=== PATIENT | female | born 1945 | race Caucasian/White ===

== ENCOUNTER 2016-08-26 11:43 | Inpatient (IN) | payer MEDICARE, MEDICAID ==
[~2016-08-26] VITALS: Ht 152.4 cm; Wt 61.5 kg
[~2016-08-26 11:43] MED LIST: *WHEELCHAI; /ADVA50050; /ALEN70TA; /ALEN70TA OR; /ALEN7SOL OR; /AUGM875TA; /AUGM875TA PO; /ESOM40CA; /ESOM40CA OR; /MOXI40TA; /PANT40TA; /TIOT18INH; /TIOT18INH INH; /WARF2TA OR; /WARF5TA OR; ACET500C; ADVAIR250 INHALATION; ADVAIR500 INHALATION; ALBOTERNEB INHALATION; ALBU17IN2 INH; ALPR0.25; ALPR0.25 OR; ALPR0.25 PO; ALTA1CAP2 PO; AMOXIL875 PO; ASPEC325 PO; ASPI325T; ASPI81TA83 OR; ATROV NEBS; AVALOX; AVELOX PO; BABY81CH; BACT2CRE TOP; CAHNTIXC PO; CAL/VITD PO; CALC12502 OR; CARAFATE1 PO; CARD60TA OR; CEFTIN500 PO; CELEBRE200 PO; CHAN0.5P PO; CIPR500T19; CIPR500T4; CIPRO PO; CLARINEX PO; COMBAER6 INH; COMBIVENT; COMBIVENT PO; COMBVENT; COMBVENT INH; DARVOCET-N PO; DECADRON PO; DETR1TAB4 PO; DETR2CAP; DILT120C79 PO; DOCQ100C PO; DOXY100T; DUONSOL; DUONSOL IN; DUONSOL INHALATION; ECOT325T5; ECOT81TA5 PO; ESTRACE PO; FAMO20TA PO; FAMO20TA2 PO; FLAG500T; FLEXERIL PO; FLEXERIL10 PO; FLEXERIL5 PO; FLOVENT110 PO; FLUC10TA; FURO40TA2 PO; GLUC500T; GUAI1TAB PO; HABITROL14 TOPICAL; IBUP-1114 PO; IMOD2TAB16 PO; KLOR1TAB77 PO; KLORCON20 PO; LACTOBACILLUS; LASI20TA; LASI20TA OR; LASI40TA; LASIX40 PO; LEVA500T; LEVA500T OR; LEVA500T PO; LEVA750T7 PO; LORTAB5 PO; MAGN400T5 PO; METF500T4; METO5TAB2 PO; MUCI600T37 PO; MUCINEX; MUCINEX OR; MUCINEX PO; NEXI40CA PO; NICO21DI4; NYSTAT100 PO; NYSTATIN ORAL; NYSTATINCR TOPICAL; ORASONE; OSCAL PO; OYST500T58; PLAV75TA2; PLAV75TA2 OR; POTA10CA2 PO; POTA20TA; POTA20TA OR; POTA20TA2; PRED10TA PO; PRED10TA2; PRED10TA2 PO; PRED20TA; PRED20TA OR; PRED5TAB; PREDNISO10 PO; PREDNISO20 PO; PREDNISON5 PO; PREVACID15 PO; PRILOSEC20 PO; PROAAER10 INH; PROTONIX40 PO; QUININE325 PO; RAMI25CA; RAMI25CA OR; RAMI25CA PO; ROBAXIN500 PO; SALINE; SHOWERCH; SOMA250T PO; SPIR1CAP INH; SYMB16INH INH; SYMB80AE; SYMB80AE IN; SYMBI INHALATION; TETR500C OR; TOLT2TA OR; TORADOL PO; TRAM50TA2 OR; TUMS500C; TYLE325T5 PO; TYLE500T53; TYLE500T53 OR; TYLENOL500 PO; TYLENOLCOD PO; ULTRAM50 PO; VARE1TA; VENTAER; VENTAER INH; VENTOLIN NEBULIZER INH; VICODIN PO; VIOXX25 PO; WELLBSR150 PO; XANA0.25; XANAX0.25 PO; [UNRECOGNIZED DRUG - CODE]; [UNRECOGNIZED DRUG - CODE] PO; [UNRECOGNIZED DRUG - OTHER]; [UNRECOGNIZED DRUG - OTHER]; [UNRECOGNIZED DRUG - OTHER]; [UNRECOGNIZED DRUG - OTHER] PO; [UNRECOGNIZED DRUG - OTHER] PO; mucinex
[2016-08-26] MEDS ORDERED: TRAM50TA2 PO ×2 (12:08→16:26)
[2016-08-26] MEDS ORDERED: PRED5TA PO ×2 (12:08→16:26)
[2016-08-26] MEDS ORDERED: TYLE500T78 PO ×2 (12:08→16:26)
[2016-08-26] MEDS ORDERED: BLIN0.25 OP (12:08)
[2016-08-26] MEDS ORDERED: SPIR25TA2 PO ×2 (12:08→16:26)
[2016-08-26] MEDS ORDERED: ALPR0.25 PO ×2 (12:08→16:26)
[2016-08-26] MEDS ORDERED: COLA100C5 PO ×2 (12:08→16:26)
[2016-08-26] MEDS ORDERED: INCR1INH IN (12:08)
[2016-08-26] MEDS ORDERED: IBUP-1114 PO ×2 (12:08→16:26)
[2016-08-26] MEDS ORDERED: LORA10CA PO (12:08)
[2016-08-26 12:42] LABS: ABG BASE EXCESS 12.2 (-2.0-2.0); ABG PARTIAL PRESSURE O2 96.3 mmHg (75.0-100.0); ABG pH (ARTERIAL) 7.395 UNITS (7.350-7.450)
[2016-08-26] MEDS ORDERED: methylPREDNISolone INJ 125 MG/2 ML VIAL (J2930) IV ONE (12:45)
[2016-08-26 12:46] LABS: ABG PARTIAL PRESSURE CO2 66.8 mmHg (35.0-45.0)
[2016-08-26 12:54] LABS: BASO % 0.2 % (0.0-1.0); EOS # 0.1 K/mm3 (0.0-0.50); EOS % 0.8 % (0.0-3.0); LARGE UNSTAINED CELL # 0.1 K/mm3 (0.0-0.4); LYMPH # 1.5 K/mm3 (1.5-4.5); LYMPH % 11.7 % (24.0-44.0); MEAN CORPUSCULAR HEMOGLOBIN 29.8 pg (27.0-33.0); MEAN CORPUSCULAR HGB CONC 33.2 g/dl (32.0-36.5); MEAN CORPUSCULAR VOLUME 89.8 fl (80.0-96.0); MONO # 0.6 K/mm3 (0.0-0.8); NEUTROPHILS # 9.6 K/mm3 (1.8-7.7); NEUTROPHILS % 81.3 % (36.0-66.0); PLATELET COUNT, AUTOMATED 343 k/mm3 (150-450); RED CELL DISTRIBUTION WIDTH 13.4 % (11.5-14.5); WHITE BLOOD COUNT 11.8 K/mm3 (4.0-10.0)
[2016-08-26] MEDS: IPRATROPIUM 0.5MG/ALBUTEROL 2.5MG INH SOL UD 3ML (DUONEB)(J7620) NEB SCH ×4 (12:55→20:24)
[2016-08-26 12:56] LABS: INR 0.98
[2016-08-26 12:58] LABS: ALKALINE PHOSPHATASE 105 U/L (45-117); ALT/SGPT 22 U/L (12-78); AMYLASE 26 U/L (25-115); ANION GAP 6 MEQ/L (8-16); AST/SGOT 14 U/L (15-37); BILIRUBIN,DIRECT < 0.1 MG/DL (0.0-0.2); BILIRUBIN,TOTAL 0.5 MG/DL (0.2-1.0); BLOOD UREA NITROGEN 9 MG/DL (7-18); CARBON DIOXIDE LEVEL 42 MEQ/L (21-32); CHLORIDE LEVEL 90 MEQ/L (98-107); CREATININE FOR GFR 0.63 MG/DL (0.55-1.02); GLOMERULAR FILTRATION RATE > 60.0 (>39); GLUCOSE, FASTING 126 MG/DL (83-110); POTASSIUM SERUM 3.8 MEQ/L (3.5-5.1); SODIUM LEVEL 138 MEQ/L (136-145)
[2016-08-26 12:59] LABS: ALBUMIN 3.2 GM/DL (3.2-5.2); TOTAL PROTEIN 7.8 GM/DL (6.4-8.2)
[2016-08-26] MEDS ORDERED: CEFEPIME HCL 1 GM in D5W MINI-BAG PLUS 50 ML IV ONE (13:00)
[2016-08-26] MEDS ORDERED: NS IV ONE (13:00)
[2016-08-26] MEDS ORDERED: DILUENT IV ONE (13:00)
[2016-08-26] MEDS ORDERED: NS 500 ML IV ONE (13:00)
[2016-08-26] MEDS ORDERED: ISOVUE-370 76% 100ML VIAL (Q9967) As Ordered ONE (13:22)
--- NOTE | 2016-08-26 13:22 | REP ---
Clinical: Sepsis . Comparison: 07/14/2014 . Findings: The mediastinum and cardiac silhouette are stable and within normal limits for portable technique. The lung enriquez demonstrate chronic changes including bibasilar scarring and trace superimposed basilar atelectasis cannot be excluded. No effusion. No pneumothorax Skeletal structures are intact. Impression: Cannot exclude trace superimposed basilar atelectasis. Signed by Bernardo Cohn MD 08/26/2016 01:15 P
--- NOTE | 2016-08-26 15:02 | REP ---
HISTORY: Pain and swelling with dyspnea. TECHNIQUE: Multiple ultrasonographic images of the deep venous structures of the bilateral thighs were obtained from the common femoral vein to the popliteal vein along with Doppler interrogation and color flow Doppler images. FINDINGS: There is no abnormal echogenic material seen within any of the visualized deep venous structures that would suggest acute thrombosis. Coaptation is unremarkable throughout. Doppler interrogation shows an expected response to respiratory variability and augmentation. The color flow images show what appears to be a normal vascular pattern throughout. IMPRESSION: There is no ultrasonographic evidence of deep venous thrombosis involving any of the visualized deep venous structures of the bilateral thighs, as described above. Signed by Venkata Candelaria DO 08/26/2016 03:43 P
[2016-08-26] MEDS ORDERED: DEXTROSE 50% 50 ML SYRINGE IV PRN (15:15)
[2016-08-26] MEDS ORDERED: ALBUTEROL 90 MCG/ACT 8GM HFA INHALER INH PRN (15:15)
[2016-08-26] MEDS ORDERED: FURO40TA2 PO (16:26)
[2016-08-26] MEDS ORDERED: ASPI1TAB PO (16:26)
[2016-08-26] MEDS ORDERED: MAGN400T5 PO (16:26)
[2016-08-26] MEDS ORDERED: FAMO20TA PO (16:26)
[2016-08-26] MEDS ORDERED: IPRASOL4 INH (16:26)
[2016-08-26] MEDS ORDERED: COMBAER6 INH (16:26)
[2016-08-26] MEDS ORDERED: CLAR10CA3 PO (16:26)
[2016-08-26] MEDS ORDERED: SYMB16INH INH (16:26)
[2016-08-26] MEDS ORDERED: TOLT1CAP4 PO (16:26)
[2016-08-26] MEDS ORDERED: MUCI600T37 PO (16:26)
[2016-08-26] MEDS ORDERED: ALBU17IN INH (16:26)
[2016-08-26] MEDS ORDERED: INCR1INH INH (16:26)
[2016-08-26] MEDS ORDERED: GUAI1TAB PO (16:53)
[2016-08-26 17:30] VITALS: BP 119/56
[2016-08-26] MEDS: HumaLOG INSULIN (NovoLOG) PER UNIT SC SCH ×2 (17:47→21:00)
[2016-08-26] MEDS: LevoFLOXacin IV 500 MG in APPROPRIATE DILUENT 1 EA IV SCH (19:32)
[2016-08-26 22:00] VITALS: BP 118/56
[2016-08-26] MEDS: methylPREDNISolone INJ 125 MG/2 ML VIAL (J2930) IV SCH (22:39)
[2016-08-27] MEDS: IPRATROPIUM 0.5MG/ALBUTEROL 2.5MG INH SOL UD 3ML (DUONEB)(J7620) NEB SCH ×5 (02:00→21:35)
--- NOTE | 2016-08-27 03:04 | HPE ---
DATE OF ADMISSION: 08/26/2016 PRIMARY CARE PROVIDER: Herbert Felton MD. CHIEF COMPLAINT: Shortness of breath. HISTORY OF PRESENT ILLNESS: The patient is a 71-year-old female with a history of advanced chronic obstructive pulmonary disease (COPD) dependent on oxygen 2 liters, and also chronic steroid with prednisone 5 mg daily. She was brought to the emergency department (ED) due to a few days' history of progressive shortness of breath and she had dropped her saturations significantly at home. Upon arrival to the ED, her saturation was 74% on oxygen. Blood pressure was also low, 95 over 40 something. She was in respiratory distress. Right away she was treated with cefepime antibiotic, Solu-Medrol, nebulizer treatment and oxygen. Patient's condition did improve dramatically after the treatment; however, she was not able to give any history as to why she was in the hospital and what prompted her visit. She, however, denies any fever, chills, cough, and chest pain. REVIEW OF SYSTEMS: 10-point systems assessed are negative except listed above in history of present illness (HPI). PAST MEDICAL HISTORY: Also includes: 1. Paroxysmal atrial fibrillation. 2. Benign hypertension. 3. Urinary incontinence. 4. Coronary artery disease. 5. Chronic diarrhea with intermittent constipation. 6. Anxiety. 7. Diastolic congestive heart failure (CHF). 8. Osteoporosis. PAST SURGICAL HISTORY: Includes: 1. Hysterectomy. 2. Appendectomy. 3. Tubal ligation. 4. Removal of a cyst, benign, from the right breast. FAMILY HISTORY: Patient reports father at age of 64 from coronary artery disease (CAD). Mother in her 70s from a cancer. She currently has a sister who is healthy. SOCIAL HISTORY: She is an ex-smoker, quit 10 years ago, prior to that smoked two packs a day for over 30 years. Rarely drinks alcohol. Denies recreational drug use. for 10 years, had four children who are healthy. She gets around with wheelchair and walker and lives with her sister and children. ALLERGIES TO MEDICATIONS: Z-BARNEY, AZITHROMYCIN, reaction is hives. LIST OF HOME MEDICATIONS: Includes: - albuterol two puffs every four as needed - acetaminophen extra strength 500 mg tablets take two tablets every 4 hours as needed for pain - Combivent Respimat 20/100 mcg one puff inhaled four times a day - alprazolam 0.25 mg every 6 hours as needed for anxiety - baby aspirin 81 mg once daily - Symbicort 160/4.5 mcg a puff twice a day - docusate sodium 100 mg once a day - famotidine 20 mg once daily - Lasix 40 mg twice a day - guaifenesin 60 mg by mouth every 12 hours - ibuprofen 400 mg three times a day as needed - loratadine 10 mg once a day - magnesium oxide 400 mg once daily - prednisone 5 mg once a day - spironolactone 25 mg daily - tramadol 50 mg every 6 hours as needed for pain PHYSICAL EXAMINATION: VITAL SIGNS: Blood pressure 132/60, pulse 92, respiratory rate 20, oxygen saturation 97% on 2 liters of oxygen, temperature 98.4 degrees Fahrenheit. GENERAL: She is alert, oriented to person and place. She appears comfortable now without significant distress. HEENT: Pupils are equal, round and reactive to light. Extraocular muscles are intact. Anicteric sclerae. Mucous membranes are moist. Neck is supple, nontender. No palpable adenopathy. CARDIOVASCULAR SYSTEM: S1, S2 present with regular rate. No audible murmur. RESPIRATORY SYSTEM: Lungs with decreased breath sounds at the bases. No audible wheezes. No rales present. GASTROINTESTINAL: Abdomen is soft, nontender, nondistended. Bowel sounds are normal. No guarding or rebound. RECTAL: Exam deferred. MUSCULOSKELETAL SYSTEM: There is no edema, cyanosis or calf tenderness. Pulses are palpable in all extremities. SKIN: Warm, dry, acyanotic without rash, petechiae. LABORATORIES: Hematology: White blood cell count is 12, hemoglobin 14, hematocrit 41, platelets 343. Coagulopathy: INR is 0.98, PT 13.1, PTT 31.5. Chemistry: Sodium 138, potassium 3.8, chloride 90, bicarbonate 42, BUN 9, creatinine 0.63, GFR greater than 60, fasting glucose 126, lactic acid 2.5, repeat 2.6. Liver function tests within normal limits. Calcium 9.0. Cardiac enzymes: Troponin I less than 0.02. CK 91, CK-MB 2.9. C-reactive protein 2.25. Total protein 7.8, albumin 3.2, amylase 26. ABG pH 7.39, pCO2 67, pO2 96.3, bicarbonate 40, oxygen saturation 97, base excess 12.2. IMAGING STUDIES: Chest x-ray cannot exclude trace superimposed basilar atelectasis. Vascular ultrasound no evidence of deep venous thrombosis (DVT). IMPRESSION: 1. Acute hypoxic hypercapnia respiratory failure due to chronic obstructive pulmonary disease (COPD) exacerbation. 2. Possible sepsis, source unknown. 3. History of hypertension. Blood pressure stable. 4. History of coronary artery disease (CAD) and diastolic congestive heart failure (CHF), also stable. 5. History of gastroesophageal reflux disease (GERD). PLAN: Patient was admitted to the progressive care unit (PCU). Continued on antibiotic Levaquin which will cover both lungs and urine. Solu-Medrol, nebulizer treatment, oxygen. Resume her needed home medications. Deep venous thrombosis (DVT) prophylaxis will be with subcutaneous Lovenox. Physical therapy ordered as well.
[2016-08-27] MEDS: methylPREDNISolone INJ 125 MG/2 ML VIAL (J2930) IV SCH (05:15)
[2016-08-27 06:00] VITALS: BP 131/62
[2016-08-27 06:59] LABS: ALBUMIN 2.7 GM/DL (3.2-5.2); ALBUMIN/GLOBULIN RATIO 0.69 (1.00-1.93); ALKALINE PHOSPHATASE 97 U/L (45-117); ALT/SGPT 39 U/L (12-78); ANION GAP 3 MEQ/L (8-16); AST/SGOT 27 U/L (15-37); BILIRUBIN,TOTAL 0.3 MG/DL (0.2-1.0); BLOOD UREA NITROGEN 10 MG/DL (7-18); CALCIUM LEVEL 9.1 MG/DL (8.8-10.2); CARBON DIOXIDE LEVEL 36 MEQ/L (21-32); CHLORIDE LEVEL 98 MEQ/L (98-107); CREATININE FOR GFR 0.53 MG/DL (0.55-1.02); GLOMERULAR FILTRATION RATE > 60.0 (>39); GLUCOSE, FASTING 159 MG/DL (83-110); POTASSIUM SERUM 3.8 MEQ/L (3.5-5.1); SODIUM LEVEL 137 MEQ/L (136-145); TOTAL PROTEIN 6.6 GM/DL (6.4-8.2)
[2016-08-27] MEDS ORDERED: ALPRAZolam 0.25 MG TAB PO PRN (07:00)
[2016-08-27] MEDS ORDERED: traMADol 50 MG TAB PO PRN (07:00)
[2016-08-27 07:18] LABS: BASO % 0.2 % (0.0-1.0); EOS % 0.3 % (0.0-3.0); LARGE UNSTAINED CELL % 0.3 % (0.0-4.0); LYMPH # 1.2 K/mm3 (1.5-4.5); LYMPH % 8.3 % (24.0-44.0); MEAN CORPUSCULAR HEMOGLOBIN 30.2 pg (27.0-33.0); MEAN CORPUSCULAR HGB CONC 33.6 g/dl (32.0-36.5); MEAN CORPUSCULAR VOLUME 89.9 fl (80.0-96.0); MONO % 7.4 % (0.0-5.0); NEUTROPHILS # 11.3 K/mm3 (1.8-7.7); NEUTROPHILS % 83.4 % (36.0-66.0); RED CELL DISTRIBUTION WIDTH 13.3 % (11.5-14.5); WHITE BLOOD COUNT 13.5 K/mm3 (4.0-10.0)
[2016-08-27 07:19] LABS: PLATELET COUNT, AUTOMATED 348 k/mm3 (150-450)
--- NOTE | 2016-08-27 07:21 | ECGEPIP ---
Stationary ECG Study [facility] - ED Test Date: 2016-08-26 Pat Name: JOEL DRAKE Department: Room: - Gender: F End Trimmer: rn : 1945 Requested By: Maribel Givens Order Number: [id number] Reading MD: Maribel Givens Measurements Intervals [place] Rate: 91 P: 61 [place]: 133 QRS: 212 QRSD: 126 T: 52 QT: 381 QTc: 469 Interpretive Statements SINUS RHYTHM INDETERMINATE AXIS RIGHT BUNDLE BRANCH BLOCK BASELINE ARTIFACT LIMITS INTERPRETATION Electronically Signed On 08-27-2016 7:20:53 EDT by Maribel Givens
[2016-08-27] MEDS: HumaLOG INSULIN (NovoLOG) PER UNIT SC SCH ×4 (07:49→21:00)
[2016-08-27] MEDS: ENOXAPARIN 40 MG/0.4 ML SYRINGE (J1650) SC SCH (07:49)
[2016-08-27] MEDS: LORATADINE 10 MG TAB PO SCH (07:50)
[2016-08-27] MEDS: MAGNESIUM OXIDE 400 MG TAB (MAG-OX) PO SCH (07:50)
[2016-08-27] MEDS: FAMOTIDINE 20 MG TAB PO SCH (07:50)
[2016-08-27] MEDS: SPIRONOLACTONE 25 MG TAB PO SCH (07:50)
[2016-08-27] MEDS: guaiFENesin ER 600 MG TAB PO SCH ×2 (07:50→21:21)
[2016-08-27] MEDS: DOCUSATE SODIUM 100 MG CAP PO SCH (07:50)
[2016-08-27] MEDS: ASPIRIN 81 MG ENTERIC TAB PO SCH (07:50)
[2016-08-27] MEDS: FUROSEMIDE 40 MG TAB PO SCH ×2 (07:50→21:21)
[2016-08-27 09:00] VITALS: BP 113/50
[2016-08-27] MEDS: TOLTERODINE TARTRATE 2 MG LA CAP (DETROL LA) PO SCH (09:25)
[2016-08-27] MEDS: SYMBICORT 160/4.5MCG INHALER 6GM INH SCH ×2 (11:01→20:30)
[2016-08-27] MEDS: predniSONE 20 MG TAB PO SCH (11:35)
[2016-08-27] MEDS: SENOKOT S TAB PO SCH ×2 (11:35→21:21)
--- NOTE | 2016-08-27 11:42 | IPNPDOC ---
Date Seen The patient was seen on 08/27/16. Progress Note Subjective: Mrs. Chanel was seen and evaluated at bedside today. She states that her breathing is significantly improved, she is back on her baseline home oxygen of 2 L. She states that the main reason why she presented to the ED was 4 nausea and vomiting for the past few days, and then she was only incidentally discovered to be hypoxic when she was en route to the hospital. She states that she is feeling much better since she has arrived to the hospital, she was able to eat breakfast this morning with no incident. She does report that she has had multiple episodes of diarrhea over the past few weeks as well, but this is interspersed by episodes of constipation as well. This morning she did have a solid formed bowel movement, and did have to strain to pass it. Otherwise, she is feeling much better at this time, and the remainder of her review of systems is negative. Objective: General: Awake, alert, oriented 3. She is in no apparent distress at this time. HEENT: Head normocephalic, atraumatic, sclera are nonicteric. Hearing is grossly intact to conversation. Respiratory: Diminished lung sounds throughout. Cardiovascular: Distant heart sounds, rate appears to be normal. I cannot appreciate any murmurs. Abdomen: Abdomen does appear slightly distended, and she is diffusely tender to palpation. Extremities: 2+ pulses in the radial and dorsalis pedis bilaterally. No evidence of clubbing or cyanosis. Assessment: 1. Acute hypoxic respiratory failure with hypercapnia due to COPD exacerbation 2. Possible sepsis of an unknown etiology, she has had nausea and vomiting for the past few days however 3. Hypertension 4. Coronary artery disease 5. Diastolic congestive heart failure, stable 6. GERD 7. History of Paroxysmal atrial fibrillation 8. Leukocytosis 9. Lactic acidosis 10. DVT prophylaxis with Lovenox Plan: Her respiratory symptoms appear to have been improved, we will switch her over to 40 mg and his own by mouth daily. Respiratory panel is negative. Blood cultures are still pending. She does complain of abdominal distention and pain, we will order a KUB. For her constipation she has been started on Senokot-S. Otherwise, for the remainder of her chronic medical problems, we'll continue with her usual home regimen. My preceptor for this patient encounter was physically present in the building during the encounter and was fully available. As needed, all aspects of the patient interview, examination, medical decision making process, and medical care plan development were reviewed and approved by the preceptor. Preceptor is aware and concurs with the plan as stated in the body of this note and will attest to such by his/her cosignature. VS, I&O, 24H, Fishbone Vital Signs/I&O Vital Signs Date Time Temp Pulse Resp B/P (MAP) Pulse Ox O2 Delivery O2 Flow Rate FiO2 08/27/16 06:00 97.2 86 18 131/62 (85) 96 Nasal Cannula 2.0 08/26/16 12:18 97 I&O- Last 24 Hours up to 6 AM 08/27/16 06:00 Intake Total 940 ml Output Total 0 ml Balance 940 ml Laboratory Data 24H LABS Laboratory Tests 2 08/26/16 12:12: White Blood Count 11.8H, Red Blood Count 4.52, Hemoglobin 13.5, Hematocrit 40.6 , Mean Corpuscular Volume 89.8, Mean Corpuscular Hemoglobin 29.8, Mean Corpuscular Hemoglobin Concent 33.2, Red Cell Distribution Width 13.4, Platelet Count 343, Neutrophils (%) (Auto) 81.3H, Lymphocytes (%) (Auto) 11.7L, Monocytes (%) (Auto) 5.0, Eosinophils (%) (Auto) 0.8, Basophils (%) (Auto) 0.2, Neutrophils # (Auto) 9.6H, Lymphocytes # (Auto) 1.5, Monocytes # (Auto) 0.6, Eosinophils # (Auto) 0.1, Basophils # (Auto) 0.0, Large Unclassified Cells % 1.0 , Large Unclassified Cells # 0.1, Prothrombin Time 13.1, Prothromb Time International Ratio 0.98, Activated Partial Thromboplast Time 31.5, Anion Gap 6L , Glomerular Filtration Rate > 60.0, Lactic Acid Level 2.5*H, Calcium Level 9.0 , Aspartate Amino Transf (AST/SGOT) 14L, Alanine Aminotransferase (ALT/SGPT) 22 , Alkaline Phosphatase 105, Total Bilirubin 0.5, Direct Bilirubin < 0.1, Total Creatine Kinase 91, Creatine Kinase MB 2.9, Creatine Kinase MB Relative Index 3.18, Troponin I < 0.02, C-Reactive Protein, Quantitative 2.28H, Total Protein 7.8, Albumin 3.2, Albumin/Globulin Ratio 0.70L, Amylase Level 26 08/26/16 12:25: Blood Gas Bicarbonate Standard 36.0H, Arterial Blood pH 7.395, Arterial Blood Partial Pressure CO2 66.8*H, Arterial Blood Partial Pressure O2 96.3, Arterial Blood Total CO2 42.0H, Arterial Blood HCO3 40.0H, Arterial Blood Base Excess 12.2H, Arterial Blood Oxygen Saturation 97.2 08/26/16 16:35: Lactic Acid Followup at 4 Hours 2.6*H 08/26/16 17:35: Bedside Glucose (Misc Panel) 191H 08/26/16 21:15: Bedside Glucose (Misc Panel) 174H 08/27/16 05:53: White Blood Count 13.5H, Red Blood Count 4.11, Hemoglobin 12.4, Hematocrit 36.9 , Mean Corpuscular Volume 89.9, Mean Corpuscular Hemoglobin 30.2, Mean Corpuscular Hemoglobin Concent 33.6, Red Cell Distribution Width 13.3, Platelet Count 348, Neutrophils (%) (Auto) 83.4H, Lymphocytes (%) (Auto) 8.3L, Monocytes (%) (Auto) 7.4H, Eosinophils (%) (Auto) 0.3, Basophils (%) (Auto) 0.2, Neutrophils # (Auto) 11.3H, Lymphocytes # (Auto) 1.2L, Monocytes # (Auto) 1.0H, Eosinophils # (Auto) 0.0, Basophils # (Auto) 0.0, Large Unclassified Cells % 0.3 , Large Unclassified Cells # 0.0, Anion Gap 3L, Glomerular Filtration Rate > 60.0, Blood Urea Nitrogen 10, Creatinine 0.53L, Sodium Level 137, Potassium Level 3.8, Chloride Level 98, Carbon Dioxide Level 36H, Calcium Level 9.1, Aspartate Amino Transf (AST/SGOT) 27, Alanine Aminotransferase (ALT/SGPT) 39, Alkaline Phosphatase 97, Total Bilirubin 0.3, Total Protein 6.6, Albumin 2.7L, Albumin/Globulin Ratio 0.69L 08/27/16 09:28: Urine Appearance HAZY, Urine Color YELLOW, Urine pH 5.0, Urine Specific [place] 1.018, Urine Protein NEGATIVE, Urine Glucose (UA) NEGATIVE, Urine Ketones NEGATIVE, Urine Urobilinogen 0.2, Urine Bilirubin NEGATIVE, Urine Leukocyte Esterase TRACEH, Urine Blood NEGATIVE, Urine Nitrite NEGATIVE, Urine WBC (Auto) 6H, Urine RBC (Auto) 2, Urine Hyaline Casts (Auto) 0, Urine Bacteria (Auto) NEGATIVE, Urine Squamous Epithelial Cells 3, Urine Sperm (Auto) CBC/BMP Laboratory Tests 08/26/16 12:12 Red Blood Count 4.52, Mean Corpuscular Volume 89.8, Mean Corpuscular Hemoglobin 29.8, Mean Corpuscular Hemoglobin Concent 33.2, Red Cell Distribution Width 13.4 , Neutrophils (%) (Auto) 81.3 H, Lymphocytes (%) (Auto) 11.7 L, Monocytes (%) ( Auto) 5.0, Eosinophils (%) (Auto) 0.8, Basophils (%) (Auto) 0.2, Neutrophils # ( Auto) 9.6 H, Lymphocytes # (Auto) 1.5, Monocytes # (Auto) 0.6, Eosinophils # ( Auto) 0.1, Basophils # (Auto) 0.0 08/27/16 05:53 Red Blood Count 4.11, Mean Corpuscular Volume 89.9, Mean Corpuscular Hemoglobin 30.2, Mean Corpuscular Hemoglobin Concent 33.6, Red Cell Distribution Width 13.3 , Neutrophils (%) (Auto) 83.4 H, Lymphocytes (%) (Auto) 8.3 L, Monocytes (%) ( Auto) 7.4 H, Eosinophils (%) (Auto) 0.3, Basophils (%) (Auto) 0.2, Neutrophils # (Auto) 11.3 H, Lymphocytes # (Auto) 1.2 L, Monocytes # (Auto) 1.0 H, Eosinophils # (Auto) 0.0, Basophils # (Auto) 0.0, Calcium Level 9.1, Aspartate Amino Transf (AST/SGOT) 27, Alanine Aminotransferase (ALT/SGPT) 39, Alkaline Phosphatase 97, Total Bilirubin 0.3, Total Protein 6.6, Albumin 2.7 L Microbiology Microbiology 08/26/16 Blood Culture, Received Pending 08/26/16 Blood Culture, Received Pending 08/27/16 Respiratory Virus Panel (PCR) (CHRISTOPHE) - Final, Complete GME ATTESTATION GME ATTESTATION My preceptor for this patient encounter was physically present in the building during the encounter and was fully available. As needed, all aspects of the patient interview, examination, medical decision making process, and medical care plan development were reviewed and approved by the preceptor. Preceptor is aware and concurs with the plan as stated in the body of this note and will attest to such by his/her cosignature. ATTENDING NOTE I saw and evaluated the patient. I agree with the findings and the plan of care as documented in the residents note. BROCK Cannon MD, DO Aug 27, 2016 11:42 JASON VERA MD Aug 28, 2016 06:36
--- NOTE | 2016-08-27 12:09 | REP ---
Clinical: Abdominal pain. Technique: Single supine view of the abdomen and pelvis. Comparison: 10/19/2009. Findings: Bowel gas pattern is nonspecific. No organomegaly. Skeletal structures demonstrate osteopenia and degenerative changes. Impression: Nonspecific bowel gas pattern. Signed by Bernardo Cohn MD 08/27/2016 12:00 P
[2016-08-27] MEDS ORDERED: methylPREDNISolone INJ 40 MG/1 ML VIAL (J2920) IV SCH (13:00)
[2016-08-27] MEDS ORDERED: methylPREDNISolone INJ 125 MG/2 ML VIAL (J2930) IV SCH (13:00)
[2016-08-27 14:00] VITALS: BP 126/58
[2016-08-27] MEDS: LevoFLOXacin IV 500 MG in APPROPRIATE DILUENT 1 EA IV SCH (18:05)
[2016-08-27 22:00] VITALS: BP 126/57
[2016-08-28] MEDS: IPRATROPIUM 0.5MG/ALBUTEROL 2.5MG INH SOL UD 3ML (DUONEB)(J7620) NEB SCH ×4 (01:21→20:00)
[2016-08-28 06:00] VITALS: BP 104/51
[2016-08-28 06:49] LABS: BASO % 0.2 % (0.0-1.0); EOS % 0.2 % (0.0-3.0); LARGE UNSTAINED CELL # 0.2 K/mm3 (0.0-0.4); LARGE UNSTAINED CELL % 0.9 % (0.0-4.0); LYMPH # 1.6 K/mm3 (1.5-4.5); LYMPH % 9.1 % (24.0-44.0); MEAN CORPUSCULAR HEMOGLOBIN 29.3 pg (27.0-33.0); MEAN CORPUSCULAR HGB CONC 32.6 g/dl (32.0-36.5); MEAN CORPUSCULAR VOLUME 89.7 fl (80.0-96.0); MONO # 1.2 K/mm3 (0.0-0.8); MONO % 7.4 % (0.0-5.0); NEUTROPHILS # 13.2 K/mm3 (1.8-7.7); NEUTROPHILS % 82.2 % (36.0-66.0); PLATELET COUNT, AUTOMATED 323 k/mm3 (150-450); RED CELL DISTRIBUTION WIDTH 13.4 % (11.5-14.5)
[2016-08-28 07:02] LABS: ALBUMIN 2.7 GM/DL (3.2-5.2); ALBUMIN/GLOBULIN RATIO 0.87 (1.00-1.93); ALKALINE PHOSPHATASE 88 U/L (45-117); ALT/SGPT 28 U/L (12-78); ANION GAP 5 MEQ/L (8-16); AST/SGOT 14 U/L (15-37); BILIRUBIN,TOTAL 0.2 MG/DL (0.2-1.0); BLOOD UREA NITROGEN 15 MG/DL (7-18); CALCIUM LEVEL 8.7 MG/DL (8.8-10.2); CARBON DIOXIDE LEVEL 42 MEQ/L (21-32); CHLORIDE LEVEL 98 MEQ/L (98-107); CREATININE FOR GFR 0.58 MG/DL (0.55-1.02); GLOMERULAR FILTRATION RATE > 60.0 (>39); GLUCOSE, FASTING 94 MG/DL (83-110); SODIUM LEVEL 145 MEQ/L (136-145); TOTAL PROTEIN 5.8 GM/DL (6.4-8.2)
[2016-08-28] MEDS: SYMBICORT 160/4.5MCG INHALER 6GM INH SCH ×2 (07:16→20:10)
[2016-08-28 07:23] LABS: POTASSIUM SERUM 2.9 MEQ/L (3.5-5.1)
[2016-08-28] MEDS: HumaLOG INSULIN (NovoLOG) PER UNIT SC SCH ×4 (07:30→20:57)
[2016-08-28] MEDS: FAMOTIDINE 20 MG TAB PO SCH (08:07)
[2016-08-28] MEDS: DOCUSATE SODIUM 100 MG CAP PO SCH (08:07)
[2016-08-28] MEDS: guaiFENesin ER 600 MG TAB PO SCH ×2 (08:07→20:57)
[2016-08-28] MEDS: SENOKOT S TAB PO SCH ×2 (08:07→20:57)
[2016-08-28] MEDS: FUROSEMIDE 40 MG TAB PO SCH ×2 (08:07→20:57)
[2016-08-28] MEDS: ENOXAPARIN 40 MG/0.4 ML SYRINGE (J1650) SC SCH (08:08)
[2016-08-28] MEDS: MAGNESIUM OXIDE 400 MG TAB (MAG-OX) PO SCH (08:15)
[2016-08-28] MEDS: LORATADINE 10 MG TAB PO SCH (08:15)
[2016-08-28] MEDS: predniSONE 20 MG TAB PO SCH (08:15)
[2016-08-28] MEDS: SPIRONOLACTONE 25 MG TAB PO SCH (08:15)
[2016-08-28] MEDS: TOLTERODINE TARTRATE 2 MG LA CAP (DETROL LA) PO SCH (08:16)
[2016-08-28] MEDS: ASPIRIN 81 MG ENTERIC TAB PO SCH (08:16)
[2016-08-28] MEDS: POTASSIUM CHLORIDE 10 MEQ SR TABLET PO SCH ×2 (08:16→20:56)
[2016-08-28] MEDS: KCL 20MEQ IN 0.45NS 1000ML 1,000 ML IV SCH ×2 (09:23→21:20)
[2016-08-28 10:00] VITALS: BP 120/62
[2016-08-28 12:46] LABS: ANION GAP 3 MEQ/L (8-16); BLOOD UREA NITROGEN 16 MG/DL (7-18); CALCIUM LEVEL 8.7 MG/DL (8.8-10.2); CARBON DIOXIDE LEVEL 42 MEQ/L (21-32); CHLORIDE LEVEL 94 MEQ/L (98-107); CREATININE FOR GFR 0.62 MG/DL (0.55-1.02); GLOMERULAR FILTRATION RATE > 60.0 (>39); GLUCOSE, FASTING 160 MG/DL (83-110); POTASSIUM SERUM 3.4 MEQ/L (3.5-5.1); SODIUM LEVEL 139 MEQ/L (136-145)
[2016-08-28 14:00] VITALS: BP 131/60
--- NOTE | 2016-08-28 15:14 | IPN ---
DATE: 08/28/2016 The patient is seen and examined. Reported three episodes of diarrhea overnight. GI panel has been negative. Denies any chest pain, pressure, discomfort, fevers or chills. Respirations much improved. Tolerating oral diet. Denies any nausea, vomiting. Was found to be hypokalemia. VITAL SIGNS: Temperature 98.5, pulse 94, respirations 20, blood pressure 104/51, pulse oximetry 96% on 2 liters nasal cannula. LABORATORY DATA: WBC 16, hemoglobin and hematocrit 12.4/38.1, platelets 323. Chemistry: Sodium 139, potassium 3.4, chloride 94, bicarbonate 42, BUN 16, creatinine 0.6, magnesium 2.0. GI panel negative. Respiratory panel negative. Blood cultures negative to date. PHYSICAL EXAMINATION: GENERAL: The patient is alert and oriented times three. No acute distress. HEENT: Normocephalic, atraumatic. PULMONARY: Diminished breath sounds in bilateral bases. No significant wheeze, rales or rhonchi. CARDIAC: Distant heart sounds. Regular S1, S2. ABDOMEN: Soft, nontender. Slightly distended. Soft. No rebound. No guarding. EXTREMITIES: No clubbing, cyanosis or edema. NEUROLOGIC: No focal deficits. ASSESSMENT AND PLAN: This is a 71-year-old female patient with underlying medical history of paroxysmal atrial fibrillation, hypertension, urinary incontinence, coronary arterial disease, diarrhea with intermittent constipation, anxiety, diastolic congestive heart failure (CHF), osteoporosis. The patient was admitted with possible sepsis with gastroenteritis. GI panel negative. IV fluids. Followup electrolytes. 2. Acute hypoxic respiratory failure with hypercapnia, possibly due to chronic obstructive pulmonary disease (COPD) exacerbation. Steroid initially increased. Currently taper steroids. No significant wheeze. Antibiotics, the patient is on Levaquin. Continue nebulizer treatments, Symbicort. 3. History of diastolic congestive heart failure (CHF). Continue Lasix. Continue spironolactone. Strict input and output. Potassium supplementation. 4. Hypokalemia. Supplement electrolytes. Continue to follow. 5. Lactic acidosis, resolved. Likely secondary to respiratory distress. 6. Leukocytosis secondary to steroids. Taper steroids. Followup cultures. 7. Gastroesophageal reflux disease (GERD). Continue Pepcid. 8. Deep vein thrombosis (DVT) prophylaxis. Lovenox subcutaneously. DISPOSITION PLANNING: Pending clinical improvement, physical therapy.
[2016-08-28] MEDS ORDERED: LevoFLOXacin 500 MG TABLET PO SCH (18:00)
[2016-08-28 22:00] VITALS: BP 127/58
[2016-08-29] MEDS: IPRATROPIUM 0.5MG/ALBUTEROL 2.5MG INH SOL UD 3ML (DUONEB)(J7620) NEB SCH ×2 (01:09→08:00)
[2016-08-29 06:00] VITALS: BP 110/53
[2016-08-29 06:58] LABS: BASO % 0.4 % (0.0-1.0); EOS # 0.1 K/mm3 (0.0-0.50); LARGE UNSTAINED CELL # 0.2 K/mm3 (0.0-0.4); LARGE UNSTAINED CELL % 1.7 % (0.0-4.0); LYMPH # 1.9 K/mm3 (1.5-4.5); LYMPH % 16.7 % (24.0-44.0); MEAN CORPUSCULAR HEMOGLOBIN 29.2 pg (27.0-33.0); MEAN CORPUSCULAR HGB CONC 32.2 g/dl (32.0-36.5); MEAN CORPUSCULAR VOLUME 90.7 fl (80.0-96.0); MONO % 8.7 % (0.0-5.0); NEUTROPHILS % 71.4 % (36.0-66.0); PLATELET COUNT, AUTOMATED 321 k/mm3 (150-450); RED CELL DISTRIBUTION WIDTH 13.2 % (11.5-14.5); WHITE BLOOD COUNT 11.2 K/mm3 (4.0-10.0)
[2016-08-29 07:21] LABS: ALBUMIN 2.6 GM/DL (3.2-5.2); ALBUMIN/GLOBULIN RATIO 0.76 (1.00-1.93); ALKALINE PHOSPHATASE 80 U/L (45-117); ALT/SGPT 21 U/L (12-78); ANION GAP 3 MEQ/L (8-16); AST/SGOT 10 U/L (15-37); BILIRUBIN,TOTAL 0.2 MG/DL (0.2-1.0); BLOOD UREA NITROGEN 10 MG/DL (7-18); CARBON DIOXIDE LEVEL 40 MEQ/L (21-32); CHLORIDE LEVEL 99 MEQ/L (98-107); GLOMERULAR FILTRATION RATE > 60.0 (>39); GLUCOSE, FASTING 87 MG/DL (83-110); MAGNESIUM LEVEL 2.1 MG/DL (1.8-2.4); POTASSIUM SERUM 3.5 MEQ/L (3.5-5.1); SODIUM LEVEL 142 MEQ/L (136-145)
[2016-08-29] MEDS: HumaLOG INSULIN (NovoLOG) PER UNIT SC SCH (07:30)
--- NOTE | 2016-08-29 07:50 | DS.PDOC ---
Discharge Summary General Date of Admission Aug 26, 2016 at 15:15 Date of Discharge 08/29/2016 Discharge Summary PRIMARY CARE PHYSICIAN: Dr. Felton ATTENDING AT TIME OF DISCHARGE: Dr. Laureano He DISCHARGE DIAGNOS(E)S: 1. Acute hypoxic respiratory failure with hypercapnia in the setting of COPD 2. Gastroenteritis with history of chronic intermittent constipation and diarrhea 3. History of diastolic congestive heart failure 4. Hypokalemia 5. Lactic acidosis 6. Leukocytosis 7. GERD HPI & HOSPITAL COURSE: Patient presented to the hospital with a history of 3 days of nausea and vomiting, and upon arrival she was also found to have acute hypoxic respiratory failure with hypercapnia. She was administered Levaquin empirically, and she was also started on steroids. A respiratory panel and GI panel were both ordered , and both of them were negative for any infectious etiology, therefore the antibiotics were discontinued. She was tapered down on her steroids to 20 mg by mouth daily, and it is probably appropriate that she can return back to her usual home dose as her respiratory symptoms have significantly improved, and she is back on her usual home dose of oxygen (2 L nasal cannula). Originally when she came in the hospital she was constipated, therefore she was treated with Colace and, and now in the past day or so she has converted over to more loose stools. Her nausea and vomiting has completely resolved however. She was found to be hypokalemic during her hospitalization, repletion has been ordered, and this is now resolved as well. She also had a leukocytosis and elevated CRP upon admission, both of which have been steadily improving. Upon speaking with the patient today, she is feeling significantly better, she just finished eating breakfast. She does not have any shortness of breath, wheezing, chest discomfort, nausea, vomiting, or abdominal pain or distention at this time. She appears to be stable for discharge at this time. PHYSICAL EXAMINATION ON DISCHARGE: GENERAL: Awake, alert, oriented 3. She is in no acute distress. CARDIOVASCULAR EXAMINATION: Heart sounds are distant, but appear to be regular rate and rhythm, with no rubs, gallops, or murmur. RESPIRATORY EXAMINATION: Somewhat diminished, no wheezes, rales, or rhonchi. ABDOMINAL EXAMINATION: Soft, nontender, nondistended. Bowel sounds present. EXTREMITIES: No clubbing or edema noted. 2+ pulses in the radial bilaterally. DISPOSITION: Home DISCHARGE INSTRUCTIONS: With follow-up with primary care provider Dr. Felton within 7-10 days. Diet is consistent carbohydrates. Activity as tolerated. If symptoms return, or if you experience worsening of your symptoms, please call your doctor or return to the emergency department. ITEMS THAT NEED OUTPATIENT FOLLOWUP: The patient was found to be hypokalemic during her hospitalization, this may be due to diarrhea, but recommend close follow-up with Dr. Felton to recheck a BMP. My preceptor for this patient encounter was physically present in the building during the encounter and was fully available. As needed, all aspects of the patient interview, examination, medical decision making process, and medical care plan development were reviewed and approved by the preceptor. Preceptor is aware and concurs with the plan as stated in the body of this note and will attest to such by his/her cosignature. Vital Signs/I&Os Vital Signs Date Time Temp Pulse Resp B/P (MAP) Pulse Ox O2 Delivery O2 Flow Rate FiO2 08/29/16 06:15 16 08/29/16 06:00 96.9 67 110/53 (72) 99 Nasal Cannula 2.0 08/27/16 09:00 33 I&O- Last 24 Hours up to 6 AM 08/29/16 06:00 Intake Total 2190 ml Output Total 2000 ml Balance 190 ml Laboratory Data Labs 24H Laboratory Tests 2 08/28/16 12:11: Bedside Glucose (Misc Panel) 152H 08/28/16 12:19: Anion Gap 3L, Glomerular Filtration Rate > 60.0, Blood Urea Nitrogen 16, Creatinine 0.62, Sodium Level 139, Potassium Level 3.4L, Chloride Level 94L, Carbon Dioxide Level 42H, Calcium Level 8.7L 08/28/16 16:51: Bedside Glucose (Misc Panel) 216H 08/29/16 06:42: Anion Gap 3L, Glomerular Filtration Rate > 60.0, Blood Urea Nitrogen 10, Creatinine 0.50L, Sodium Level 142, Potassium Level 3.5, Chloride Level 99, Carbon Dioxide Level 40H, Calcium Level 8.0L, White Blood Count 11.2H, Red Blood Count 4.31, Hemoglobin 12.6, Hematocrit 39.1, Mean Corpuscular Volume 90.7 , Mean Corpuscular Hemoglobin 29.2, Mean Corpuscular Hemoglobin Concent 32.2, Red Cell Distribution Width 13.2, Platelet Count 321, Neutrophils (%) (Auto) 71.4H, Lymphocytes (%) (Auto) 16.7L, Monocytes (%) (Auto) 8.7H, Eosinophils (%) (Auto) 1.0, Basophils (%) (Auto) 0.4, Neutrophils # (Auto) 8.0H, Lymphocytes # ( Auto) 1.9, Monocytes # (Auto) 1.0H, Eosinophils # (Auto) 0.1, Basophils # (Auto ) 0.0, Large Unclassified Cells % 1.7, Large Unclassified Cells # 0.2, Aspartate Amino Transf (AST/SGOT) 10L, Alanine Aminotransferase (ALT/SGPT) 21, Alkaline Phosphatase 80, Total Bilirubin 0.2, Total Protein 6.0L, Albumin 2.6L, Magnesium Level 2.1, Albumin/Globulin Ratio 0.76L CBC/BMP Laboratory Tests 08/28/16 12:19 Calcium Level 8.7 L 08/29/16 06:42 Calcium Level 8.0 L, Red Blood Count 4.31, Mean Corpuscular Volume 90.7, Mean Corpuscular Hemoglobin 29.2, Mean Corpuscular Hemoglobin Concent 32.2, Red Cell Distribution Width 13.2, Neutrophils (%) (Auto) 71.4 H, Lymphocytes (%) (Auto) 16.7 L, Monocytes (%) (Auto) 8.7 H, Eosinophils (%) (Auto) 1.0, Basophils (%) ( Auto) 0.4, Neutrophils # (Auto) 8.0 H, Lymphocytes # (Auto) 1.9, Monocytes # ( Auto) 1.0 H, Eosinophils # (Auto) 0.1, Basophils # (Auto) 0.0, Aspartate Amino Transf (AST/SGOT) 10 L, Alanine Aminotransferase (ALT/SGPT) 21, Alkaline Phosphatase 80, Total Bilirubin 0.2, Total Protein 6.0 L, Albumin 2.6 L FSBS Laboratory Tests Test 08/28/16 12:11 08/28/16 16:51 Range/Units Bedside Glucose (Misc Panel) 152 216 83-110 MG/DL Microbiology Microbiology 08/26/16 Blood Culture - Preliminary, Resulted No Growth after 48 hours. All Specime... 08/26/16 Blood Culture - Preliminary, Resulted No Growth after 48 hours. All Specime... 08/28/16 Gastrointestinal Tract Panel (PCR) - Final, Complete 08/27/16 Respiratory Virus Panel (PCR) (CHRISTOPHE) - Final, Complete Discharge Medications Scheduled (Incruse Ellipta) 62.5 Mcg/Inh Inh, 62.5 MCG INH DAILY, (Reported) Albuterol/Ipratropium (Combivent Respimat 20-100 Mcg/Act) 1 Aer Aer, 1 PUFF INH QID, (Reported) Albuterol/Ipratropium (Ipratropium [place]/Albut 0.5-2.5 (3) mg/3Ml) 1 Con Con, 1 CON INH Q4H, (Reported) Aspirin (Aspirin 81) 81 Mg Tab, 81 MG PO DAILY, (Reported) Budesonide/Formoterol (Symbicort 160-4.5 Mcg/Act) 60 Puff/Inhaler Aers, 1 PUFF INH DAILY, (Reported) Docusate Sodium (Colace) 100 Mg Cap, 100 MG PO DAILY, (Reported) Famotidine (Pepcid) 20 Mg Tab, 20 MG PO DAILY, (Reported) Furosemide (Furosemide) 40 Mg Tab, 40 MG PO BID, (Reported) Guaifenesin (Guaifenesin ER) 600 Mg Tab, 600 MG PO Q12H, (Reported) Loratadine (Claritin) 10 Mg Cap, 10 MG PO DAILY, (Reported) Magnesium Oxide (Magnesium Oxide 400) 400 Mg Tab, 400 MG PO DAILY, (Reported) Prednisone (Prednisone) 5 Mg Tab, 5 MG PO DAILY, (Reported) Spironolactone (Spironolactone) 25 Mg Tab, 25 MG PO DAILY, (Reported) TAKE WHEN WEIGHT IS OVER 137 LBS Tolterodine Tartrate (Tolterodine Tartrate ER) 2 Mg Cap, 2 MG PO DAILY, ( Reported) Scheduled PRN Acetaminophen (Tylenol Extra Strength) 500 Mg Tab, 1,000 MG PO Q4H PRN for PAIN, (Reported) Albuterol Sulfate (Ventolin Hfa) 200 Puff/8 Gm Aers, 2 PUFF INH Q4H PRN for SHORTNESS OF BREATH, (Reported) Alprazolam (Alprazolam) 0.25 Mg Tab, 0.25 MG PO Q6H PRN for ANXIETY, (Reported) Ibuprofen (Ibuprofen) 400 Mg Tab, 400 MG PO TID PRN for PAIN, (Reported) Tramadol HCl (Tramadol HCl) 50 Mg Tab, 50 MG PO Q6H PRN for PAIN, (Reported) Allergies Coded Allergies: Azithromycin (Verified Allergy, Severe, TONGUE SWELL,DIFF BREATHING, HIVES , 06/04/12) GME ATTESTATION GME ATTESTATION My preceptor for this patient encounter was physically present in the building during the encounter and was fully available. As needed, all aspects of the patient interview, examination, medical decision making process, and medical care plan development were reviewed and approved by the preceptor. Preceptor is aware and concurs with the plan as stated in the body of this note and will attest to such by his/her cosignature. ATTENDING NOTE I have both independently examined this patient as well as reviewed the note. I have discussed in detail with the resident the findings and plan of treatment as documented in the residents note. I will continue to follow the patient and offer further guidance to the patients care as necessary during this hospital stay. BROCK Cannon MD, DO Aug 29, 2016 07:50 JASON VERA MD Aug 30, 2016 10:37
[2016-08-29] MEDS: DOCUSATE SODIUM 100 MG CAP PO SCH (09:00)
[2016-08-29] MEDS ORDERED: FUROSEMIDE 40 MG TAB PO SCH (09:00)
[2016-08-29] MEDS: SENOKOT S TAB PO SCH (09:00)
[2016-08-29] MEDS ORDERED: predniSONE 20 MG TAB PO SCH (09:00)
[2016-08-29] MEDS: FAMOTIDINE 20 MG TAB PO SCH (09:24)
[2016-08-29] MEDS: guaiFENesin ER 600 MG TAB PO SCH (09:24)
[2016-08-29] MEDS: ENOXAPARIN 40 MG/0.4 ML SYRINGE (J1650) SC SCH (09:24)
[2016-08-29] MEDS: TOLTERODINE TARTRATE 2 MG LA CAP (DETROL LA) PO SCH (09:24)
[2016-08-29] MEDS: SPIRONOLACTONE 25 MG TAB PO SCH (09:25)
[2016-08-29] MEDS: LORATADINE 10 MG TAB PO SCH (09:25)
[2016-08-29] MEDS: ASPIRIN 81 MG ENTERIC TAB PO SCH (09:25)
[2016-08-29] MEDS: POTASSIUM CHLORIDE 10 MEQ SR TABLET PO SCH (09:25)
[2016-08-29] MEDS: MAGNESIUM OXIDE 400 MG TAB (MAG-OX) PO SCH (09:25)
== END 2016-08-29 10:35 | disposition home or self-care (01) | DRG 189 ==
LOC: M ED 11:43 → M ED INP 15:15 → M MS5PR 17:21
PROVIDERS: ADMIT Hospitalist; ATTEND Hospitalist
DX: J96.01 Acute respiratory failure with hypoxia (principal); I50.32 Chronic diastolic (congestive) heart failure; J44.1 Chronic obstructive pulmonary disease with (acute) exacerbation; E87.2 Acidosis; J96.02 Acute respiratory failure with hypercapnia; E87.6 Hypokalemia; K21.9 Gastro-esophageal reflux disease without esophagitis; K52.9 Noninfective gastroenteritis and colitis, unspecified; Z99.81 Dependence on supplemental oxygen; Z79.82 Long term (current) use of aspirin; Z79.52 Long term (current) use of systemic steroids; Z79.899 Other long term (current) drug therapy; Z88.1 Allergy status to other antibiotic agents; Z90.710 Acquired absence of both cervix and uterus; Z98.51 Tubal ligation status; Z82.49 Family history of ischemic heart disease and other diseases of the circulatory system; Z80.9 Family history of malignant neoplasm, unspecified; Z87.891 Personal history of nicotine dependence; M81.0 Age-related osteoporosis without current pathological fracture; I25.10 Atherosclerotic heart disease of native coronary artery without angina pectoris; I11.0 Hypertensive heart disease with heart failure; I48.0 Paroxysmal atrial fibrillation

== ENCOUNTER → 2017-01-26 | Outpatient (CLI) | payer MEDICARE, MEDICAID ==
[~2017-01-26] MED LIST changes: +ALBU17IN INH; +ASPI1TAB PO; +BLIN0.25 OP; +CLAR10CA3 PO; +COLA100C5 PO; +INCR1INH IN; +INCR1INH INH; +IPRASOL4 INH; +LORA10CA PO; +PRED5TA PO; +SPIR25TA2 PO; +TOLT1CAP4 PO; +TRAM50TA2 PO; +TYLE500T78 PO
--- NOTE | 2017-01-26 12:15 | REPMRS ---
Patient History The patient states she has not had a clinical breast exam in over a year. Patient is postmenopausal. Family history of breast cancer in mother at age 50 or over. Digital Woman Screen Mammo: January 26, 2017 - Exam #: [id number] Bilateral CC and MLO view(s) were taken. Technologist: Aniya Paniagua, Technologist Prior study comparison: November 23, 2015, digital woman screen mammo performed at [facility]. November 24, 2014, digital woman screen mammo performed at [facility]. October 18, 2013, digital woman screen mammo performed at [facility]. FINDINGS: The breast tissue is almost entirely fat. There has been no change in the appearance of the mammogram from the prior studies. There is no interval development of dominant mass, architectural distortion, or clustered microcalcification typical of malignancy. ASSESSMENT: BI-RADS/ACR category 1 mammogram. Negative. Recommendation Routine screening mammogram of both breasts in 1 year (for women over age 40). This mammogram was interpreted with the aid of an FDA-approved computer-aided dectection system. Electronically Signed By: Vincent Bradford MD 01/26/17 [id number]
== END ==
LOC: M WHC 11:37
PROVIDERS: ATTEND Family Medicine
DX: Z12.31 Encounter for screening mammogram for malignant neoplasm of breast (principal)

== ENCOUNTER 2017-08-17 19:22 | Inpatient (IN) | payer MEDICARE, MEDICAID ==
[2017-08-17] MEDS: SYMBICORT 160/4.5MCG INHALER 6GM INH (02:44)
[2017-08-17] MEDS: ACETAMINOPHEN 325 MG TAB PO (19:45)
[2017-08-17] MEDS: ASPIRIN 81 MG CHEW TABLET PO (19:45)
[2017-08-17] MEDS: PIPERACILLIN/TAZOBACTAM SOD 3.375 GM in D5W MINI-BAG PLUS 50 ML IV (19:45)
[2017-08-17 19:54] LABS: BASO % 0.3 % (0.0-1.0); EOS # 0.1 10^3/uL (0.0-0.50); EOS % 0.6 % (0.0-3.0); HEMATOCRIT 43.5 % (36.0-47.0); HEMOGLOBIN 13.7 g/dl (12.0-15.5); IMMATURE GRANULOCYTE % 0.3 % (0-3.0); LYMPH # 1.9 10^3/uL (1.5-4.5); LYMPH % 15.3 % (24.0-44.0); MEAN CORPUSCULAR HGB CONC 31.5 g/dl (32.0-36.5); MONO % 8.4 % (0.0-5.0); NEUTROPHILS # 9.3 10^3/uL (1.8-7.7); NEUTROPHILS % 75.1 % (36.0-66.0); PLATELET COUNT, AUTOMATED 257 10^3/uL (150-450); RED BLOOD COUNT 4.73 10^6/uL (4.00-5.40); RED CELL DISTRIBUTION WIDTH 13.2 % (11.5-14.5); WHITE BLOOD COUNT 12.4 10^3/uL (4.0-10.0)
[2017-08-17 19:55] LABS: VENOUS BASE EXCESS 12.2 (-2.0-2.0); VENOUS HCO3 41.3 MEQ/L (23.0-27.0); VENOUS O2 SATURATION 98.8 % (60.0-80.0); VENOUS PARTIAL PRESSURE O2 125.6 mmHg (30.0-50.0); VENOUS PH 7.359 UNITS (7.330-7.430); VENOUS STANDARD HCO3 36.1 MEQ/L; VENOUS TOTAL CO2 43.6 MEQ/L (24.0-28.0)
[2017-08-17 20:08] LABS: INR 0.94; PROTHROMBIN TIME 12.7 SECONDS (12.4-14.5)
[2017-08-17 20:23] LABS: ALBUMIN 3.2 GM/DL (3.2-5.2); ALBUMIN/GLOBULIN RATIO 0.82 (1.00-1.93); ALKALINE PHOSPHATASE 97 U/L (45-117); ALT/SGPT 16 U/L (12-78); ANION GAP 8 MEQ/L (8-16); AST/SGOT 16 U/L (7-37); BILIRUBIN,DIRECT < 0.1 MG/DL (0.0-0.2); BILIRUBIN,TOTAL 0.3 MG/DL (0.2-1.0); BLOOD UREA NITROGEN 14 MG/DL (7-18); CALCIUM LEVEL 8.3 MG/DL (8.8-10.2); CARBON DIOXIDE LEVEL 39 MEQ/L (21-32); CHLORIDE LEVEL 95 MEQ/L (98-107); CREATININE FOR GFR 0.75 MG/DL (0.55-1.30); GLOMERULAR FILTRATION RATE > 60.0 (>39); GLUCOSE, FASTING 128 MG/DL (70-100); NT-PRO BNP 51 PG/ML (<125); POTASSIUM SERUM 3.8 MEQ/L (3.5-5.1); SODIUM LEVEL 142 MEQ/L (136-145); TOTAL PROTEIN 7.1 GM/DL (6.4-8.2)
[2017-08-18] MEDS ORDERED: traMADol 50 MG TAB PO (01:15)
[2017-08-18] MEDS ORDERED: POLYVINYL ALCOHOL OPHTH SOLN 15 ML(LIQUITEARS) OU (01:15)
[2017-08-18] MEDS ORDERED: DEXTROSE 50% 50 ML SYRINGE IV (01:30)
[2017-08-18] MEDS ORDERED: GLUCOSE 4 GM CHEW TABLET PO (01:30)
[2017-08-18] MEDS ORDERED: GLUCAGON FOR INJ 1 MG VIAL (J1610) SC (01:30)
[2017-08-18] MEDS ORDERED: IPRATROPIUM 0.5MG/ALBUTEROL 2.5MG INH SOL UD 3ML (DUONEB)(J7620) NEB (02:00)
[2017-08-18] MEDS: methylPREDNISolone INJ 125 MG/2 ML VIAL (J2930) IV ×3 (02:24→23:40)
[2017-08-18] MEDS: guaiFENesin ER 600 MG TAB PO ×3 (02:24→20:09)
[2017-08-18] MEDS: cefTRIAXone SOD 2 GM in D5W MINI-BAG PLUS 50 ML IV (02:24)
[2017-08-18] MEDS: IPRATROPIUM 0.5MG/ALBUTEROL 2.5MG INH SOL UD 3ML (DUONEB)(J7620) NEB ×5 (02:53→20:00)
[2017-08-18] MEDS ORDERED: MORPHINE 4 MG/ML 1ML VIAL/SYRINGE (J2270) IV (03:15)
[2017-08-18] MEDS: SYMBICORT 160/4.5MCG INHALER 6GM INH ×2 (07:06→21:57)
[2017-08-18 07:27] LABS: BASO % 0.1 % (0.0-1.0); HEMATOCRIT 44.9 % (36.0-47.0); HEMOGLOBIN 14.2 g/dl (12.0-15.5); IMMATURE GRANULOCYTE % 0.5 % (0-3.0); LYMPH # 0.9 10^3/uL (1.5-4.5); LYMPH % 8.5 % (24.0-44.0); MEAN CORPUSCULAR HEMOGLOBIN 29.3 pg (27.0-33.0); MEAN CORPUSCULAR HGB CONC 31.6 g/dl (32.0-36.5); MEAN CORPUSCULAR VOLUME 92.6 fl (80.0-96.0); MONO # 0.2 10^3/uL (0.0-0.8); MONO % 1.9 % (0.0-5.0); NEUTROPHILS # 9.7 10^3/uL (1.8-7.7); PLATELET COUNT, AUTOMATED 261 10^3/uL (150-450); RED BLOOD COUNT 4.85 10^6/uL (4.00-5.40); RED CELL DISTRIBUTION WIDTH 13.2 % (11.5-14.5); WHITE BLOOD COUNT 10.9 10^3/uL (4.0-10.0)
[2017-08-18 07:29] LABS: NT-PRO BNP 73 PG/ML (<125)
[2017-08-18] MEDS: HumaLOG INSULIN (NovoLOG) PER UNIT SC ×3 (08:18→17:45)
[2017-08-18] MEDS: LORATADINE 10 MG TAB PO (08:19)
[2017-08-18] MEDS: FUROSEMIDE 40 MG TAB PO ×2 (08:19→17:45)
[2017-08-18] MEDS: SPIRONOLACTONE 25 MG TAB PO (08:19)
[2017-08-18] MEDS: FAMOTIDINE 20 MG TAB PO (08:19)
[2017-08-18] MEDS: TOLTERODINE TARTRATE 2 MG LA CAP (DETROL LA) PO (08:19)
[2017-08-18] MEDS: MAGNESIUM OXIDE 400 MG TAB (MAG-OX) PO (08:19)
[2017-08-18] MEDS: ASPIRIN 81 MG ENTERIC TAB PO (08:19)
[2017-08-18] MEDS: methylPREDNISolone INJ 40 MG/1 ML VIAL (J2920) IV (08:19)
[2017-08-18] MEDS: DOCUSATE SODIUM 100 MG CAP PO (08:20)
[2017-08-18] MEDS: ACETAMINOPHEN 500 MG TAB PO ×2 (08:20→19:03)
[2017-08-18 11:47] LABS: BEDSIDE GLUCOSE 204 MG/DL (83-110)
[2017-08-18] MEDS: DOXYCYCLINE HYCLATE 100 MG in D5W MINI-BAG PLUS 100 ML IV ×2 (12:48→23:40)
[2017-08-18 16:03] LABS: ALBUMIN 3.1 GM/DL (3.2-5.2); ALBUMIN/GLOBULIN RATIO 0.66 (1.00-1.93); ALKALINE PHOSPHATASE 97 U/L (45-117); ALT/SGPT 16 U/L (12-78); ANION GAP 12 MEQ/L (8-16); AST/SGOT 23 U/L (7-37); BILIRUBIN,TOTAL 0.1 MG/DL (0.2-1.0); BLOOD UREA NITROGEN 17 MG/DL (7-18); CALCIUM LEVEL 8.3 MG/DL (8.8-10.2); CARBON DIOXIDE LEVEL 30 MEQ/L (21-32); CHLORIDE LEVEL 99 MEQ/L (98-107); CREATININE FOR GFR 0.63 MG/DL (0.55-1.30); GLOMERULAR FILTRATION RATE > 60.0 (>39); GLUCOSE, FASTING 132 MG/DL (70-100); MAGNESIUM LEVEL 2.3 MG/DL (1.8-2.4); POTASSIUM SERUM 4.9 MEQ/L (3.5-5.1); SODIUM LEVEL 141 MEQ/L (136-145); TOTAL PROTEIN 7.8 GM/DL (6.4-8.2)
[2017-08-18 17:35] LABS: BEDSIDE GLUCOSE 110 MG/DL (83-110)
[2017-08-18] MEDS: FIORICET TAB PO (20:09)
[2017-08-18 20:41] LABS: BEDSIDE GLUCOSE 234 MG/DL (83-110)
[2017-08-18] MEDS ORDERED: RAMELTEON 8 MG TAB (ROZEREM) PO (21:00)
[2017-08-19] MEDS: IPRATROPIUM 0.5MG/ALBUTEROL 2.5MG INH SOL UD 3ML (DUONEB)(J7620) NEB ×4 (02:00→20:00)
[2017-08-19] MEDS: cefTRIAXone SOD 1 GM in D5W MINI-BAG PLUS 50 ML IV (05:23)
[2017-08-19] MEDS: methylPREDNISolone INJ 125 MG/2 ML VIAL (J2930) IV ×3 (05:23→21:23)
[2017-08-19 07:21] LABS: HEMATOCRIT 41.9 % (36.0-47.0); HEMOGLOBIN 12.9 g/dl (12.0-15.5); MEAN CORPUSCULAR HEMOGLOBIN 28.7 pg (27.0-33.0); MEAN CORPUSCULAR HGB CONC 30.8 g/dl (32.0-36.5); MEAN CORPUSCULAR VOLUME 93.3 fl (80.0-96.0); PLATELET COUNT, AUTOMATED 251 10^3/uL (150-450); RED BLOOD COUNT 4.49 10^6/uL (4.00-5.40); WHITE BLOOD COUNT 13.8 10^3/uL (4.0-10.0)
[2017-08-19 07:46] LABS: ANION GAP 2 MEQ/L (8-16); BLOOD UREA NITROGEN 22 MG/DL (7-18); CALCIUM LEVEL 8.3 MG/DL (8.8-10.2); CARBON DIOXIDE LEVEL 42 MEQ/L (21-32); CHLORIDE LEVEL 96 MEQ/L (98-107); CREATININE FOR GFR 0.56 MG/DL (0.55-1.30); GLOMERULAR FILTRATION RATE > 60.0 (>39); GLUCOSE, FASTING 185 MG/DL (70-100); POTASSIUM SERUM 4.4 MEQ/L (3.5-5.1); SODIUM LEVEL 140 MEQ/L (136-145)
[2017-08-19] MEDS: DOCUSATE SODIUM 100 MG CAP PO (08:08)
[2017-08-19] MEDS: HumaLOG INSULIN (NovoLOG) PER UNIT SC ×3 (08:08→16:35)
[2017-08-19] MEDS: FAMOTIDINE 20 MG TAB PO (08:08)
[2017-08-19] MEDS: SPIRONOLACTONE 25 MG TAB PO (08:09)
[2017-08-19] MEDS: LORATADINE 10 MG TAB PO (08:09)
[2017-08-19] MEDS: TOLTERODINE TARTRATE 2 MG LA CAP (DETROL LA) PO (08:09)
[2017-08-19] MEDS: FUROSEMIDE 40 MG TAB PO ×2 (08:09→16:46)
[2017-08-19] MEDS: ASPIRIN 81 MG ENTERIC TAB PO (08:09)
[2017-08-19] MEDS: MAGNESIUM OXIDE 400 MG TAB (MAG-OX) PO (08:09)
[2017-08-19] MEDS: guaiFENesin ER 600 MG TAB PO ×2 (08:09→21:23)
[2017-08-19] MEDS: SYMBICORT 160/4.5MCG INHALER 6GM INH ×2 (08:42→21:00)
[2017-08-19 11:28] LABS: BEDSIDE GLUCOSE 238 MG/DL (83-110)
[2017-08-19] MEDS: DOXYCYCLINE HYCLATE 100 MG in D5W MINI-BAG PLUS 100 ML IV (11:37)
[2017-08-19] MEDS ORDERED: ISOVUE-370 76% 100ML VIAL (Q9967) As Ordered (12:47)
[2017-08-19 13:53] LABS: ABG BASE EXCESS 14.3 (-2.0-2.0); ABG HCO3 44.2 MEQ/L (22.0-26.0); ABG O2 SATURATION 95.9 % (95.0-99.0); ABG PARTIAL PRESSURE O2 84.3 mmHg (75.0-100.0); ABG STANDARD HCO3 38.1 MEQ/L (22.0-26.0); ABG TOTAL CO2 46.8 MEQ/L (23.0-31.0); ABG pH (ARTERIAL) 7.334 UNITS (7.350-7.450)
[2017-08-19 16:35] LABS: BEDSIDE GLUCOSE 127 MG/DL (83-110)
[2017-08-19] MEDS ORDERED: LevoFLOXacin 500 MG TABLET PO (18:00)
[2017-08-19 20:18] LABS: BEDSIDE GLUCOSE 260 MG/DL (83-110)
[2017-08-19] MEDS: ALPRAZolam 0.25 MG TAB PO (21:50)
[2017-08-20] MEDS: DOXYCYCLINE HYCLATE 100 MG in D5W MINI-BAG PLUS 100 ML IV ×2 (00:57→12:33)
[2017-08-20] MEDS: IPRATROPIUM 0.5MG/ALBUTEROL 2.5MG INH SOL UD 3ML (DUONEB)(J7620) NEB ×4 (02:00→21:34)
[2017-08-20] MEDS: methylPREDNISolone INJ 125 MG/2 ML VIAL (J2930) IV (05:23)
[2017-08-20] MEDS: cefTRIAXone SOD 1 GM in D5W MINI-BAG PLUS 50 ML IV (05:23)
[2017-08-20 07:13] LABS: BASO % 0.2 % (0.0-1.0); HEMATOCRIT 39.9 % (36.0-47.0); HEMOGLOBIN 12.5 g/dl (12.0-15.5); IMMATURE GRANULOCYTE % 0.4 % (0-3.0); LYMPH # 1.3 10^3/uL (1.5-4.5); LYMPH % 10.3 % (24.0-44.0); MEAN CORPUSCULAR HEMOGLOBIN 28.8 pg (27.0-33.0); MEAN CORPUSCULAR HGB CONC 31.3 g/dl (32.0-36.5); MEAN CORPUSCULAR VOLUME 91.9 fl (80.0-96.0); MONO # 0.7 10^3/uL (0.0-0.8); MONO % 6.1 % (0.0-5.0); PLATELET COUNT, AUTOMATED 214 10^3/uL (150-450); RED BLOOD COUNT 4.34 10^6/uL (4.00-5.40); RED CELL DISTRIBUTION WIDTH 13.1 % (11.5-14.5); WHITE BLOOD COUNT 12.1 10^3/uL (4.0-10.0)
[2017-08-20 07:34] LABS: ALBUMIN 2.6 GM/DL (3.2-5.2); ALBUMIN/GLOBULIN RATIO 0.65 (1.00-1.93); ALKALINE PHOSPHATASE 72 U/L (45-117); ALT/SGPT 18 U/L (12-78); ANION GAP 4 MEQ/L (8-16); AST/SGOT 22 U/L (7-37); BILIRUBIN,TOTAL 0.2 MG/DL (0.2-1.0); BLOOD UREA NITROGEN 20 MG/DL (7-18); CALCIUM LEVEL 7.7 MG/DL (8.8-10.2); CARBON DIOXIDE LEVEL 43 MEQ/L (21-32); CHLORIDE LEVEL 94 MEQ/L (98-107); CREATININE FOR GFR 0.47 MG/DL (0.55-1.30); GLOMERULAR FILTRATION RATE > 60.0 (>39); GLUCOSE, FASTING 180 MG/DL (70-100); MAGNESIUM LEVEL 2.1 MG/DL (1.8-2.4); SODIUM LEVEL 141 MEQ/L (136-145); TOTAL PROTEIN 6.6 GM/DL (6.4-8.2)
[2017-08-20] MEDS: SPIRONOLACTONE 25 MG TAB PO (08:16)
[2017-08-20] MEDS: LORATADINE 10 MG TAB PO (08:16)
[2017-08-20] MEDS: FUROSEMIDE 40 MG TAB PO ×2 (08:16→16:59)
[2017-08-20] MEDS: FAMOTIDINE 20 MG TAB PO (08:16)
[2017-08-20] MEDS: MAGNESIUM OXIDE 400 MG TAB (MAG-OX) PO (08:17)
[2017-08-20] MEDS: ASPIRIN 81 MG ENTERIC TAB PO (08:17)
[2017-08-20] MEDS: TOLTERODINE TARTRATE 2 MG LA CAP (DETROL LA) PO (08:17)
[2017-08-20] MEDS: HumaLOG INSULIN (NovoLOG) PER UNIT SC ×3 (08:17→16:43)
[2017-08-20] MEDS: guaiFENesin ER 600 MG TAB PO ×2 (08:17→21:07)
[2017-08-20] MEDS: DOCUSATE SODIUM 100 MG CAP PO (08:18)
[2017-08-20] MEDS: SYMBICORT 160/4.5MCG INHALER 6GM INH ×2 (09:04→21:34)
[2017-08-20 11:18] LABS: BEDSIDE GLUCOSE 216 MG/DL (83-110)
[2017-08-20] MEDS: ACETYLCYSTEINE 20% 4 ML VIAL (200MG/ML) INH ×2 (13:36→21:34)
[2017-08-20] MEDS: CEFDINIR 300 MG CAP (OMNICEF) PO ×2 (14:49→21:06)
[2017-08-20] MEDS: DOXYCYCLINE HYCLATE 100 MG TAB PO ×2 (14:49→21:06)
[2017-08-20] MEDS: methylPREDNISolone INJ 125 MG/2 ML VIAL (J2930) IM ×2 (14:50→21:06)
[2017-08-20 16:38] LABS: BEDSIDE GLUCOSE 104 MG/DL (83-110)
[2017-08-20 20:16] LABS: BEDSIDE GLUCOSE 244 MG/DL (83-110)
[2017-08-20] MEDS: ALPRAZolam 0.25 MG TAB PO (21:06)
[2017-08-21] MEDS: IPRATROPIUM 0.5MG/ALBUTEROL 2.5MG INH SOL UD 3ML (DUONEB)(J7620) NEB ×4 (02:00→22:51)
[2017-08-21] MEDS: methylPREDNISolone INJ 125 MG/2 ML VIAL (J2930) IM ×3 (05:36→22:05)
[2017-08-21 07:01] LABS: BASO % 0.1 % (0.0-1.0); HEMOGLOBIN 12.4 g/dl (12.0-15.5); IMMATURE GRANULOCYTE % 0.7 % (0-3.0); LYMPH # 1.1 10^3/uL (1.5-4.5); LYMPH % 10.5 % (24.0-44.0); MEAN CORPUSCULAR HEMOGLOBIN 28.6 pg (27.0-33.0); MEAN CORPUSCULAR VOLUME 92.2 fl (80.0-96.0); MONO # 0.5 10^3/uL (0.0-0.8); MONO % 5.2 % (0.0-5.0); NEUTROPHILS # 8.3 10^3/uL (1.8-7.7); NEUTROPHILS % 83.5 % (36.0-66.0); PLATELET COUNT, AUTOMATED 235 10^3/uL (150-450); RED BLOOD COUNT 4.34 10^6/uL (4.00-5.40)
[2017-08-21 07:33] LABS: ALBUMIN 2.9 GM/DL (3.2-5.2); ALBUMIN/GLOBULIN RATIO 0.78 (1.00-1.93); ALKALINE PHOSPHATASE 70 U/L (45-117); ALT/SGPT 28 U/L (12-78); AST/SGOT 21 U/L (7-37); BILIRUBIN,TOTAL 0.3 MG/DL (0.2-1.0); BLOOD UREA NITROGEN 20 MG/DL (7-18); CALCIUM LEVEL 8.2 MG/DL (8.8-10.2); CHLORIDE LEVEL 94 MEQ/L (98-107); CREATININE FOR GFR 0.52 MG/DL (0.55-1.30); GLOMERULAR FILTRATION RATE > 60.0 (>39); GLUCOSE, FASTING 163 MG/DL (70-100); MAGNESIUM LEVEL 2.2 MG/DL (1.8-2.4); POTASSIUM SERUM 3.7 MEQ/L (3.5-5.1); SODIUM LEVEL 141 MEQ/L (136-145); TOTAL PROTEIN 6.6 GM/DL (6.4-8.2)
[2017-08-21 07:36] LABS: ANION GAP 4 MEQ/L (8-16); CARBON DIOXIDE LEVEL 43 MEQ/L (21-32)
[2017-08-21] MEDS: ACETYLCYSTEINE 20% 4 ML VIAL (200MG/ML) INH ×2 (08:00→21:35)
[2017-08-21] MEDS: FUROSEMIDE 40 MG TAB PO ×2 (08:43→17:21)
[2017-08-21] MEDS: MAGNESIUM OXIDE 400 MG TAB (MAG-OX) PO (08:43)
[2017-08-21] MEDS: DOCUSATE SODIUM 100 MG CAP PO (08:43)
[2017-08-21] MEDS: SPIRONOLACTONE 25 MG TAB PO (08:43)
[2017-08-21] MEDS: guaiFENesin ER 600 MG TAB PO ×2 (08:44→22:04)
[2017-08-21] MEDS: ASPIRIN 81 MG ENTERIC TAB PO (08:44)
[2017-08-21] MEDS: FAMOTIDINE 20 MG TAB PO (08:44)
[2017-08-21] MEDS: LORATADINE 10 MG TAB PO (08:44)
[2017-08-21] MEDS: CEFDINIR 300 MG CAP (OMNICEF) PO ×2 (08:44→22:03)
[2017-08-21] MEDS: TOLTERODINE TARTRATE 2 MG LA CAP (DETROL LA) PO (08:44)
[2017-08-21] MEDS: DOXYCYCLINE HYCLATE 100 MG TAB PO ×2 (08:44→22:04)
[2017-08-21] MEDS: HumaLOG INSULIN (NovoLOG) PER UNIT SC ×3 (08:45→17:22)
[2017-08-21] MEDS: SYMBICORT 160/4.5MCG INHALER 6GM INH ×2 (09:00→21:00)
[2017-08-21 11:33] LABS: BEDSIDE GLUCOSE 257 MG/DL (83-110)
[2017-08-21] MEDS: ACETAMINOPHEN 500 MG TAB PO ×2 (14:35→22:04)
[2017-08-21 17:16] LABS: BEDSIDE GLUCOSE 117 MG/DL (83-110)
[2017-08-21 20:39] LABS: BEDSIDE GLUCOSE 144 MG/DL (83-110)
[2017-08-22] MEDS: IPRATROPIUM 0.5MG/ALBUTEROL 2.5MG INH SOL UD 3ML (DUONEB)(J7620) NEB ×4 (01:50→20:56)
[2017-08-22] MEDS: methylPREDNISolone INJ 125 MG/2 ML VIAL (J2930) IM ×3 (05:34→21:58)
[2017-08-22 07:03] LABS: BASO % 0.2 % (0.0-1.0); HEMATOCRIT 44.1 % (36.0-47.0); IMMATURE GRANULOCYTE % 0.7 % (0-3.0); LYMPH # 0.9 10^3/uL (1.5-4.5); LYMPH % 8.1 % (24.0-44.0); MEAN CORPUSCULAR HEMOGLOBIN 28.9 pg (27.0-33.0); MEAN CORPUSCULAR HGB CONC 31.7 g/dl (32.0-36.5); MEAN CORPUSCULAR VOLUME 91.1 fl (80.0-96.0); MONO # 0.6 10^3/uL (0.0-0.8); MONO % 5.6 % (0.0-5.0); NEUTROPHILS # 9.8 10^3/uL (1.8-7.7); NEUTROPHILS % 85.4 % (36.0-66.0); PLATELET COUNT, AUTOMATED 248 10^3/uL (150-450); RED BLOOD COUNT 4.84 10^6/uL (4.00-5.40); RED CELL DISTRIBUTION WIDTH 12.9 % (11.5-14.5); WHITE BLOOD COUNT 11.4 10^3/uL (4.0-10.0)
[2017-08-22] MEDS: SYMBICORT 160/4.5MCG INHALER 6GM INH ×2 (07:12→20:56)
[2017-08-22] MEDS: ACETYLCYSTEINE 20% 4 ML VIAL (200MG/ML) INH ×2 (07:12→20:56)
[2017-08-22 07:40] LABS: ALKALINE PHOSPHATASE 77 U/L (45-117); ALT/SGPT 27 U/L (12-78); AST/SGOT 14 U/L (7-37); BILIRUBIN,TOTAL 0.4 MG/DL (0.2-1.0); BLOOD UREA NITROGEN 25 MG/DL (7-18); CALCIUM LEVEL 8.6 MG/DL (8.8-10.2); CHLORIDE LEVEL 91 MEQ/L (98-107); CREATININE FOR GFR 0.53 MG/DL (0.55-1.30); GLUCOSE, FASTING 161 MG/DL (70-100); MAGNESIUM LEVEL 2.4 MG/DL (1.8-2.4); POTASSIUM SERUM 3.5 MEQ/L (3.5-5.1); SODIUM LEVEL 141 MEQ/L (136-145); TOTAL PROTEIN 7.4 GM/DL (6.4-8.2)
[2017-08-22 07:55] LABS: ANION GAP 6 MEQ/L (8-16); CARBON DIOXIDE LEVEL 44 MEQ/L (21-32)
[2017-08-22 08:09] LABS: ALBUMIN 3.2 GM/DL (3.2-5.2); ALBUMIN/GLOBULIN RATIO 0.76 (1.00-1.93)
[2017-08-22] MEDS: LORATADINE 10 MG TAB PO (08:28)
[2017-08-22] MEDS: FAMOTIDINE 20 MG TAB PO (08:28)
[2017-08-22] MEDS: FUROSEMIDE 40 MG TAB PO ×2 (08:28→17:13)
[2017-08-22] MEDS: ASPIRIN 81 MG ENTERIC TAB PO (08:28)
[2017-08-22] MEDS: TOLTERODINE TARTRATE 2 MG LA CAP (DETROL LA) PO (08:29)
[2017-08-22] MEDS: MAGNESIUM OXIDE 400 MG TAB (MAG-OX) PO (08:29)
[2017-08-22] MEDS: guaiFENesin ER 600 MG TAB PO ×2 (08:29→21:57)
[2017-08-22] MEDS: SPIRONOLACTONE 25 MG TAB PO (08:29)
[2017-08-22] MEDS: DOCUSATE SODIUM 100 MG CAP PO (08:29)
[2017-08-22] MEDS: HumaLOG INSULIN (NovoLOG) PER UNIT SC ×3 (08:30→17:14)
[2017-08-22] MEDS: DOXYCYCLINE HYCLATE 100 MG TAB PO ×2 (08:32→21:57)
[2017-08-22] MEDS: CEFDINIR 300 MG CAP (OMNICEF) PO ×2 (08:32→21:57)
[2017-08-22 12:21] LABS: BEDSIDE GLUCOSE 132 MG/DL (83-110)
[2017-08-22 17:05] LABS: BEDSIDE GLUCOSE 145 MG/DL (83-110)
[2017-08-22] MEDS: ACETAMINOPHEN 500 MG TAB PO (17:30)
[2017-08-22 20:28] LABS: BEDSIDE GLUCOSE 219 MG/DL (83-110)
[2017-08-23] MEDS: IPRATROPIUM 0.5MG/ALBUTEROL 2.5MG INH SOL UD 3ML (DUONEB)(J7620) NEB ×2 (00:30→09:28)
[2017-08-23] MEDS: methylPREDNISolone INJ 125 MG/2 ML VIAL (J2930) IM (05:45)
[2017-08-23 06:48] LABS: BASO % 0.1 % (0.0-1.0); HEMATOCRIT 43.5 % (36.0-47.0); HEMOGLOBIN 13.9 g/dl (12.0-15.5); IMMATURE GRANULOCYTE % 0.6 % (0-3.0); LYMPH # 0.8 10^3/uL (1.5-4.5); LYMPH % 7.1 % (24.0-44.0); MEAN CORPUSCULAR HEMOGLOBIN 28.8 pg (27.0-33.0); MEAN CORPUSCULAR VOLUME 90.2 fl (80.0-96.0); MONO # 0.6 10^3/uL (0.0-0.8); MONO % 5.7 % (0.0-5.0); NEUTROPHILS # 9.3 10^3/uL (1.8-7.7); NEUTROPHILS % 86.5 % (36.0-66.0); PLATELET COUNT, AUTOMATED 267 10^3/uL (150-450); RED BLOOD COUNT 4.82 10^6/uL (4.00-5.40); RED CELL DISTRIBUTION WIDTH 12.9 % (11.5-14.5); WHITE BLOOD COUNT 10.8 10^3/uL (4.0-10.0)
[2017-08-23 07:06] LABS: ALBUMIN/GLOBULIN RATIO 0.75 (1.00-1.93); ALKALINE PHOSPHATASE 79 U/L (45-117); ALT/SGPT 27 U/L (12-78); AST/SGOT 15 U/L (7-37); BILIRUBIN,TOTAL 0.4 MG/DL (0.2-1.0); BLOOD UREA NITROGEN 23 MG/DL (7-18); CALCIUM LEVEL 8.4 MG/DL (8.8-10.2); CHLORIDE LEVEL 90 MEQ/L (98-107); CREATININE FOR GFR 0.58 MG/DL (0.55-1.30); GLOMERULAR FILTRATION RATE > 60.0 (>39); GLUCOSE, FASTING 171 MG/DL (70-100); MAGNESIUM LEVEL 2.4 MG/DL (1.8-2.4); POTASSIUM SERUM 3.6 MEQ/L (3.5-5.1); SODIUM LEVEL 143 MEQ/L (136-145)
[2017-08-23 07:19] LABS: ANION GAP 1 MEQ/L (8-16)
[2017-08-23 07:23] LABS: CARBON DIOXIDE LEVEL 52 MEQ/L (21-32)
[2017-08-23] MEDS: SPIRONOLACTONE 25 MG TAB PO (07:53)
[2017-08-23] MEDS: CEFDINIR 300 MG CAP (OMNICEF) PO (07:53)
[2017-08-23] MEDS: FAMOTIDINE 20 MG TAB PO (07:53)
[2017-08-23] MEDS: DOXYCYCLINE HYCLATE 100 MG TAB PO (07:53)
[2017-08-23] MEDS: TOLTERODINE TARTRATE 2 MG LA CAP (DETROL LA) PO (07:54)
[2017-08-23] MEDS: MAGNESIUM OXIDE 400 MG TAB (MAG-OX) PO (07:54)
[2017-08-23] MEDS: guaiFENesin ER 600 MG TAB PO (07:54)
[2017-08-23] MEDS: ASPIRIN 81 MG ENTERIC TAB PO (07:54)
[2017-08-23] MEDS: FUROSEMIDE 40 MG TAB PO (07:54)
[2017-08-23] MEDS: DOCUSATE SODIUM 100 MG CAP PO (07:55)
[2017-08-23] MEDS: LORATADINE 10 MG TAB PO (07:55)
[2017-08-23] MEDS: HumaLOG INSULIN (NovoLOG) PER UNIT SC ×2 (07:56→12:42)
[2017-08-23] MEDS: ENOXAPARIN 40 MG/0.4 ML SYRINGE (J1650) SC (07:56)
[2017-08-23] MEDS: ACETYLCYSTEINE 20% 4 ML VIAL (200MG/ML) INH (08:00)
[2017-08-23] MEDS: SYMBICORT 160/4.5MCG INHALER 6GM INH (09:28)
[2017-08-23 11:33] LABS: BEDSIDE GLUCOSE 212 MG/DL (83-110)
== END 2017-08-23 15:05 | disposition home or self-care (01) | DRG 190 ==
LOC: M ED INP 08-18 00:58 → M MS5PR 08-18 01:59 → M ED 19:22
PROVIDERS: Hospitalist
DX: J44.0 Chronic obstructive pulmonary disease with (acute) lower respiratory infection (principal); J18.9 Pneumonia, unspecified organism; J96.11 Chronic respiratory failure with hypoxia; I50.32 Chronic diastolic (congestive) heart failure; J44.1 Chronic obstructive pulmonary disease with (acute) exacerbation; E11.9 Type 2 diabetes mellitus without complications; J30.2 Other seasonal allergic rhinitis; N32.81 Overactive bladder; K21.9 Gastro-esophageal reflux disease without esophagitis; G43.909 Migraine, unspecified, not intractable, without status migrainosus; Z99.81 Dependence on supplemental oxygen; Z79.82 Long term (current) use of aspirin; Z79.52 Long term (current) use of systemic steroids; Z88.1 Allergy status to other antibiotic agents

== ENCOUNTER 2017-09-01 09:39 | Inpatient (IN) | payer MEDICARE, MEDICAID ==
[2017-09-01] MEDS: methylPREDNISolone INJ 125 MG/2 ML VIAL (J2930) IV (10:15)
[2017-09-01] MEDS: IPRATROPIUM 0.5MG/ALBUTEROL 2.5MG INH SOL UD 3ML (DUONEB)(J7620) NEB ×3 (10:35→20:00)
[2017-09-01] MEDS: ALBUTEROL SULFATE 2.5 MG/0.5 ML INH NEB SOLN INH (10:35)
[2017-09-01 10:41] LABS: ABG BASE EXCESS 18.4 (-2.0-2.0); ABG HCO3 48.6 MEQ/L (22.0-26.0); ABG O2 SATURATION 94.4 % (95.0-99.0); ABG STANDARD HCO3 42.6 MEQ/L (22.0-26.0); ABG TOTAL CO2 51.1 MEQ/L (23.0-31.0); ABG pH (ARTERIAL) 7.388 UNITS (7.350-7.450)
[2017-09-01 10:47] LABS: ABG PARTIAL PRESSURE CO2 82.5 mmHg (35.0-45.0)
[2017-09-01 11:40] LABS: BASO % 0.2 % (0.0-1.0); HEMATOCRIT 47.9 % (36.0-47.0); HEMOGLOBIN 15.1 g/dl (12.0-15.5); LYMPH # 1.3 10^3/uL (1.5-4.5); LYMPH % 5.2 % (24.0-44.0); MEAN CORPUSCULAR HGB CONC 31.5 g/dl (32.0-36.5); MEAN CORPUSCULAR VOLUME 91.9 fl (80.0-96.0); MONO # 1.1 10^3/uL (0.0-0.8); MONO % 4.6 % (0.0-5.0); NEUTROPHILS # 21.7 10^3/uL (1.8-7.7); PLATELET COUNT, AUTOMATED 363 10^3/uL (150-450); RED BLOOD COUNT 5.21 10^6/uL (4.00-5.40); RED CELL DISTRIBUTION WIDTH 13.2 % (11.5-14.5); WHITE BLOOD COUNT 24.3 10^3/uL (4.0-10.0)
[2017-09-01 12:18] LABS: INFLUENZA A AMPLIFICATION NEGATIVE (NEGATIVE); INFLUENZA B AMPLIFICATION NEGATIVE (NEGATIVE)
[2017-09-01 12:49] LABS: ALBUMIN 3.3 GM/DL (3.2-5.2); ALBUMIN/GLOBULIN RATIO 0.92 (1.00-1.93); ALKALINE PHOSPHATASE 95 U/L (45-117); ALT/SGPT 23 U/L (12-78); AST/SGOT 17 U/L (7-37); BILIRUBIN,DIRECT 0.2 MG/DL (0.0-0.2); BILIRUBIN,TOTAL 0.6 MG/DL (0.2-1.0); BLOOD UREA NITROGEN 19 MG/DL (7-18); CALCIUM LEVEL 8.7 MG/DL (8.8-10.2); CHLORIDE LEVEL 84 MEQ/L (98-107); CPK CREATINE PHOSPHOKINASE 48 U/L (26-192); CREATININE FOR GFR 0.58 MG/DL (0.55-1.30); GLOMERULAR FILTRATION RATE > 60.0 (>39); GLUCOSE, FASTING 199 MG/DL (70-100); POTASSIUM SERUM 4.1 MEQ/L (3.5-5.1); SODIUM LEVEL 137 MEQ/L (136-145); THYROXINE (T4) 9.4 UG/DL (4.5-12.0); TOTAL PROTEIN 6.9 GM/DL (6.4-8.2); TROPONIN I < 0.02 NG/ML (< 0.10)
[2017-09-01 12:50] LABS: LACTIC ACID SEPSIS PROTOCOL 1.9 MMOL/L (0.4-2.0)
[2017-09-01 12:54] LABS: CK-MB VALUE MASS 3.9 NG/ML (<3.6); MB/CK RELATIVE INDEX 8.12 (< OR =4); NT-PRO BNP 182 PG/ML (<125); THYROID STIMULATING HORMONE 0.344 uIU/ML (0.358-3.740)
[2017-09-01 12:59] LABS: ANION GAP 3 MEQ/L (8-16)
[2017-09-01 13:00] LABS: CARBON DIOXIDE LEVEL 50 MEQ/L (21-32)
[2017-09-01] MEDS ORDERED: traMADol 50 MG TAB PO (15:00)
[2017-09-01] MEDS ORDERED: POLYVINYL ALCOHOL OPHTH SOLN 15 ML(LIQUITEARS) OU (15:00)
[2017-09-01] MEDS ORDERED: SPIRONOLACTONE 25 MG TAB PO (15:00)
[2017-09-01] MEDS ORDERED: GLUCOSE 4 GM CHEW TABLET PO (15:15)
[2017-09-01] MEDS ORDERED: GLUCAGON FOR INJ 1 MG VIAL (J1610) SC (15:15)
[2017-09-01] MEDS ORDERED: DEXTROSE 50% 50 ML SYRINGE IV (15:15)
[2017-09-01 15:41] LABS: ESTIMATED AVERAGE GLUCOSE 160 MG/DL (60-110); HEMOGLOBIN A1c 7.2 %
[2017-09-01] MEDS: FUROSEMIDE 40 MG TAB PO (16:51)
[2017-09-01 18:22] LABS: BEDSIDE GLUCOSE 228 MG/DL (83-110)
[2017-09-01] MEDS: HumaLOG INSULIN (NovoLOG) PER UNIT SC ×2 (18:24→21:27)
[2017-09-01 21:12] LABS: BEDSIDE GLUCOSE 362 MG/DL (83-110)
[2017-09-01] MEDS: LORATADINE 10 MG TAB PO (21:26)
[2017-09-01] MEDS: guaiFENesin ER 600 MG TAB PO (21:26)
[2017-09-01] MEDS: methylPREDNISolone INJ 40 MG/1 ML VIAL (J2920) IV (21:27)
[2017-09-01] MEDS: SYMBICORT 160/4.5MCG INHALER 6GM INH (21:44)
[2017-09-02] MEDS: methylPREDNISolone INJ 40 MG/1 ML VIAL (J2920) IV ×3 (04:33→20:10)
[2017-09-02] MEDS: LEVALBUTEROL 1.25 MG/0.5 ML CONCENTRATE NEB INH (04:37)
[2017-09-02 06:38] LABS: HEMATOCRIT 43.7 % (36.0-47.0); HEMOGLOBIN 13.9 g/dl (12.0-15.5); MEAN CORPUSCULAR HEMOGLOBIN 28.8 pg (27.0-33.0); MEAN CORPUSCULAR HGB CONC 31.8 g/dl (32.0-36.5); MEAN CORPUSCULAR VOLUME 90.7 fl (80.0-96.0); PLATELET COUNT, AUTOMATED 331 10^3/uL (150-450); RED BLOOD COUNT 4.82 10^6/uL (4.00-5.40); WHITE BLOOD COUNT 17.6 10^3/uL (4.0-10.0)
[2017-09-02] MEDS: DOCUSATE SODIUM 100 MG CAP PO ×2 (09:00→09:17)
[2017-09-02] MEDS: TOLTERODINE TARTRATE 2 MG LA CAP (DETROL LA) PO (09:16)
[2017-09-02] MEDS: ENOXAPARIN 30 MG/0.3 ML SYR (J1650) SC (09:16)
[2017-09-02] MEDS: guaiFENesin ER 600 MG TAB PO ×2 (09:16→20:10)
[2017-09-02] MEDS: ASPIRIN 81 MG ENTERIC TAB PO (09:17)
[2017-09-02] MEDS: MAGNESIUM OXIDE 400 MG TAB (MAG-OX) PO (09:17)
[2017-09-02] MEDS: FAMOTIDINE 20 MG TAB PO (09:17)
[2017-09-02] MEDS: HumaLOG INSULIN (NovoLOG) PER UNIT SC ×4 (09:18→20:11)
[2017-09-02 09:21] LABS: BEDSIDE GLUCOSE 200 MG/DL (83-110)
[2017-09-02 11:47] LABS: ABG BASE EXCESS 15.8 (-2.0-2.0); ABG HCO3 42.3 MEQ/L (22.0-26.0); ABG O2 SATURATION 96.1 % (95.0-99.0); ABG PARTIAL PRESSURE CO2 57.8 mmHg (35.0-45.0); ABG PARTIAL PRESSURE O2 76.7 mmHg (75.0-100.0); ABG STANDARD HCO3 39.8 MEQ/L (22.0-26.0); ABG pH (ARTERIAL) 7.482 UNITS (7.350-7.450)
[2017-09-02] MEDS: SYMBICORT 160/4.5MCG INHALER 6GM INH ×2 (11:47→22:08)
[2017-09-02] MEDS: IPRATROPIUM 0.5MG/ALBUTEROL 2.5MG INH SOL UD 3ML (DUONEB)(J7620) NEB ×3 (11:47→20:00)
[2017-09-02 11:54] LABS: BEDSIDE GLUCOSE 239 MG/DL (83-110)
[2017-09-02 17:00] LABS: BEDSIDE GLUCOSE 261 MG/DL (83-110)
[2017-09-02 19:58] LABS: BEDSIDE GLUCOSE 352 MG/DL (83-110)
[2017-09-02] MEDS: LORATADINE 10 MG TAB PO (20:10)
[2017-09-03] MEDS: methylPREDNISolone INJ 40 MG/1 ML VIAL (J2920) IV ×2 (03:36→20:01)
[2017-09-03 07:42] LABS: BEDSIDE GLUCOSE 210 MG/DL (83-110)
[2017-09-03] MEDS: IPRATROPIUM 0.5MG/ALBUTEROL 2.5MG INH SOL UD 3ML (DUONEB)(J7620) NEB ×4 (08:03→19:29)
[2017-09-03] MEDS: SYMBICORT 160/4.5MCG INHALER 6GM INH ×2 (08:04→20:03)
[2017-09-03] MEDS: DOCUSATE SODIUM 100 MG CAP PO (09:00)
[2017-09-03] MEDS: guaiFENesin ER 600 MG TAB PO ×2 (09:20→20:01)
[2017-09-03] MEDS: ASPIRIN 81 MG ENTERIC TAB PO (09:20)
[2017-09-03] MEDS: MAGNESIUM OXIDE 400 MG TAB (MAG-OX) PO (09:21)
[2017-09-03] MEDS: FAMOTIDINE 20 MG TAB PO (09:21)
[2017-09-03] MEDS: HumaLOG INSULIN (NovoLOG) PER UNIT SC ×4 (09:21→21:00)
[2017-09-03] MEDS: ENOXAPARIN 30 MG/0.3 ML SYR (J1650) SC (09:24)
[2017-09-03] MEDS: TOLTERODINE TARTRATE 2 MG LA CAP (DETROL LA) PO (09:24)
[2017-09-03] MEDS: ACETAMINOPHEN TAB 650MG DOSE (2X325MG) PO (13:57)
[2017-09-03 16:34] LABS: BEDSIDE GLUCOSE 187 MG/DL (83-110)
[2017-09-03] MEDS: LORATADINE 10 MG TAB PO (20:01)
[2017-09-03 20:11] LABS: BEDSIDE GLUCOSE 258 MG/DL (83-110)
[2017-09-03 20:39] LABS: BEDSIDE GLUCOSE 243 MG/DL (83-110)
[2017-09-04 06:59] LABS: BASO % 0.1 % (0.0-1.0); HEMATOCRIT 40.5 % (36.0-47.0); HEMOGLOBIN 12.5 g/dl (12.0-15.5); IMMATURE GRANULOCYTE % 0.7 % (0-3.0); LYMPH # 0.8 10^3/uL (1.5-4.5); LYMPH % 5.8 % (24.0-44.0); MEAN CORPUSCULAR HEMOGLOBIN 28.7 pg (27.0-33.0); MEAN CORPUSCULAR HGB CONC 30.9 g/dl (32.0-36.5); MEAN CORPUSCULAR VOLUME 93.1 fl (80.0-96.0); MONO % 7.3 % (0.0-5.0); NEUTROPHILS # 11.5 10^3/uL (1.8-7.7); NEUTROPHILS % 86.1 % (36.0-66.0); PLATELET COUNT, AUTOMATED 232 10^3/uL (150-450); RED BLOOD COUNT 4.35 10^6/uL (4.00-5.40); RED CELL DISTRIBUTION WIDTH 13.1 % (11.5-14.5); WHITE BLOOD COUNT 13.4 10^3/uL (4.0-10.0)
[2017-09-04 07:19] LABS: BLOOD UREA NITROGEN 16 MG/DL (7-18); CALCIUM LEVEL 8.8 MG/DL (8.8-10.2); CHLORIDE LEVEL 94 MEQ/L (98-107); CREATININE FOR GFR 0.46 MG/DL (0.55-1.30); GLOMERULAR FILTRATION RATE > 60.0 (>39); GLUCOSE, FASTING 140 MG/DL (70-100); SODIUM LEVEL 143 MEQ/L (136-145)
[2017-09-04 07:30] LABS: THYROID STIMULATING HORMONE 0.373 uIU/ML (0.358-3.740)
[2017-09-04 07:39] LABS: CARBON DIOXIDE LEVEL 50 MEQ/L (21-32)
[2017-09-04] MEDS: IPRATROPIUM 0.5MG/ALBUTEROL 2.5MG INH SOL UD 3ML (DUONEB)(J7620) NEB ×4 (08:00→23:45)
[2017-09-04] MEDS: DOCUSATE SODIUM 100 MG CAP PO (09:00)
[2017-09-04] MEDS: SYMBICORT 160/4.5MCG INHALER 6GM INH ×2 (09:08→23:45)
[2017-09-04] MEDS: methylPREDNISolone INJ 40 MG/1 ML VIAL (J2920) IV ×2 (09:52→21:11)
[2017-09-04] MEDS: HumaLOG INSULIN (NovoLOG) PER UNIT SC ×4 (09:52→21:12)
[2017-09-04] MEDS: MAGNESIUM OXIDE 400 MG TAB (MAG-OX) PO (09:53)
[2017-09-04] MEDS: guaiFENesin ER 600 MG TAB PO ×2 (09:53→21:12)
[2017-09-04] MEDS: ASPIRIN 81 MG ENTERIC TAB PO (09:53)
[2017-09-04] MEDS: FAMOTIDINE 20 MG TAB PO (09:53)
[2017-09-04] MEDS: TOLTERODINE TARTRATE 2 MG LA CAP (DETROL LA) PO (09:53)
[2017-09-04] MEDS: ENOXAPARIN 30 MG/0.3 ML SYR (J1650) SC (09:53)
[2017-09-04 11:38] LABS: BEDSIDE GLUCOSE 175 MG/DL (83-110)
[2017-09-04] MEDS: SODIUM CHLORIDE 0.9% 1000 ML IV (12:34)
[2017-09-04 17:13] LABS: BEDSIDE GLUCOSE 144 MG/DL (83-110)
[2017-09-04 20:59] LABS: BEDSIDE GLUCOSE 241 MG/DL (83-110)
[2017-09-04] MEDS: LORATADINE 10 MG TAB PO (21:12)
[2017-09-04] MEDS: ACETAMINOPHEN TAB 650MG DOSE (2X325MG) PO (22:41)
[2017-09-04] MEDS: ALPRAZolam 0.25 MG TAB PO (22:41)
[2017-09-05 07:05] LABS: BASO % 0.1 % (0.0-1.0); HEMOGLOBIN 12.3 g/dl (12.0-15.5); IMMATURE GRANULOCYTE % 1.2 % (0-3.0); LYMPH # 0.7 10^3/uL (1.5-4.5); LYMPH % 6.2 % (24.0-44.0); MEAN CORPUSCULAR HEMOGLOBIN 28.7 pg (27.0-33.0); MEAN CORPUSCULAR HGB CONC 30.8 g/dl (32.0-36.5); MEAN CORPUSCULAR VOLUME 93.5 fl (80.0-96.0); MONO # 0.5 10^3/uL (0.0-0.8); MONO % 4.7 % (0.0-5.0); NEUTROPHILS # 9.3 10^3/uL (1.8-7.7); NEUTROPHILS % 87.8 % (36.0-66.0); PLATELET COUNT, AUTOMATED 207 10^3/uL (150-450); RED BLOOD COUNT 4.28 10^6/uL (4.00-5.40); RED CELL DISTRIBUTION WIDTH 13.2 % (11.5-14.5); WHITE BLOOD COUNT 10.6 10^3/uL (4.0-10.0)
[2017-09-05 07:27] LABS: BLOOD UREA NITROGEN 15 MG/DL (7-18); CALCIUM LEVEL 8.7 MG/DL (8.8-10.2); CHLORIDE LEVEL 94 MEQ/L (98-107); CREATININE FOR GFR 0.45 MG/DL (0.55-1.30); GLOMERULAR FILTRATION RATE > 60.0 (>39); GLUCOSE, FASTING 167 MG/DL (70-100); POTASSIUM SERUM 4.4 MEQ/L (3.5-5.1); SODIUM LEVEL 141 MEQ/L (136-145)
[2017-09-05 07:48] LABS: CARBON DIOXIDE LEVEL 51 MEQ/L (21-32)
[2017-09-05] MEDS: methylPREDNISolone INJ 40 MG/1 ML VIAL (J2920) IV (08:33)
[2017-09-05] MEDS: HumaLOG INSULIN (NovoLOG) PER UNIT SC ×4 (08:33→20:19)
[2017-09-05] MEDS: ASPIRIN 81 MG ENTERIC TAB PO (08:34)
[2017-09-05] MEDS: TOLTERODINE TARTRATE 2 MG LA CAP (DETROL LA) PO (08:34)
[2017-09-05] MEDS: FAMOTIDINE 20 MG TAB PO (08:34)
[2017-09-05] MEDS: MAGNESIUM OXIDE 400 MG TAB (MAG-OX) PO (08:34)
[2017-09-05] MEDS: DOCUSATE SODIUM 100 MG CAP PO (08:34)
[2017-09-05] MEDS: ENOXAPARIN 30 MG/0.3 ML SYR (J1650) SC (08:34)
[2017-09-05] MEDS: guaiFENesin ER 600 MG TAB PO ×2 (08:34→20:19)
[2017-09-05] MEDS: SYMBICORT 160/4.5MCG INHALER 6GM INH ×2 (08:36→21:00)
[2017-09-05] MEDS: IPRATROPIUM 0.5MG/ALBUTEROL 2.5MG INH SOL UD 3ML (DUONEB)(J7620) NEB ×3 (08:36→20:00)
[2017-09-05] MEDS ORDERED: NITROGLYCERIN 0.4 MG SUBL TABLET SL (10:15)
[2017-09-05] MEDS ORDERED: GI COCKTAIL 50ML BTL(HYOSCYAMINE/MAALOX/LIDOCAINE VISCOUS)(1:3:1) PO (10:15)
[2017-09-05] MEDS: NITROGLYCERIN 0.4 MG SUBL TABLET SL (10:17)
[2017-09-05] MEDS: MORPHINE 4 MG/ML 1ML VIAL/SYRINGE (J2270) IV (10:24)
[2017-09-05] MEDS: GI COCKTAIL 50ML BTL(HYOSCYAMINE/MAALOX/LIDOCAINE VISCOUS)(1:3:1) PO (10:31)
[2017-09-05 11:24] LABS: BEDSIDE GLUCOSE 200 MG/DL (83-110)
[2017-09-05 11:42] LABS: CK-MB VALUE MASS 4.5 NG/ML (<3.6); CPK CREATINE PHOSPHOKINASE 40 U/L (26-192); MB/CK RELATIVE INDEX 11.25 (< OR =4); TROPONIN I 0.02 NG/ML (< 0.10)
[2017-09-05 17:02] LABS: BEDSIDE GLUCOSE 242 MG/DL (83-110)
[2017-09-05 18:35] LABS: CK-MB VALUE MASS 3.4 NG/ML (<3.6); CPK CREATINE PHOSPHOKINASE 41 U/L (26-192); MB/CK RELATIVE INDEX 8.29 (< OR =4); TROPONIN I 0.02 NG/ML (< 0.10)
[2017-09-05 20:17] LABS: BEDSIDE GLUCOSE 228 MG/DL (83-110)
[2017-09-05] MEDS: predniSONE 20 MG TAB PO (20:19)
[2017-09-05] MEDS: LORATADINE 10 MG TAB PO (20:19)
[2017-09-06] MEDS: LEVALBUTEROL 1.25 MG/0.5 ML CONCENTRATE NEB INH (00:20)
[2017-09-06 01:16] LABS: CK-MB VALUE MASS 5.1 NG/ML (<3.6); CPK CREATINE PHOSPHOKINASE 44 U/L (26-192); MB/CK RELATIVE INDEX 11.59 (< OR =4); TROPONIN I 0.03 NG/ML (< 0.10)
[2017-09-06 07:05] LABS: BASO # 0.1 10^3/uL (0.0-0.2); BASO % 0.5 % (0.0-1.0); HEMATOCRIT 39.4 % (36.0-47.0); HEMOGLOBIN 12.2 g/dl (12.0-15.5); IMMATURE GRANULOCYTE % 1.6 % (0-3.0); LYMPH # 0.6 10^3/uL (1.5-4.5); LYMPH % 6.1 % (24.0-44.0); MEAN CORPUSCULAR VOLUME 93.6 fl (80.0-96.0); MONO # 0.6 10^3/uL (0.0-0.8); MONO % 6.1 % (0.0-5.0); NEUTROPHILS # 8.8 10^3/uL (1.8-7.7); NEUTROPHILS % 85.7 % (36.0-66.0); PLATELET COUNT, AUTOMATED 186 10^3/uL (150-450); RED BLOOD COUNT 4.21 10^6/uL (4.00-5.40); RED CELL DISTRIBUTION WIDTH 13.3 % (11.5-14.5); WHITE BLOOD COUNT 10.3 10^3/uL (4.0-10.0)
[2017-09-06 07:25] LABS: ANION GAP 0 MEQ/L (8-16); BLOOD UREA NITROGEN 16 MG/DL (7-18); CALCIUM LEVEL 8.1 MG/DL (8.8-10.2); CARBON DIOXIDE LEVEL 45 MEQ/L (21-32); CHLORIDE LEVEL 96 MEQ/L (98-107); CK-MB VALUE MASS 4.4 NG/ML (<3.6); CPK CREATINE PHOSPHOKINASE 41 U/L (26-192); GLOMERULAR FILTRATION RATE > 60.0 (>39); GLUCOSE, FASTING 170 MG/DL (70-100); MB/CK RELATIVE INDEX 10.73 (< OR =4); POTASSIUM SERUM 4.5 MEQ/L (3.5-5.1); SODIUM LEVEL 141 MEQ/L (136-145); TROPONIN I 0.02 NG/ML (< 0.10)
[2017-09-06] MEDS: SYMBICORT 160/4.5MCG INHALER 6GM INH (07:39)
[2017-09-06] MEDS: IPRATROPIUM 0.5MG/ALBUTEROL 2.5MG INH SOL UD 3ML (DUONEB)(J7620) NEB ×2 (07:39→10:26)
[2017-09-06] MEDS: HumaLOG INSULIN (NovoLOG) PER UNIT SC (08:57)
[2017-09-06] MEDS: ASPIRIN 81 MG ENTERIC TAB PO (08:58)
[2017-09-06] MEDS: FAMOTIDINE 20 MG TAB PO (08:58)
[2017-09-06] MEDS: TOLTERODINE TARTRATE 2 MG LA CAP (DETROL LA) PO (08:58)
[2017-09-06] MEDS: ENOXAPARIN 30 MG/0.3 ML SYR (J1650) SC (08:58)
[2017-09-06] MEDS: predniSONE 20 MG TAB PO (08:58)
[2017-09-06] MEDS: guaiFENesin ER 600 MG TAB PO (08:58)
== END 2017-09-06 11:08 | disposition home or self-care (01) | DRG 189 ==
LOC: M MS4PR 09-05 20:44 → M ED 09:39 → M ED INP 14:51 → M MSPAV 20:55
DX: J96.22 Acute and chronic respiratory failure with hypercapnia (principal); J44.1 Chronic obstructive pulmonary disease with (acute) exacerbation; I50.32 Chronic diastolic (congestive) heart failure; J96.11 Chronic respiratory failure with hypoxia; G43.909 Migraine, unspecified, not intractable, without status migrainosus; N32.81 Overactive bladder; R91.8 Other nonspecific abnormal finding of lung field; K21.9 Gastro-esophageal reflux disease without esophagitis; R07.2 Precordial pain; E11.9 Type 2 diabetes mellitus without complications; I27.29 Other secondary pulmonary hypertension; F41.9 Anxiety disorder, unspecified; Z99.81 Dependence on supplemental oxygen; Z79.52 Long term (current) use of systemic steroids; Z79.82 Long term (current) use of aspirin; Z79.899 Other long term (current) drug therapy; Z88.1 Allergy status to other antibiotic agents

== ENCOUNTER 2017-12-03 17:58 | Inpatient (IN) | payer MEDICARE, MEDICAID ==
[2017-12-03] MEDS: methylPREDNISolone INJ 125 MG/2 ML VIAL (J2930) IV (18:32)
[2017-12-03] MEDS: IPRATROPIUM 0.5MG/ALBUTEROL 2.5MG INH SOL UD 3ML (DUONEB)(J7620) NEB (18:34)
[2017-12-03 18:51] LABS: ABG BASE EXCESS 12.8 (-2.0-2.0); ABG HCO3 47.6 MEQ/L (22.0-26.0); ABG O2 SATURATION 98.6 % (95.0-99.0); ABG PARTIAL PRESSURE O2 153.2 mmHg (75.0-100.0); ABG STANDARD HCO3 36.7 MEQ/L (22.0-26.0); ABG TOTAL CO2 51.8 MEQ/L (23.0-31.0)
[2017-12-03] MEDS: ONDANSETRON 4MG/2ML VIAL (J2405) IV (18:52)
[2017-12-03 18:54] LABS: ABG PARTIAL PRESSURE CO2 135.4 mmHg (35.0-45.0); ABG pH (ARTERIAL) 7.164 UNITS (7.350-7.450)
[2017-12-03 19:10] LABS: HEMATOCRIT 49.3 % (36.0-47.0); HEMOGLOBIN 14.9 g/dl (12.0-15.5); MEAN CORPUSCULAR HEMOGLOBIN 29.2 pg (27.0-33.0); MEAN CORPUSCULAR HGB CONC 30.2 g/dl (32.0-36.5); MEAN CORPUSCULAR VOLUME 96.5 fl (80.0-96.0); RED BLOOD COUNT 5.11 10^6/uL (4.00-5.40); WHITE BLOOD COUNT 28.3 10^3/uL (4.0-10.0)
[2017-12-03 19:28] LABS: POS COUNT POS FLAG; POSITIVE DIFF POS FLAG
[2017-12-03 19:29] LABS: ADD MANUAL DIFFER YES; DIFF SLIDE NUMBER 134
[2017-12-03 19:33] LABS: ATYPICAL LYMPH 5 % (0-5); BANDS 13 % (< 11); LYMPHOCYTES 12 % (16-52); MONOCYTES 8 % (0-8); NEUTROPHILS 62 % (35-75); PLATELET ESTIMATE INVALID (NORMAL)
[2017-12-03 19:44] LABS: LACTIC ACID SEPSIS PROTOCOL 1.3 MMOL/L (0.4-2.0)
[2017-12-03] MEDS: cefTRIAXone SOD 2 GM in D5W MINI-BAG PLUS 50 ML IV (19:45)
[2017-12-03 20:05] LABS: ALBUMIN 3.4 GM/DL (3.2-5.2); ALBUMIN/GLOBULIN RATIO 0.83 (1.00-1.93); ALKALINE PHOSPHATASE 111 U/L (45-117); ALT/SGPT 15 U/L (12-78); ANION GAP 9 MEQ/L (8-16); AST/SGOT 19 U/L (7-37); BILIRUBIN,DIRECT 0.1 MG/DL (0.0-0.2); BILIRUBIN,TOTAL 0.4 MG/DL (0.2-1.0); BLOOD UREA NITROGEN 11 MG/DL (7-18); CALCIUM LEVEL 8.1 MG/DL (8.8-10.2); CARBON DIOXIDE LEVEL 36 MEQ/L (21-32); CHLORIDE LEVEL 95 MEQ/L (98-107); CPK CREATINE PHOSPHOKINASE 112 U/L (26-192); CREATININE FOR GFR 0.66 MG/DL (0.55-1.30); GLOMERULAR FILTRATION RATE > 60.0 (>39); GLUCOSE, FASTING 165 MG/DL (70-100); MB/CK RELATIVE INDEX 2.68 (< OR =4); NT-PRO BNP 499 PG/ML (<125); POTASSIUM SERUM 4.2 MEQ/L (3.5-5.1); SODIUM LEVEL 140 MEQ/L (136-145); THYROID STIMULATING HORMONE 0.782 uIU/ML (0.358-3.740); TOTAL PROTEIN 7.5 GM/DL (6.4-8.2); TROPONIN I < 0.02 NG/ML (< 0.10)
[2017-12-03] MEDS: NS 1,000 ML IV (20:30)
[2017-12-03 20:48] LABS: HEMATOCRIT 44.9 % (36.0-47.0); HEMOGLOBIN 13.7 g/dl (12.0-15.5); MEAN CORPUSCULAR HEMOGLOBIN 29.3 pg (27.0-33.0); MEAN CORPUSCULAR HGB CONC 30.5 g/dl (32.0-36.5); MEAN CORPUSCULAR VOLUME 95.9 fl (80.0-96.0); PLATELET COUNT, AUTOMATED 315 10^3/uL (150-450); RED BLOOD COUNT 4.68 10^6/uL (4.00-5.40); RED CELL DISTRIBUTION WIDTH 14.2 % (11.5-14.5); WHITE BLOOD COUNT 28.2 10^3/uL (4.0-10.0)
[2017-12-03 21:06] LABS: ABG BASE EXCESS 9.5 (-2.0-2.0); ABG HCO3 40.9 MEQ/L (22.0-26.0); ABG O2 SATURATION 94.2 % (95.0-99.0); ABG PARTIAL PRESSURE O2 75.5 mmHg (75.0-100.0); ABG STANDARD HCO3 33.2 MEQ/L (22.0-26.0); ABG TOTAL CO2 43.9 MEQ/L (23.0-31.0)
[2017-12-03 21:08] LABS: ABG PARTIAL PRESSURE CO2 95.5 mmHg (35.0-45.0)
[2017-12-04] MEDS: ADVAIR HFA 230/21MCG INHALER INH ×3 (00:08→20:39)
[2017-12-04 02:29] LABS: HEMATOCRIT 42.4 % (36.0-47.0); HEMOGLOBIN 12.6 g/dl (12.0-15.5); MEAN CORPUSCULAR HGB CONC 29.7 g/dl (32.0-36.5); MEAN CORPUSCULAR VOLUME 97.5 fl (80.0-96.0); PLATELET COUNT, AUTOMATED 279 10^3/uL (150-450); RED BLOOD COUNT 4.35 10^6/uL (4.00-5.40); RED CELL DISTRIBUTION WIDTH 14.1 % (11.5-14.5); WHITE BLOOD COUNT 26.1 10^3/uL (4.0-10.0)
[2017-12-04] MEDS: methylPREDNISolone INJ 125 MG/2 ML VIAL (J2930) IV ×3 (02:40→18:43)
[2017-12-04 04:56] LABS: HEMOGLOBIN 12.5 g/dl (12.0-15.5); MEAN CORPUSCULAR HEMOGLOBIN 29.8 pg (27.0-33.0); MEAN CORPUSCULAR HGB CONC 30.5 g/dl (32.0-36.5); MEAN CORPUSCULAR VOLUME 97.6 fl (80.0-96.0); PLATELET COUNT, AUTOMATED 281 10^3/uL (150-450); RED CELL DISTRIBUTION WIDTH 14.1 % (11.5-14.5); WHITE BLOOD COUNT 24.7 10^3/uL (4.0-10.0)
[2017-12-04 05:27] LABS: ALBUMIN 2.7 GM/DL (3.2-5.2); ALKALINE PHOSPHATASE 91 U/L (45-117); ALT/SGPT 13 U/L (12-78); ANION GAP 4 MEQ/L (8-16); AST/SGOT 15 U/L (7-37); BILIRUBIN,TOTAL 0.2 MG/DL (0.2-1.0); BLOOD UREA NITROGEN 14 MG/DL (7-18); CALCIUM LEVEL 7.6 MG/DL (8.8-10.2); CARBON DIOXIDE LEVEL 38 MEQ/L (21-32); CHLORIDE LEVEL 98 MEQ/L (98-107); CREATININE FOR GFR 0.62 MG/DL (0.55-1.30); GLOMERULAR FILTRATION RATE > 60.0 (>39); GLUCOSE, FASTING 199 MG/DL (70-100); POTASSIUM SERUM 4.3 MEQ/L (3.5-5.1); SODIUM LEVEL 140 MEQ/L (136-145); TOTAL PROTEIN 7.2 GM/DL (6.4-8.2)
[2017-12-04 06:08] LABS: ABG BASE EXCESS 8.2 (-2.0-2.0); ABG HCO3 39.5 MEQ/L (22.0-26.0); ABG PARTIAL PRESSURE O2 81.1 mmHg (75.0-100.0); ABG TOTAL CO2 42.5 MEQ/L (23.0-31.0)
[2017-12-04 06:12] LABS: ABG PARTIAL PRESSURE CO2 97.7 mmHg (35.0-45.0); ABG pH (ARTERIAL) 7.225 UNITS (7.350-7.450)
[2017-12-04] MEDS: IPRATROPIUM 0.5MG/ALBUTEROL 2.5MG INH SOL UD 3ML (DUONEB)(J7620) NEB ×4 (07:57→20:00)
[2017-12-04] MEDS: TIOTROPIUM INHALER/CAPSULE (SPIRIVA) INH (07:58)
[2017-12-04] MEDS: ENOXAPARIN 40 MG/0.4 ML SYRINGE (J1650) SC (09:49)
[2017-12-04] MEDS: PANTOPRAZOLE 40MG INJ (PROTONIX) (C9113) IV (09:50)
[2017-12-04] MEDS ORDERED: DEXTROSE 50% 50 ML SYRINGE IV (10:30)
[2017-12-04] MEDS ORDERED: GLUCOSE 4 GM CHEW TABLET PO (10:30)
[2017-12-04] MEDS ORDERED: GLUCAGON FOR INJ 1 MG VIAL (J1610) SC (10:30)
[2017-12-04 10:41] LABS: ABG BASE EXCESS 11.7 (-2.0-2.0); ABG HCO3 42.8 MEQ/L (22.0-26.0); ABG O2 SATURATION 97.7 % (95.0-99.0); ABG PARTIAL PRESSURE O2 107.4 mmHg (75.0-100.0); ABG STANDARD HCO3 35.5 MEQ/L (22.0-26.0); ABG TOTAL CO2 45.8 MEQ/L (23.0-31.0); ABG pH (ARTERIAL) 7.257 UNITS (7.350-7.450)
[2017-12-04 10:49] LABS: ABG PARTIAL PRESSURE CO2 98.3 mmHg (35.0-45.0)
[2017-12-04 13:18] LABS: BEDSIDE GLUCOSE 180 MG/DL (83-110)
[2017-12-04] MEDS: HumaLOG INSULIN (NovoLOG) PER UNIT SC ×2 (13:20→18:43)
[2017-12-04 18:31] LABS: BEDSIDE GLUCOSE 154 MG/DL (83-110)
[2017-12-04] MEDS: cefTRIAXone SOD 2 GM in D5W MINI-BAG PLUS 50 ML IV (20:20)
[2017-12-05 00:24] LABS: BEDSIDE GLUCOSE 195 MG/DL (83-110)
[2017-12-05] MEDS: methylPREDNISolone INJ 125 MG/2 ML VIAL (J2930) IV ×4 (02:45→18:26)
[2017-12-05 05:12] LABS: HEMATOCRIT 37.2 % (36.0-47.0); HEMOGLOBIN 11.1 g/dl (12.0-15.5); MEAN CORPUSCULAR HEMOGLOBIN 28.5 pg (27.0-33.0); MEAN CORPUSCULAR HGB CONC 29.8 g/dl (32.0-36.5); MEAN CORPUSCULAR VOLUME 95.6 fl (80.0-96.0); PLATELET COUNT, AUTOMATED 238 10^3/uL (150-450); RED BLOOD COUNT 3.89 10^6/uL (4.00-5.40); RED CELL DISTRIBUTION WIDTH 13.5 % (11.5-14.5)
[2017-12-05 05:34] LABS: BEDSIDE GLUCOSE 190 MG/DL (83-110)
[2017-12-05] MEDS: HumaLOG INSULIN (NovoLOG) PER UNIT SC ×5 (05:36→20:08)
[2017-12-05 05:38] LABS: ALBUMIN 2.5 GM/DL (3.2-5.2); ALBUMIN/GLOBULIN RATIO 0.63 (1.00-1.93); ALKALINE PHOSPHATASE 75 U/L (45-117); ALT/SGPT 14 U/L (12-78); ANION GAP 4 MEQ/L (8-16); AST/SGOT 10 U/L (7-37); BILIRUBIN,TOTAL 0.2 MG/DL (0.2-1.0); BLOOD UREA NITROGEN 18 MG/DL (7-18); CALCIUM LEVEL 8.7 MG/DL (8.8-10.2); CARBON DIOXIDE LEVEL 37 MEQ/L (21-32); CHLORIDE LEVEL 98 MEQ/L (98-107); CREATININE FOR GFR 0.48 MG/DL (0.55-1.30); GLOMERULAR FILTRATION RATE > 60.0 (>39); GLUCOSE, FASTING 168 MG/DL (70-100); POTASSIUM SERUM 4.1 MEQ/L (3.5-5.1); SODIUM LEVEL 139 MEQ/L (136-145); TOTAL PROTEIN 6.5 GM/DL (6.4-8.2)
[2017-12-05 06:23] LABS: ABG BASE EXCESS 14.5 (-2.0-2.0); ABG HCO3 42.4 MEQ/L (22.0-26.0); ABG O2 SATURATION 98.3 % (95.0-99.0); ABG PARTIAL PRESSURE O2 125.9 mmHg (75.0-100.0); ABG STANDARD HCO3 38.4 MEQ/L (22.0-26.0); ABG TOTAL CO2 44.5 MEQ/L (23.0-31.0); ABG pH (ARTERIAL) 7.393 UNITS (7.350-7.450)
[2017-12-05 06:27] LABS: ABG PARTIAL PRESSURE CO2 71.1 mmHg (35.0-45.0)
[2017-12-05] MEDS: TIOTROPIUM INHALER/CAPSULE (SPIRIVA) INH (07:32)
[2017-12-05] MEDS: ADVAIR HFA 230/21MCG INHALER INH ×2 (07:32→20:32)
[2017-12-05] MEDS: IPRATROPIUM 0.5MG/ALBUTEROL 2.5MG INH SOL UD 3ML (DUONEB)(J7620) NEB ×4 (07:33→20:00)
[2017-12-05] MEDS: PANTOPRAZOLE 40MG INJ (PROTONIX) (C9113) IV (08:27)
[2017-12-05] MEDS: ENOXAPARIN 40 MG/0.4 ML SYRINGE (J1650) SC (08:27)
[2017-12-05] MEDS ORDERED: GLUCAGON FOR INJ 1 MG VIAL (J1610) SC (09:00)
[2017-12-05] MEDS ORDERED: DEXTROSE 50% 50 ML SYRINGE IV (09:00)
[2017-12-05] MEDS ORDERED: GLUCOSE 4 GM CHEW TABLET PO (09:00)
[2017-12-05 12:09] LABS: BEDSIDE GLUCOSE 283 MG/DL (83-110)
[2017-12-05] MEDS: ACETAMINOPHEN TAB 650MG DOSE (2X325MG) PO (16:45)
[2017-12-05 17:26] LABS: BEDSIDE GLUCOSE 184 MG/DL (83-110)
[2017-12-05 20:08] LABS: BEDSIDE GLUCOSE 221 MG/DL (83-110)
[2017-12-05] MEDS: PANTOPRAZOLE 40MG TAB (PROTONIX) PO (20:08)
[2017-12-05] MEDS: predniSONE 10 MG TAB PO (20:08)
[2017-12-05] MEDS: CEFDINIR 300 MG CAP (OMNICEF) PO (20:08)
[2017-12-06] MEDS: ACETAMINOPHEN TAB 650MG DOSE (2X325MG) PO ×2 (04:31→20:13)
[2017-12-06 05:36] LABS: HEMATOCRIT 37.8 % (36.0-47.0); HEMOGLOBIN 11.4 g/dl (12.0-15.5); MEAN CORPUSCULAR HEMOGLOBIN 28.9 pg (27.0-33.0); MEAN CORPUSCULAR HGB CONC 30.2 g/dl (32.0-36.5); MEAN CORPUSCULAR VOLUME 95.7 fl (80.0-96.0); PLATELET COUNT, AUTOMATED 264 10^3/uL (150-450); RED BLOOD COUNT 3.95 10^6/uL (4.00-5.40); RED CELL DISTRIBUTION WIDTH 13.3 % (11.5-14.5); WHITE BLOOD COUNT 14.1 10^3/uL (4.0-10.0)
[2017-12-06 06:09] LABS: ALBUMIN 2.6 GM/DL (3.2-5.2); ALBUMIN/GLOBULIN RATIO 0.63 (1.00-1.93); ALKALINE PHOSPHATASE 82 U/L (45-117); ALT/SGPT 14 U/L (12-78); ANION GAP 6 MEQ/L (8-16); AST/SGOT 16 U/L (7-37); BILIRUBIN,TOTAL 0.2 MG/DL (0.2-1.0); BLOOD UREA NITROGEN 20 MG/DL (7-18); CALCIUM LEVEL 8.7 MG/DL (8.8-10.2); CARBON DIOXIDE LEVEL 38 MEQ/L (21-32); CHLORIDE LEVEL 100 MEQ/L (98-107); CREATININE FOR GFR 0.61 MG/DL (0.55-1.30); GLOMERULAR FILTRATION RATE > 60.0 (>39); GLUCOSE, FASTING 164 MG/DL (70-100); POTASSIUM SERUM 4.1 MEQ/L (3.5-5.1); SODIUM LEVEL 144 MEQ/L (136-145); TOTAL PROTEIN 6.7 GM/DL (6.4-8.2)
[2017-12-06 06:32] LABS: ABG HCO3 34.3 MEQ/L (22.0-26.0); ABG PARTIAL PRESSURE CO2 56.5 mmHg (35.0-45.0); ABG PARTIAL PRESSURE O2 156.9 mmHg (75.0-100.0); ABG STANDARD HCO3 31.8 MEQ/L (22.0-26.0); ABG pH (ARTERIAL) 7.401 UNITS (7.350-7.450)
[2017-12-06] MEDS: HumaLOG INSULIN (NovoLOG) PER UNIT SC ×4 (07:34→20:57)
[2017-12-06] MEDS: ADVAIR HFA 230/21MCG INHALER INH ×2 (07:47→20:57)
[2017-12-06] MEDS: TIOTROPIUM INHALER/CAPSULE (SPIRIVA) INH (07:47)
[2017-12-06] MEDS: IPRATROPIUM 0.5MG/ALBUTEROL 2.5MG INH SOL UD 3ML (DUONEB)(J7620) NEB ×4 (08:00→20:00)
[2017-12-06] MEDS: CEFDINIR 300 MG CAP (OMNICEF) PO ×2 (08:31→20:12)
[2017-12-06] MEDS: ENOXAPARIN 40 MG/0.4 ML SYRINGE (J1650) SC (08:31)
[2017-12-06] MEDS: predniSONE 50 MG TAB PO (08:31)
[2017-12-06] MEDS: PANTOPRAZOLE 40MG TAB (PROTONIX) PO (08:31)
[2017-12-06] MEDS ORDERED: FLUBLOK(EGG FREE)(QUAD)INFLUENZA VACC 0.5ML SYRINGE (90682)18YRS&OLDER IM (09:00)
[2017-12-06 11:54] LABS: BEDSIDE GLUCOSE 147 MG/DL (83-110)
[2017-12-06 17:47] LABS: BEDSIDE GLUCOSE 233 MG/DL (83-110)
[2017-12-06 20:13] LABS: BEDSIDE GLUCOSE 243 MG/DL (83-110)
[2017-12-07 05:03] LABS: HEMATOCRIT 39.2 % (36.0-47.0); HEMOGLOBIN 11.8 g/dl (12.0-15.5); MEAN CORPUSCULAR HEMOGLOBIN 28.9 pg (27.0-33.0); MEAN CORPUSCULAR HGB CONC 30.1 g/dl (32.0-36.5); MEAN CORPUSCULAR VOLUME 95.8 fl (80.0-96.0); PLATELET COUNT, AUTOMATED 233 10^3/uL (150-450); RED BLOOD COUNT 4.09 10^6/uL (4.00-5.40); RED CELL DISTRIBUTION WIDTH 13.6 % (11.5-14.5); WHITE BLOOD COUNT 11.7 10^3/uL (4.0-10.0)
[2017-12-07 05:25] LABS: ALBUMIN 2.5 GM/DL (3.2-5.2); ALBUMIN/GLOBULIN RATIO 0.68 (1.00-1.93); ALKALINE PHOSPHATASE 68 U/L (45-117); ALT/SGPT 13 U/L (12-78); ANION GAP 4 MEQ/L (8-16); AST/SGOT 12 U/L (7-37); BILIRUBIN,TOTAL 0.2 MG/DL (0.2-1.0); BLOOD UREA NITROGEN 16 MG/DL (7-18); CALCIUM LEVEL 8.2 MG/DL (8.8-10.2); CARBON DIOXIDE LEVEL 42 MEQ/L (21-32); CHLORIDE LEVEL 103 MEQ/L (98-107); CREATININE FOR GFR 0.55 MG/DL (0.55-1.30); GLOMERULAR FILTRATION RATE > 60.0 (>39); GLUCOSE, FASTING 84 MG/DL (70-100); POTASSIUM SERUM 3.3 MEQ/L (3.5-5.1); SODIUM LEVEL 149 MEQ/L (136-145); TOTAL PROTEIN 6.2 GM/DL (6.4-8.2)
[2017-12-07 05:59] LABS: ABG BASE EXCESS 12.7 (-2.0-2.0); ABG HCO3 40.5 MEQ/L (22.0-26.0); ABG O2 SATURATION 98.3 % (95.0-99.0); ABG PARTIAL PRESSURE CO2 69.3 mmHg (35.0-45.0); ABG PARTIAL PRESSURE O2 127.7 mmHg (75.0-100.0); ABG STANDARD HCO3 36.5 MEQ/L (22.0-26.0); ABG TOTAL CO2 42.7 MEQ/L (23.0-31.0); ABG pH (ARTERIAL) 7.385 UNITS (7.350-7.450)
[2017-12-07] MEDS: HumaLOG INSULIN (NovoLOG) PER UNIT SC ×4 (07:19→21:00)
[2017-12-07] MEDS: IPRATROPIUM 0.5MG/ALBUTEROL 2.5MG INH SOL UD 3ML (DUONEB)(J7620) NEB ×4 (07:40→20:00)
[2017-12-07] MEDS: ADVAIR HFA 230/21MCG INHALER INH ×2 (07:40→20:41)
[2017-12-07] MEDS: TIOTROPIUM INHALER/CAPSULE (SPIRIVA) INH (07:56)
[2017-12-07] MEDS: ENOXAPARIN 40 MG/0.4 ML SYRINGE (J1650) SC (08:25)
[2017-12-07] MEDS: CEFDINIR 300 MG CAP (OMNICEF) PO ×2 (08:25→20:05)
[2017-12-07] MEDS: predniSONE 50 MG TAB PO (08:25)
[2017-12-07] MEDS: POTASSIUM CHLORIDE 10 MEQ SR TABLET PO (08:25)
[2017-12-07] MEDS: PANTOPRAZOLE 40MG TAB (PROTONIX) PO (08:25)
[2017-12-07 12:04] LABS: BEDSIDE GLUCOSE 140 MG/DL (83-110)
[2017-12-07] MEDS ORDERED: traMADol 50 MG TAB PO (14:00)
[2017-12-07] MEDS ORDERED: ALPRAZolam 0.25 MG TAB PO (14:00)
[2017-12-07] MEDS ORDERED: FLUTICASONE PROP 0.05% NASAL SPRAY 16 GM (FLONASE) (14:00)
[2017-12-07 16:51] LABS: BEDSIDE GLUCOSE 189 MG/DL (83-110)
[2017-12-07] MEDS: FAMOTIDINE 20 MG TAB PO (17:35)
[2017-12-07] MEDS: TOLTERODINE TARTRATE 2 MG LA CAP (DETROL LA) PO (17:35)
[2017-12-07] MEDS: FUROSEMIDE 40 MG TAB PO (20:05)
[2017-12-07] MEDS: ACETAMINOPHEN TAB 650MG DOSE (2X325MG) PO (20:05)
[2017-12-07] MEDS: LORATADINE 10 MG TAB PO (20:05)
[2017-12-07] MEDS: guaiFENesin ER 600 MG TAB PO (20:05)
[2017-12-07 20:08] LABS: BEDSIDE GLUCOSE 211 MG/DL (83-110)
[2017-12-07] MEDS ORDERED: SYMBICORT 160/4.5MCG INHALER 6GM INH (21:00)
[2017-12-08] MEDS: ACETAMINOPHEN TAB 650MG DOSE (2X325MG) PO ×2 (00:29→08:03)
[2017-12-08 04:56] LABS: HEMATOCRIT 38.6 % (36.0-47.0); HEMOGLOBIN 11.6 g/dl (12.0-15.5); MEAN CORPUSCULAR HEMOGLOBIN 29.5 pg (27.0-33.0); MEAN CORPUSCULAR HGB CONC 30.1 g/dl (32.0-36.5); MEAN CORPUSCULAR VOLUME 98.2 fl (80.0-96.0); PLATELET COUNT, AUTOMATED 220 10^3/uL (150-450); RED BLOOD COUNT 3.93 10^6/uL (4.00-5.40); RED CELL DISTRIBUTION WIDTH 13.5 % (11.5-14.5); WHITE BLOOD COUNT 11.2 10^3/uL (4.0-10.0)
[2017-12-08 05:45] LABS: ALBUMIN 2.3 GM/DL (3.2-5.2); ALBUMIN/GLOBULIN RATIO 0.64 (1.00-1.93); ALKALINE PHOSPHATASE 66 U/L (45-117); ALT/SGPT 14 U/L (12-78); ANION GAP 2 MEQ/L (8-16); AST/SGOT 17 U/L (7-37); BILIRUBIN,TOTAL 0.3 MG/DL (0.2-1.0); BLOOD UREA NITROGEN 13 MG/DL (7-18); CALCIUM LEVEL 8.2 MG/DL (8.8-10.2); CARBON DIOXIDE LEVEL 45 MEQ/L (21-32); CHLORIDE LEVEL 102 MEQ/L (98-107); CREATININE FOR GFR 0.46 MG/DL (0.55-1.30); GLOMERULAR FILTRATION RATE > 60.0 (>39); GLUCOSE, FASTING 86 MG/DL (70-100); POTASSIUM SERUM 3.9 MEQ/L (3.5-5.1); SODIUM LEVEL 149 MEQ/L (136-145); TOTAL PROTEIN 5.9 GM/DL (6.4-8.2)
[2017-12-08] MEDS: HumaLOG INSULIN (NovoLOG) PER UNIT SC (07:30)
[2017-12-08] MEDS: IPRATROPIUM 0.5MG/ALBUTEROL 2.5MG INH SOL UD 3ML (DUONEB)(J7620) NEB ×2 (08:00→11:42)
[2017-12-08] MEDS: TIOTROPIUM INHALER/CAPSULE (SPIRIVA) INH (08:10)
[2017-12-08] MEDS: ADVAIR HFA 230/21MCG INHALER INH (08:10)
[2017-12-08] MEDS: FAMOTIDINE 20 MG TAB PO (09:27)
[2017-12-08] MEDS: CEFDINIR 300 MG CAP (OMNICEF) PO (09:27)
[2017-12-08] MEDS: ENOXAPARIN 40 MG/0.4 ML SYRINGE (J1650) SC (09:27)
[2017-12-08] MEDS: TOLTERODINE TARTRATE 2 MG LA CAP (DETROL LA) PO (09:27)
[2017-12-08] MEDS: predniSONE 50 MG TAB PO (09:28)
[2017-12-08] MEDS: PANTOPRAZOLE 40MG TAB (PROTONIX) PO (09:28)
[2017-12-08] MEDS: POTASSIUM CHLORIDE 10 MEQ SR TABLET PO (09:28)
[2017-12-08] MEDS: ASPIRIN 81 MG ENTERIC TAB PO (09:28)
[2017-12-08] MEDS: MAGNESIUM OXIDE 400 MG TAB (MAG-OX) PO (09:28)
[2017-12-08] MEDS: DOCUSATE SODIUM 100 MG CAP PO (09:28)
[2017-12-08] MEDS: FUROSEMIDE 40 MG TAB PO (09:28)
[2017-12-08] MEDS: guaiFENesin ER 600 MG TAB PO (09:28)
[2017-12-08] MEDS: FLUBLOK(EGG FREE)(QUAD)INFLUENZA VACC 0.5ML SYRINGE (90682)18YRS&OLDER IM (12:32)
== END 2017-12-08 12:40 | disposition home health service (06) | DRG 193 ==
LOC: M ED 17:58 → M ED INP 20:20 → M ICU 21:31
DX: J14 Pneumonia due to Hemophilus influenzae (principal); J96.22 Acute and chronic respiratory failure with hypercapnia; I50.32 Chronic diastolic (congestive) heart failure; J96.11 Chronic respiratory failure with hypoxia; J44.9 Chronic obstructive pulmonary disease, unspecified; I27.20 Pulmonary hypertension, unspecified; I48.0 Paroxysmal atrial fibrillation; I25.10 Atherosclerotic heart disease of native coronary artery without angina pectoris; I11.0 Hypertensive heart disease with heart failure; K21.9 Gastro-esophageal reflux disease without esophagitis; R32 Unspecified urinary incontinence; M81.0 Age-related osteoporosis without current pathological fracture; N32.81 Overactive bladder; E11.65 Type 2 diabetes mellitus with hyperglycemia; F41.9 Anxiety disorder, unspecified; R91.1 Solitary pulmonary nodule; Z87.891 Personal history of nicotine dependence; Z79.52 Long term (current) use of systemic steroids; Z79.82 Long term (current) use of aspirin; Z79.899 Other long term (current) drug therapy; Z79.1 Long term (current) use of non-steroidal anti-inflammatories (NSAID); Z88.1 Allergy status to other antibiotic agents; Z66 Do not resuscitate

== ENCOUNTER 2018-03-07 10:00 | Day surgery (SDC) | payer MEDICARE, MEDICAID ==
[~2018-03-07] VITALS: Ht 152.4 cm; Wt 62.9 kg
[~2018-03-07 10:00] MED LIST changes: +ACET1TAB55 PO; +ACETAMINOPHEN 325 MG TAB PO PRN; +ARTI99.0 OU; +BSS with VANC/TOB/EPI for EYE CASES IR ONE; +CEFD300CAP PO; +CYCLOPENTOLATE 2% OPHTH SOLN 2ML BTL OS ONE; -DETR1TAB4 PO; +DETR1TAB5 PO; -DILT120C79 PO; +DILT1CAP48 PO; -DOCQ100C PO; +DOCQ100C5 PO; +DOXY100T PO; +FLON1SPR; +HEALON DUET PRO(HEALON 10MG/ML 0.55ML & HEALON ENDOCOAT 30MG/ML 0.85ML) As Ordered ONE; +IPRA0.00 INH; -IPRASOL4 INH; +LEVA1TAB2 PO; +LIDOCAINE 1% SDV 5 ML VIAL As Ordered ONE; +LIDOCAINE 3.5 % 1ML OPHTH TOPICAL GEL OU ONE; +MIDAZOLAM INJ 2 MG/2 ML VIAL (J2250) As Ordered ONE; +MOME0.1C3 EXT; +MOME0.1C3 TOP; +MOXIFLOXACIN IN BSS 0.25MG/0.25ML INTRACAMERAL INJ (OR EYE ONLY)(J2280) As Ordered ONE; +MUCI3TAB PO; +OFLOXACIN 0.3 % (OCUFLOX) OPTH SOL 5ML OS ONE; +PHENYLEPHRINE 2.5% OPHTH SOL 2ML OS ONE; +PHENYLEPHRINE HCL 10 % OPHTH. SOL 5ML OS PRN; +POVIDONE-IODINE 5% OPHTH PREP SOL 30ML As Ordered ONE; +PRED20TA PO; +SPIR-10 PO; -SPIR25TA2 PO; -TOLT1CAP4 PO; +TOLT2CAP4 PO; +TRIAMCINOLONE PRES FR 40 MG/ML 1ML(TRIESENCE)(OR EYE ONLY)(J3300 PER 1MG) As Ordered ONE; +TROPICAMIDE 1% OPHTH SOLN 2ML OS ONE; +VERA1TAB10 PO
[2018-03-07] MEDS ORDERED: SPIR-10 PO (10:48)
[2018-03-07] MEDS ORDERED: LIDOCAINE 2% W/EPIN INJ 20ML **PRES FREE XX ONE (11:35)
[2018-03-07] MEDS ORDERED: HEALON DUET PRO(HEALON 10MG/ML 0.55ML & HEALON ENDOCOAT 30MG/ML 0.85ML) As Ordered ONE (11:45)
[2018-03-07] MEDS ORDERED: TRIMETHOBENZAMIDE 300 MG CAP PO PRN (12:15)
[2018-03-07] MEDS ORDERED: ONDANSETRON 4MG/2ML VIAL (J2405) IV PRN (12:15)
[2018-03-07] MEDS ORDERED: AcetaZOLAMIDE 500 MG ER CAP PO ONE (12:15)
[2018-03-07 12:45] VITALS: BP 132/60
--- NOTE | 2018-03-07 15:16 | RO ---
DATE OF PROCEDURE: 03/07/2018 PREOPERATIVE DIAGNOSIS: Cataract left eye. Myosis left eye. POSTOPERATIVE DIAGNOSIS: Cataract left eye. Myosis left eye. PROCEDURE: PROCEDURE: Femtosecond laser and phacoemulsification of the intraocular lens implantation with the help of ORA. AU00T0 22.5 diopter lens put in along with Malyugin ring 7 mm. SURGEON: Kirby Lawton MD SQL SERVER CONSULTANT: None. ANESTHESIA: Local IV standby. FINDINGS: Cataract of left eye. COMPLICATIONS: None. DESCRIPTION OF PROCEDURE: The patient was brought to the operating room and laid in supine position. A lid speculum was placed, and patient was brought under the femtosecond laser. After the satisfactory placement of the patient interface, primary incision, secondary incision, and arcuate incisions with lens fragmentation was done without any complication per plan. The patients interface was then removed and lid speculum removed. Patient was placed under the microscope. The eye was prepped and draped in a sterile fashion for ophthalmic surgery. Lid speculum was placed. The secondary incision was opened, and EndoCoat was injected into the anterior chamber. The temporal clear corneal incision was then opened and capsulorrhexis removed, followed by hydrodissection. This was followed by phacoemulsification of the lens within the capsular bag. Cortical material was then aspirated, and Healon was injected into the capsular bag. Intraocular lens was then placed. Excess Healon was aspirated. Wound was hydrated. The lid speculum was removed, and patient was returned to the recovery room in stable condition. 1. Because of the small pupil prior to phacoemulsification Healon was placed underneath the iris to elevate the iris, following which the Malyugin ring 7 mm was placed in the anterior chamber to dilate the pupil taking care that the previously rim capsulorrhexis was not engaged. 2. This ring was removed after placement of the intraocular lens. Also prior to placement of the intraocular lens after the cortical material was aspirated Healon was placed in the capsular bag anterior chamber and intraocular pressure was checked after it was noted to be adequate, multiple ORA images and calculations were taken before choosing the intraocular lens which was AU00T0 power 22.5 diopters for the left eye.
== END 2018-03-07 13:05 | disposition home or self-care (01) ==
LOC: M SDC 10:00
PROVIDERS: ATTEND Ophthalmology
DX: H25.9 Unspecified age-related cataract (principal); H57.03 Miosis; I48.91 Unspecified atrial fibrillation; I10 Essential (primary) hypertension; I25.2 Old myocardial infarction; I25.10 Atherosclerotic heart disease of native coronary artery without angina pectoris; J44.9 Chronic obstructive pulmonary disease, unspecified; F41.9 Anxiety disorder, unspecified; K21.9 Gastro-esophageal reflux disease without esophagitis; Z88.1 Allergy status to other antibiotic agents; Z79.82 Long term (current) use of aspirin; Z79.51 Long term (current) use of inhaled steroids; Z79.52 Long term (current) use of systemic steroids; Z87.891 Personal history of nicotine dependence
CPT/HCPCS: 66982; J2250; J2280; J3300; V2632

== ENCOUNTER 2018-04-25 09:51 | Day surgery (SDC) | payer MEDICARE, MEDICAID ==
[~2018-04-25] VITALS: Ht 147.3 cm; Wt 63.5 kg
[~2018-04-25 09:51] MED LIST changes: +CYCLOPENTOLATE 2% OPHTH SOLN 2ML BTL OD ONE; -CYCLOPENTOLATE 2% OPHTH SOLN 2ML BTL OS ONE; +OFLOXACIN 0.3 % (OCUFLOX) OPTH SOL 5ML OD ONE; -OFLOXACIN 0.3 % (OCUFLOX) OPTH SOL 5ML OS ONE; +PHENYLEPHRINE 2.5% OPHTH SOL 2ML OD ONE; -PHENYLEPHRINE 2.5% OPHTH SOL 2ML OS ONE; +PHENYLEPHRINE HCL 10 % OPHTH. SOL 5ML OD PRN; -PHENYLEPHRINE HCL 10 % OPHTH. SOL 5ML OS PRN; +TREL1AER INH; +TROPICAMIDE 1% OPHTH SOLN 2ML OD ONE; -TROPICAMIDE 1% OPHTH SOLN 2ML OS ONE; +fentaNYL 100 MCG/2 ML INJECTION (J3010) As Ordered ONE
[2018-04-25] MEDS ORDERED: ACETYLCHOLINE OPHTH SOLN 1% 2ML (MIOCHOL-E) As Ordered ONE (12:10)
[2018-04-25] MEDS ORDERED: HEALON DUET PRO(HEALON 10MG/ML 0.55ML & HEALON ENDOCOAT 30MG/ML 0.85ML) As Ordered ONE (12:13)
[2018-04-25] MEDS ORDERED: BALANCED SALT IRRIGATION SOL 500ML GLASS BOTTLE (FOR OR EYE COMPOUND) As Ordered ONE (12:16)
[2018-04-25] MEDS ORDERED: AcetaZOLAMIDE 500 MG ER CAP As Ordered ONE ×3 (13:19→13:42)
[2018-04-25 13:30] VITALS: BP 115/54
[2018-04-25] MEDS ORDERED: TRIMETHOBENZAMIDE 300 MG CAP PO PRN (14:00)
[2018-04-25] MEDS ORDERED: AcetaZOLAMIDE 500 MG ER CAP PO ONE (14:00)
== END 2018-04-25 13:40 | disposition home or self-care (01) ==
LOC: M SDC 09:51
PROVIDERS: ATTEND Ophthalmology
DX: H26.9 Unspecified cataract (principal); I48.0 Paroxysmal atrial fibrillation; I10 Essential (primary) hypertension; E78.5 Hyperlipidemia, unspecified; J44.9 Chronic obstructive pulmonary disease, unspecified; Z79.51 Long term (current) use of inhaled steroids; Z99.81 Dependence on supplemental oxygen; Z79.899 Other long term (current) drug therapy; F41.9 Anxiety disorder, unspecified; K21.9 Gastro-esophageal reflux disease without esophagitis; Z88.1 Allergy status to other antibiotic agents
CPT/HCPCS: 66984; 92015; J2250; J2280; J3010; J3300; V2632

== ENCOUNTER 2018-04-27 15:40 | Inpatient (IN) | payer MEDICARE, MEDICAID ==
[~2018-04-27] VITALS: Ht 149.9 cm; Wt 60.7 kg
[~2018-04-27 15:40] MED LIST changes: -ACETAMINOPHEN 325 MG TAB PO PRN; -BSS with VANC/TOB/EPI for EYE CASES IR ONE; -CYCLOPENTOLATE 2% OPHTH SOLN 2ML BTL OD ONE; -HEALON DUET PRO(HEALON 10MG/ML 0.55ML & HEALON ENDOCOAT 30MG/ML 0.85ML) As Ordered ONE; -LIDOCAINE 1% SDV 5 ML VIAL As Ordered ONE; -LIDOCAINE 3.5 % 1ML OPHTH TOPICAL GEL OU ONE; -MIDAZOLAM INJ 2 MG/2 ML VIAL (J2250) As Ordered ONE; -MOXIFLOXACIN IN BSS 0.25MG/0.25ML INTRACAMERAL INJ (OR EYE ONLY)(J2280) As Ordered ONE; -OFLOXACIN 0.3 % (OCUFLOX) OPTH SOL 5ML OD ONE; -PHENYLEPHRINE 2.5% OPHTH SOL 2ML OD ONE; -PHENYLEPHRINE HCL 10 % OPHTH. SOL 5ML OD PRN; -POVIDONE-IODINE 5% OPHTH PREP SOL 30ML As Ordered ONE; -TRIAMCINOLONE PRES FR 40 MG/ML 1ML(TRIESENCE)(OR EYE ONLY)(J3300 PER 1MG) As Ordered ONE; -TROPICAMIDE 1% OPHTH SOLN 2ML OD ONE; -fentaNYL 100 MCG/2 ML INJECTION (J3010) As Ordered ONE
--- NOTE | 2018-04-27 16:26 | REP ---
Clinical: Sepsis. Shock. Comparison: 12/03/2017. Findings: Mediastinum and cardiac silhouette are stable. Lung enriquez demonstrate chronic changes. Superimposed basilar atelectasis cannot be excluded. Stable subtle opacity along the periphery of the left mid lung zone consistent with nodule identified on multiple prior chest x-rays and CT examinations. Biapical scarring. No pneumothorax. Skeletal structures intact. Impression: 1. Chronic stable changes. 2. Subtle superimposed basilar atelectasis cannot be excluded. Electronically Signed by Bernardo Cohn MD 04/27/2018 04:17 P
[2018-04-27 16:52] LABS: ABG BASE EXCESS 9.7 (-2.0-2.0); ABG HCO3 35.9 MEQ/L (22.0-26.0); ABG O2 SATURATION 98.5 % (95.0-99.0); ABG PARTIAL PRESSURE O2 141.8 mmHg (75.0-100.0); ABG STANDARD HCO3 33.5 MEQ/L (22.0-26.0); ABG TOTAL CO2 37.5 MEQ/L (23.0-31.0); ABG pH (ARTERIAL) 7.432 UNITS (7.350-7.450)
[2018-04-27 17:20] LABS: INFLUENZA A AMPLIFICATION NEGATIVE (NEGATIVE); INFLUENZA B AMPLIFICATION NEGATIVE (NEGATIVE)
[2018-04-27 17:26] LABS: AMORPHOUS SEDIMENT SMALL (NEGATIVE); APPEARANCE, URINE CLOUDY (CLEAR); BACTERIA, URINE AUTO 3+ (NEGATIVE); BILIRUBIN, URINE AUTO NEGATIVE (NEGATIVE); BLOOD, URINE BLOOD 1+ (NEGATIVE); COLOR, URINE YELLOW (YELLOW); GLUCOSE, URINE (UA) AUTO NEGATIVE (NEGATIVE); KETONE, URINE AUTO NEGATIVE (NEGATIVE); LEUKOCYTE ESTERASE, URINE AUTO 3+ (NEGATIVE); MUCUS, URINE SMALL (NEGATIVE); NITRITE, URINE AUTO POSITIVE (NEGATIVE); PROTEIN, URINE AUTO NEGATIVE (NEGATIVE); RBC, URINE AUTO 12 /HPF (0-3); SPECIFIC GRAVITY URINE AUTO 1.013 (1.002-1.035); SQUAMOUS EPITHELIAL CELL UR AU 2 /HPF (0-6); UROBILINOGEN, URINE AUTO 0.2 mg/dL (0.0-2.0); WBC, URINE AUTO TNTC /HPF (0-3)
[2018-04-27] MEDS ORDERED: cefTRIAXone SOD 2 GM in D5W MINI-BAG PLUS 50 ML IV ONE (17:30)
[2018-04-27 17:44] LABS: BASO % 0.2 % (0.0-1.0); EOS # 0.1 10^3/uL (0.0-0.50); EOS % 0.4 % (0.0-3.0); HEMATOCRIT 41.8 % (36.0-47.0); HEMOGLOBIN 13.1 g/dl (12.0-15.5); LYMPH # 1.8 10^3/uL (1.5-4.5); LYMPH % 13.8 % (24.0-44.0); MEAN CORPUSCULAR HGB CONC 31.3 g/dl (32.0-36.5); MEAN CORPUSCULAR VOLUME 92.5 fl (80.0-96.0); MONO # 1.1 10^3/uL (0.0-0.8); MONO % 8.6 % (0.0-5.0); NEUTROPHILS # 9.8 10^3/uL (1.8-7.7); NEUTROPHILS % 76.6 % (36.0-66.0); PLATELET COUNT, AUTOMATED 292 10^3/uL (150-450); RED BLOOD COUNT 4.52 10^6/uL (4.00-5.40); WHITE BLOOD COUNT 12.7 10^3/uL (4.0-10.0)
[2018-04-27 17:45] LABS: VENOUS BASE EXCESS 8.2 (-2.0-2.0); VENOUS HCO3 37.7 MEQ/L (23.0-27.0); VENOUS PARTIAL PRESSURE CO2 77.4 mmHg (38.0-50.0); VENOUS PARTIAL PRESSURE O2 57.7 mmHg (30.0-50.0); VENOUS PH 7.305 UNITS (7.330-7.430); VENOUS STANDARD HCO3 31.8 MEQ/L
[2018-04-27] MEDS ORDERED: COMB0.2S OD (17:51)
[2018-04-27] MEDS ORDERED: DURE0.055 OD (17:51)
[2018-04-27] MEDS ORDERED: BRIN1OPH OD (17:51)
[2018-04-27 17:55] LABS: INR 0.97; PARTIAL THROMBOPLASTIN TIME 21.5 SECONDS (25.4-37.6)
[2018-04-27] MEDS ORDERED: ACETAMINOPHEN TAB 650MG DOSE (2X325MG) PO ONE (18:00)
[2018-04-27 18:12] LABS: ALBUMIN 3.4 GM/DL (3.2-5.2); ALT/SGPT 16 U/L (12-78); AMYLASE 27 U/L (25-115); BILIRUBIN,DIRECT 0.1 MG/DL (0.0-0.2); BILIRUBIN,TOTAL 0.3 MG/DL (0.2-1.0); BLOOD UREA NITROGEN 22 MG/DL (7-18); C REACTIVE PROTEIN QUANTITATIV 1.18 MG/DL (0.00-0.30); CALCIUM LEVEL 8.3 MG/DL (8.8-10.2); CARBON DIOXIDE LEVEL 35 MEQ/L (21-32); CHLORIDE LEVEL 94 MEQ/L (98-107); CPK CREATINE PHOSPHOKINASE 72 U/L (26-192); CREATININE FOR GFR 0.69 MG/DL (0.55-1.30); GLOMERULAR FILTRATION RATE > 60.0 (>39); GLUCOSE, FASTING 123 MG/DL (70-100); MB/CK RELATIVE INDEX 3.19 (< OR =4); POTASSIUM SERUM 3.1 MEQ/L (3.5-5.1); SODIUM LEVEL 137 MEQ/L (136-145); TOTAL PROTEIN 7.1 GM/DL (6.4-8.2); TROPONIN I < 0.02 NG/ML (< 0.10)
[2018-04-27] MEDS ORDERED: IPRATROPIUM 0.5MG/ALBUTEROL 2.5MG INH SOL UD 3ML (DUONEB)(J7620) NEB PRN (20:00)
[2018-04-27] MEDS ORDERED: ONDANSETRON 4MG/2ML VIAL (J2405) IV PRN (20:00)
[2018-04-27] MEDS ORDERED: POLYVINYL ALCOHOL OPHTH SOLN 15 ML(LIQUITEARS) OU PRN (20:00)
[2018-04-27] MEDS ORDERED: traMADol 50 MG TAB PO PRN (20:00)
[2018-04-27] MEDS ORDERED: FLUTICASONE PROP 0.05% NASAL SPRAY 16 GM (FLONASE) PRN (20:00)
[2018-04-27] MEDS ORDERED: ALPRAZolam 0.25 MG TAB PO PRN (20:00)
[2018-04-27] MEDS: POTASSIUM CHLORIDE 10 MEQ SR TABLET PO SCH ×2 (20:42→22:23)
[2018-04-27] MEDS: BRINZOLAMIDE 1 % OPHTH SUSP (AZOPT) 10ML OD SCH (20:54)
[2018-04-27] MEDS ORDERED: ENTER DRUG NAME HERE (PATIENT'S OWN MED) OD SCH ×2 (21:00)
--- NOTE | 2018-04-27 23:12 | HPE ---
DATE OF ADMISSION: 04/27/2018 CHIEF COMPLAINT: Subjective fevers and chills, nausea and vomiting, generalized weakness over the past day and a half. HISTORY OF THE PRESENT ILLNESS: The patient is a 73-year-old female with significant past medical history of end-stage chronic obstructive pulmonary disease (COPD), on chronic oxygen 2 liters per day, paroxysmal atrial fibrillation, diastolic congestive heart failure (CHF), coronary artery disease, hypertension, gastroesophageal reflux disease (GERD), osteoporosis, anxiety, chronic back pain. She presents to the emergency room with a day and a half of subjective fevers and chills, nausea, vomiting, nonbloody, nonbilious, generalized weakness. She denies any cough, chest pain, shortness of breath. She denies any dysuria, frequency. She denies any abdominal pain, constipation, or diarrhea. In the emergency room, she was noted to have a grossly positive urinalysis (UA) with too numerous to count white blood cells. Notably, on 04/25/2018, she recently had cataract surgery. She has since seen an mechanical equipment sales engineer. She has no acute complaints in regards to her eyes at this point in time. PAST MEDICAL HISTORY: See history of the present illness. PAST SURGICAL HISTORY: She had total abdominal hysterectomy, appendectomy, tubal ligation, cyst removal, and cataract surgery. ALLERGIES: AZITHROMYCIN and ERYTHROMYCIN. HOME MEDICATIONS: Include: - Xanax - aspirin - Azopt - Colace - Pepcid - Lasix - magnesium oxide - Combigan - Durezol - prednisone - tolterodine - tramadol - verapamil - nebulizers - spironolactone as needed SOCIAL HISTORY: Former smoker. Denies alcohol or illicit drugs. FAMILY HISTORY: COPD. REVIEW OF SYSTEMS: A 12-point review of systems was completed, all of which were negative except those listed in the history of the present illness. VITAL SIGNS ON ADMISSION: Maximum temperature (T max) of 100.6, pulse of 105, respirations are 22, saturating at 95% on 2 liters of nasal cannula. PHYSICAL EXAM: General: She is well nourished, in no apparent distress. Head is normocephalic, atraumatic Neck: Supple. No jugular venous distention (JVP). Lungs: Diminished breath sounds but no discernible wheezing or crackles. Cardiovascular: Regular rate and rhythm. Normal S1, S2. No murmurs, gallops, or rubs. Abdomen: Soft, nontender, nondistended. Positive bowel sounds. No suprapubic tenderness. No costovertebral angle (CVA) tenderness. Extremities: No pitting edema or calf tenderness. Skin: Intact. No rashes, lesions, or breakdown. Neurological: She is alert and oriented times three. Difficulty hearing but no focal neurological deficits. LABS AND IMAGING: White count 12, hemoglobin and hematocrit of 13 over 41, platelets 292. Blood gas 7.4, 55, 141, 35, 98. Coags within normal limits. Chemistry showed a potassium of 3.1, BUN and creatinine of 22 over 0.6. Lactate within normal limits. Troponins are negative. UA shows too numerous to count WBCs, 12 RBCs, 3+ bacteria, 2 squamous cells. Rapid flu is negative. Chest x-ray shows chronic stable changes. ASSESSMENT AND PLAN: Sepsis secondary to urinary tract infection (UTI). Will place the patient on ceftriaxone. Urine culture sent, blood pressure sent - pending. Tylenol as needed for fevers and chills. Tailor as per ID and sensitivities. For paroxysmal atrial fibrillation, this is stable. Continue verapamil as well as aspirin. For recent cataract surgery, continue her eye drops. For chronic obstructive pulmonary disease, this is stable at her baseline. Continue chronic prednisone therapy, nebulizers as needed, oxygen. Anxiety. Continue Xanax. Congestive heart failure. Continue Lasix, as needed spironolactone. Urinary retention. Continue tolterodine. Chronic back pain. Continue tramadol. Supportive: Deep vein thrombosis (DVT) prophylaxis. Heparin subcu. Gastrointestinal (GI) prophylaxis is not indicated. Diet: Cardiac, fluid restriction.
[2018-04-28] MEDS: ACETAMINOPHEN TAB 650MG DOSE (2X325MG) PO PRN (04:10)
[2018-04-28] MEDS: HEPARIN SOD (PORCINE) 5000 UNITS/ML VIAL SC SCH ×3 (06:00→20:50)
[2018-04-28 07:33] LABS: HEMATOCRIT 40.1 % (36.0-47.0); HEMOGLOBIN 12.5 g/dl (12.0-15.5); MEAN CORPUSCULAR HEMOGLOBIN 29.5 pg (27.0-33.0); MEAN CORPUSCULAR HGB CONC 31.2 g/dl (32.0-36.5); MEAN CORPUSCULAR VOLUME 94.6 fl (80.0-96.0); PLATELET COUNT, AUTOMATED 257 10^3/uL (150-450); RED BLOOD COUNT 4.24 10^6/uL (4.00-5.40); WHITE BLOOD COUNT 11.9 10^3/uL (4.0-10.0)
[2018-04-28 08:00] VITALS: BP 115/54
[2018-04-28 08:01] LABS: BLOOD UREA NITROGEN 19 MG/DL (7-18); CALCIUM LEVEL 8.3 MG/DL (8.8-10.2); CARBON DIOXIDE LEVEL 35 MEQ/L (21-32); CHLORIDE LEVEL 99 MEQ/L (98-107); CREATININE FOR GFR 0.62 MG/DL (0.55-1.30); GLOMERULAR FILTRATION RATE > 60.0 (>39); GLUCOSE, FASTING 116 MG/DL (70-100); POTASSIUM SERUM 3.5 MEQ/L (3.5-5.1); SODIUM LEVEL 140 MEQ/L (136-145)
[2018-04-28] MEDS ORDERED: FUROSEMIDE 40 MG TAB PO SCH (09:00)
[2018-04-28] MEDS: FAMOTIDINE 20 MG TAB PO SCH (10:37)
[2018-04-28] MEDS: ASPIRIN 81 MG ENTERIC TAB PO SCH (10:37)
[2018-04-28] MEDS: VERAPAMIL 120 MG SR TAB PO SCH (10:37)
[2018-04-28] MEDS: DOCUSATE SODIUM 100 MG CAP PO SCH (10:37)
[2018-04-28] MEDS: MAGNESIUM OXIDE 400 MG TAB (MAG-OX) PO SCH (10:37)
[2018-04-28] MEDS: TOLTERODINE TARTRATE 2 MG LA CAP (DETROL LA) PO SCH (10:37)
[2018-04-28] MEDS: predniSONE 5 MG TAB PO SCH (10:37)
[2018-04-28] MEDS: BRINZOLAMIDE 1 % OPHTH SUSP (AZOPT) 10ML OD SCH ×3 (10:38→20:50)
[2018-04-28 12:50] VITALS: BP 130/63
[2018-04-28 14:00] VITALS: BP 130/60
[2018-04-28] MEDS: TIOTROPIUM INHALER/CAPSULE (SPIRIVA) INH SCH (14:33)
[2018-04-28] MEDS: SYMBICORT 80/4.5MCG INHALER 6GM INH SCH ×2 (14:33→19:51)
[2018-04-28] MEDS: cefTRIAXone SOD 1 GM in D5W MINI-BAG PLUS 50 ML IV SCH (17:53)
--- NOTE | 2018-04-28 18:15 | ECGEPIP ---
Stationary ECG Study [facility] - ED Test Date: 2018-04-27 Pat Name: JOEL DRAKE Department: Room: - Gender: F Ladle Liner: jeffcheyenne : 1945 Requested By: Maribel Givens Order Number: [id number] Reading MD: Jose Peña Measurements Intervals [place] Rate: 102 P: 67 KS: 124 QRS: 270 QRSD: 130 T: 60 QT: 356 QTc: 465 Interpretive Statements SINUS TACHYCARDIA INDETERMINATE AXIS RIGHT BUNDLE BRANCH BLOCK LAFB CW 12/03/[address] T WAVE CHANGES Electronically Signed On 04-28-2018 18:15:14 EST by Jose Peña
[2018-04-28] MEDS: guaiFENesin ER 600 MG TAB PO SCH (20:50)
[2018-04-28 22:00] VITALS: BP 118/56
--- NOTE | 2018-04-28 23:40 | IPNPDOC ---
Text Note Date of Service The patient was seen on 04/28/18. NOTE SUBJECTIVE: Patient was feeling a little better this morning though still felt shivers and shaking but definitely better compared to on admission. on admission she was febrile to 100.9 no fever this am . Complains of lower abdominal pain mainly in the suprapubic area. PHYSICAL EXAM: VITALS: As below. General: She is well nourished, in no apparent distress. Head is normocephalic, atraumatic Neck: Supple. No jugular venous distention (JVP). Lungs: Diminished breath sounds but no discernible wheezing or crackles. Cardiovascular: Regular rate and rhythm. Normal S1, S2. No murmurs, gallops, or rubs. Abdomen: Soft, nontender, nondistended. Positive bowel sounds. No cost overtebral angle (CVA) tenderness. Extremities: No pitting edema or calf tenderness. Skin: Intact. No rashes, lesions, or breakdown. Neurological: She is alert and oriented times three. Difficulty hearing but no focal neurological deficits. Labs and Radiology: Reviewed. ASSESSMENT and PLAN: The patient is a 73-year-old female with significant past medical history of end-stage chronic obstructive pulmonary disease (COPD), on chronic oxygen 2 liters per day, paroxysmal atrial fibrillation, diastolic congestive heart failure (CHF), coronary artery disease, hypertension, gastroesophageal reflux disease (GERD), osteoporosis, anxiety, chronic back pain recent cataract surgery on 04/25/18, overactive bladder presented to the emergency room with a day and a half of subjective fevers and chills, nausea, vomiting, nonbloody, nonbilious, generalized weakness. In the emergency room, she was noted to have a grossly positive urinalysis (UA) with too numerous to count white blood cells. She was admitted for urinary tract infection. Urinary tract infection will continue ceftriaxone urine culture and blood culture in progress. COPD with chronic hypoxic and hypercarbic respiratory failure. stable will give symbicort and spiriva in place for trelegy, continue prednisone continue oxygen and duonebs prn Diastolic CHF continue diuretics prn. will hold today. hypertension continue verapamil Paroxysmal A fib no issues at this point. Overactive bladder continue tolterodine Cataract surgery on 04/15 continue eye drops. GERD continue famotidine DVT prophylaxis ordered. VS,Fishbone, I+O VS, Fishbone, I+O Laboratory Tests 04/28/18 06:56 Red Blood Count 4.24, Mean Corpuscular Volume 94.6, Mean Corpuscular Hemoglobin 29.5, Mean Corpuscular Hemoglobin Concent 31.2 L, Red Cell Distribution Width 13.2, Calcium Level 8.3 L Vital Signs Date Time Temp Pulse Resp B/P (MAP) Pulse Ox O2 Delivery O2 Flow Rate FiO2 04/28/18 14:00 97.2 60 19 130/60 (83) 96 2.0 04/27/18 23:45 Room Air WOLF IRAHETA MD Apr 28, 2018 23:40
[2018-04-29] MEDS: ACETAMINOPHEN TAB 650MG DOSE (2X325MG) PO PRN ×2 (05:37→23:58)
[2018-04-29] MEDS: HEPARIN SOD (PORCINE) 5000 UNITS/ML VIAL SC SCH ×3 (05:38→21:31)
[2018-04-29 06:00] VITALS: BP 117/56
[2018-04-29 07:22] LABS: HEMATOCRIT 39.9 % (36.0-47.0); HEMOGLOBIN 12.2 g/dl (12.0-15.5); MEAN CORPUSCULAR HEMOGLOBIN 28.8 pg (27.0-33.0); MEAN CORPUSCULAR HGB CONC 30.6 g/dl (32.0-36.5); MEAN CORPUSCULAR VOLUME 94.3 fl (80.0-96.0); PLATELET COUNT, AUTOMATED 240 10^3/uL (150-450); RED BLOOD COUNT 4.23 10^6/uL (4.00-5.40); WHITE BLOOD COUNT 6.7 10^3/uL (4.0-10.0)
[2018-04-29 07:39] LABS: BLOOD UREA NITROGEN 13 MG/DL (7-18); CALCIUM LEVEL 8.3 MG/DL (8.8-10.2); CARBON DIOXIDE LEVEL 34 MEQ/L (21-32); CHLORIDE LEVEL 102 MEQ/L (98-107); CREATININE FOR GFR 0.52 MG/DL (0.55-1.30); GLOMERULAR FILTRATION RATE > 60.0 (>39); GLUCOSE, FASTING 105 MG/DL (70-100); POTASSIUM SERUM 3.5 MEQ/L (3.5-5.1); SODIUM LEVEL 140 MEQ/L (136-145)
[2018-04-29] MEDS: TIOTROPIUM INHALER/CAPSULE (SPIRIVA) INH SCH (08:01)
[2018-04-29] MEDS: SYMBICORT 80/4.5MCG INHALER 6GM INH SCH ×2 (08:01→19:35)
[2018-04-29] MEDS: DOCUSATE SODIUM 100 MG CAP PO SCH (08:08)
[2018-04-29] MEDS: TOLTERODINE TARTRATE 2 MG LA CAP (DETROL LA) PO SCH (08:38)
[2018-04-29] MEDS: FAMOTIDINE 20 MG TAB PO SCH (08:38)
[2018-04-29] MEDS: ASPIRIN 81 MG ENTERIC TAB PO SCH (08:38)
[2018-04-29] MEDS: MAGNESIUM OXIDE 400 MG TAB (MAG-OX) PO SCH (08:38)
[2018-04-29] MEDS: predniSONE 5 MG TAB PO SCH (08:38)
[2018-04-29] MEDS: guaiFENesin ER 600 MG TAB PO SCH ×2 (08:38→20:00)
[2018-04-29] MEDS: VERAPAMIL 120 MG SR TAB PO SCH (08:39)
[2018-04-29] MEDS: BRINZOLAMIDE 1 % OPHTH SUSP (AZOPT) 10ML OD SCH ×3 (08:39→20:00)
[2018-04-29] MEDS ORDERED: PREVNAR 13 VACCINE SYRINGE (CPT CODE:90670) IM ONE (09:00)
--- NOTE | 2018-04-29 11:36 | IPNPDOC ---
Text Note Date of Service The patient was seen on 04/29/18. NOTE SUBJECTIVE: Feeling better this morning. No fever or chills, no abdominal pain, nausea vomiting or diarrhea. urine culture E coli. PHYSICAL EXAM: VITALS: As below. General: She is well nourished, in no apparent distress. Head is normocephalic, atraumatic Neck: Supple. No jugular venous distention (JVP). Lungs: Diminished breath sounds but no discernible wheezing or crackles. Cardiovascular: Regular rate and rhythm. Normal S1, S2. No murmurs, gallops, or rubs. Abdomen: Soft, nontender, nondistended. Positive bowel sounds. No costovertebral angle (CVA) tenderness. Extremities: No pitting edema or calf tenderness. Skin: Intact. No rashes, lesions, or breakdown. Neurological: She is alert and oriented times three. Difficulty hearing but no focal neurological deficits. Labs and Radiology: Reviewed. ASSESSMENT and PLAN: The patient is a 73-year-old female with significant past medical history of end-stage chronic obstructive pulmonary disease (COPD), on chronic oxygen 2 liters per day, paroxysmal atrial fibrillation, diastolic congestive heart failure (CHF), coronary artery disease, hypertension, gastroesophageal reflux disease (GERD), osteoporosis, anxiety, chronic back pain recent cataract surgery on 04/25/18, overactive bladder presented to the emergency room with a day and a half of subjective fevers and chills, nausea, vomiting, nonbloody, nonbilious, generalized weakness. In the emergency room, she was noted to have a grossly positive urinalysis (UA) with too numerous to count white blood cells. She was admitted for urinary tract infection. Urinary tract infection will continue ceftriaxone urine culture E coli. blood culture in progress. COPD with chronic hypoxic and hypercarbic respiratory failure. stable will give symbicort and spiriva in place for trelegy, continue prednisone continue oxygen and duonebs prn Diastolic CHF continue diuretics prn. will hold today. hypertension continue verapamil Paroxysmal A fib no issues at this point. Overactive bladder continue tolterodine Cataract surgery on 04/15 continue eye drops. GERD continue famotidine DVT prophylaxis ordered. VS,Fishbone, I+O VS, Fishbone, I+O Laboratory Tests 04/29/18 07:02 Red Blood Count 4.23, Mean Corpuscular Volume 94.3, Mean Corpuscular Hemoglobin 28.8, Mean Corpuscular Hemoglobin Concent 30.6 L, Red Cell Distribution Width 12.9, Calcium Level 8.3 L Vital Signs Date Time Temp Pulse Resp B/P (MAP) Pulse Ox O2 Delivery O2 Flow Rate FiO2 04/29/18 08:39 84 110/58 04/29/18 06:00 97.8 14 96 2.0 04/27/18 23:45 Room Air I&O- Last 24 Hours up to 6 AM 04/29/18 06:00 Intake Total 1050 ml Output Total 575 ml Balance 475 ml WOLF IRAHETA MD Apr 29, 2018 11:36
[2018-04-29 14:00] VITALS: BP 130/60
[2018-04-29] MEDS: cefTRIAXone SOD 1 GM in D5W MINI-BAG PLUS 50 ML IV SCH (17:33)
[2018-04-29 22:00] VITALS: BP 120/59
[2018-04-30] MEDS: HEPARIN SOD (PORCINE) 5000 UNITS/ML VIAL SC SCH (05:17)
[2018-04-30 06:00] VITALS: BP 121/60
[2018-04-30 06:46] LABS: HEMATOCRIT 38.7 % (36.0-47.0); HEMOGLOBIN 11.9 g/dl (12.0-15.5); MEAN CORPUSCULAR HEMOGLOBIN 29.2 pg (27.0-33.0); MEAN CORPUSCULAR HGB CONC 30.7 g/dl (32.0-36.5); MEAN CORPUSCULAR VOLUME 94.9 fl (80.0-96.0); PLATELET COUNT, AUTOMATED 187 10^3/uL (150-450); RED BLOOD COUNT 4.08 10^6/uL (4.00-5.40); WHITE BLOOD COUNT 6.1 10^3/uL (4.0-10.0)
[2018-04-30 06:59] LABS: BLOOD UREA NITROGEN 11 MG/DL (7-18); CARBON DIOXIDE LEVEL 33 MEQ/L (21-32); CHLORIDE LEVEL 105 MEQ/L (98-107); CREATININE FOR GFR 0.49 MG/DL (0.55-1.30); GLOMERULAR FILTRATION RATE > 60.0 (>39); GLUCOSE, FASTING 99 MG/DL (70-100); POTASSIUM SERUM 3.6 MEQ/L (3.5-5.1); SODIUM LEVEL 141 MEQ/L (136-145)
[2018-04-30] MEDS: TIOTROPIUM INHALER/CAPSULE (SPIRIVA) INH SCH (07:11)
[2018-04-30] MEDS: SYMBICORT 80/4.5MCG INHALER 6GM INH SCH (07:12)
[2018-04-30] MEDS ORDERED: CEFD300CAP PO (08:02)
[2018-04-30 08:59] VITALS: BP 124/57
[2018-04-30] MEDS: FAMOTIDINE 20 MG TAB PO SCH (08:59)
[2018-04-30] MEDS: TOLTERODINE TARTRATE 2 MG LA CAP (DETROL LA) PO SCH (08:59)
[2018-04-30] MEDS: VERAPAMIL 120 MG SR TAB PO SCH (08:59)
[2018-04-30] MEDS: BRINZOLAMIDE 1 % OPHTH SUSP (AZOPT) 10ML OD SCH (09:00)
[2018-04-30] MEDS: predniSONE 5 MG TAB PO SCH (09:00)
[2018-04-30] MEDS: guaiFENesin ER 600 MG TAB PO SCH (09:00)
[2018-04-30] MEDS: ASPIRIN 81 MG ENTERIC TAB PO SCH (09:00)
[2018-04-30] MEDS: MAGNESIUM OXIDE 400 MG TAB (MAG-OX) PO SCH (09:00)
[2018-04-30] MEDS: DOCUSATE SODIUM 100 MG CAP PO SCH (09:00)
== END 2018-04-30 12:21 | disposition home or self-care (01) | DRG 690 ==
LOC: M ED 15:40 → M ED INP 19:50 → M MSPAV 04-28 12:49
PROVIDERS: ADMIT Internal Medicine; ATTEND Internal Medicine Nephrology
DX: N39.0 Urinary tract infection, site not specified (principal); I50.32 Chronic diastolic (congestive) heart failure; I48.0 Paroxysmal atrial fibrillation; I11.0 Hypertensive heart disease with heart failure; I25.10 Atherosclerotic heart disease of native coronary artery without angina pectoris; M81.0 Age-related osteoporosis without current pathological fracture; E78.5 Hyperlipidemia, unspecified; N32.81 Overactive bladder; J44.9 Chronic obstructive pulmonary disease, unspecified; H26.9 Unspecified cataract; F41.9 Anxiety disorder, unspecified; B96.20 Unspecified Escherichia coli [E. coli] as the cause of diseases classified elsewhere; R33.9 Retention of urine, unspecified; K21.9 Gastro-esophageal reflux disease without esophagitis; Z99.81 Dependence on supplemental oxygen; Z88.1 Allergy status to other antibiotic agents; Z79.51 Long term (current) use of inhaled steroids; Z79.899 Other long term (current) drug therapy; Z90.49 Acquired absence of other specified parts of digestive tract; Z79.82 Long term (current) use of aspirin; Z79.52 Long term (current) use of systemic steroids; Z79.891 Long term (current) use of opiate analgesic; Z87.891 Personal history of nicotine dependence

== ENCOUNTER 2018-06-07 11:16 | Inpatient (IN) | payer MEDICARE, MEDICAID ==
[~2018-06-07] VITALS: Ht 152.4 cm; Wt 62.6 kg
[~2018-06-07 11:16] MED LIST changes: -/ADVA50050; -/ESOM40CA; -/ESOM40CA OR; -/MOXI40TA; -/PANT40TA; -/TIOT18INH; -/TIOT18INH INH; -/WARF2TA OR; -/WARF5TA OR; +ADVA1AER2; -ASPI1TAB PO; +ASPI81TA26 PO; +AVEL1TAB2; +BRIN1OPH OD; +COMB0.2S OD; +COUM1TAB16 OR; +COUM1TAB17 OR; +DILT120C78 PO; -DILT1CAP48 PO; +DURE0.055 OD; +NEXI1CAP3; +NEXI1CAP3 OR; +PRED-351 PO; -PRED10TA PO; +PROT1TAB2; +SPIR1CAP; +VERA120T4 PO; -VERA1TAB10 PO
[2018-06-07] MEDS: IPRATROPIUM 0.5MG/ALBUTEROL 2.5MG INH SOL UD 3ML (DUONEB)(J7620) NEB SCH ×7 (11:46→20:00)
[2018-06-07] MEDS ORDERED: MUCI600T31 PO (11:56)
[2018-06-07 11:58] LABS: ABG BASE EXCESS 12.3 (-2.0-2.0); ABG HCO3 41.1 MEQ/L (22.0-26.0); ABG O2 SATURATION 98.2 % (95.0-99.0); ABG STANDARD HCO3 36.1 MEQ/L (22.0-26.0); ABG TOTAL CO2 43.3 MEQ/L (23.0-31.0); ABG pH (ARTERIAL) 7.362 UNITS (7.350-7.450)
[2018-06-07] MEDS ORDERED: MAGN400T PO (11:59)
[2018-06-07] MEDS ORDERED: ACET-683 PO (11:59)
[2018-06-07] MEDS ORDERED: MURO5OIN OD (12:07)
[2018-06-07 12:31] LABS: BASO # 0.1 10^3/uL (0.0-0.2); BASO % 0.3 % (0.0-1.0); EOS % 0.2 % (0.0-3.0); HEMATOCRIT 43.4 % (36.0-47.0); HEMOGLOBIN 13.7 g/dl (12.0-15.5); LYMPH # 1.3 10^3/uL (1.5-4.5); LYMPH % 6.8 % (24.0-44.0); MEAN CORPUSCULAR HEMOGLOBIN 29.7 pg (27.0-33.0); MEAN CORPUSCULAR HGB CONC 31.6 g/dl (32.0-36.5); MEAN CORPUSCULAR VOLUME 93.9 fl (80.0-96.0); MONO # 1.7 10^3/uL (0.0-0.8); NEUTROPHILS # 15.4 10^3/uL (1.8-7.7); PLATELET COUNT, AUTOMATED 314 10^3/uL (150-450); RED BLOOD COUNT 4.62 10^6/uL (4.00-5.40); WHITE BLOOD COUNT 18.5 10^3/uL (4.0-10.0)
[2018-06-07 13:01] LABS: CALCIUM LEVEL 8.2 MG/DL (8.8-10.2); CREATININE FOR GFR 0.99 MG/DL (0.55-1.30); GLOMERULAR FILTRATION RATE 58.5 (>39); MB/CK RELATIVE INDEX 3.01 (< OR =4); POTASSIUM SERUM 2.8 MEQ/L (3.5-5.1); TROPONIN I 0.2 NG/ML (< 0.10)
--- NOTE | 2018-06-07 14:01 | REP ---
Portable chest, 01:23 p.m., single AP sitting view: Comparisons are 04/27/[address] dated 09/04/2017. There is slight effacement of the costophrenic angles, similar to the prior study, bilateral atelectasis versus small bilateral pleural effusions. There is a nodular density peripherally in the left hemithorax, unchanged from the comparison portable chest, and unchanged from the comparison CT. There are bullae in the lung apices bilaterally, unchanged. Cardiac size is normal. The darlene, mediastinum, skeletal structures are unremarkable. Impression: Effacement of the costophrenic angles bilaterally. Nodular density peripherally in the left lung. Electronically Signed by Steffen Singh MD 06/07/2018 01:53 P
[2018-06-07] MEDS ORDERED: FUROSEMIDE 40 MG/4 ML VIAL (J1940) IV ONE (14:15)
[2018-06-07 15:22] LABS: MB/CK RELATIVE INDEX 3.05 (< OR =4); TROPONIN I 0.3 NG/ML (< 0.10)
--- NOTE | 2018-06-07 15:57 | ECGEPIP ---
Stationary ECG Study [facility] - ED Test Date: 2018-06-07 Pat Name: JOEL DRAKE Department: Room: - Gender: F Candy Maker: [facility] : 1945 Requested By: Dru Chacon Order Number: [id number] Reading MD: Nolberto Mai Measurements Intervals [place] Rate: 126 P: 72 OR: 116 QRS: -71 QRSD: 133 T: 50 QT: 355 QTc: 514 Interpretive Statements SINUS TACHYCARDIA WITH SHORT OR INTERVAL INDETERMINATE AXIS RIGHT BUNDLE BRANCH BLOCK Nonspecific ST-T wave abnormalities Prolonged QTc Electronically Signed On 06-07-2018 15:56:46 EDT by Nolberto Mai
[2018-06-07 18:00] LABS: MB/CK RELATIVE INDEX 1.68 (< OR =4); TROPONIN I 0.18 NG/ML (< 0.10)
[2018-06-07] MEDS ORDERED: POTASSIUM CHLORIDE 10 MEQ SR TABLET PO ONE ×2 (18:15→20:30)
[2018-06-07] MEDS ORDERED: traMADol 50 MG TAB PO PRN (20:00)
[2018-06-07] MEDS ORDERED: IPRATROPIUM 0.5MG/ALBUTEROL 2.5MG INH SOL UD 3ML (DUONEB)(J7620) INH PRN (20:00)
[2018-06-07] MEDS ORDERED: SPIRONOLACTONE 25 MG TAB PO PRN (20:00)
[2018-06-07] MEDS ORDERED: IPRATROPIUM 0.5MG/ALBUTEROL 2.5MG INH SOL UD 3ML (DUONEB)(J7620) NEB PRN (20:00)
[2018-06-07] MEDS ORDERED: ALPRAZolam 0.25 MG TAB PO PRN (20:00)
[2018-06-07] MEDS ORDERED: POLYVINYL ALCOHOL OPHTH SOLN 15 ML(LIQUITEARS) OU PRN (20:00)
[2018-06-07] MEDS ORDERED: ACETAMINOPHEN 500 MG TAB PO PRN (20:00)
[2018-06-07] MEDS: methylPREDNISolone INJ 125 MG/2 ML VIAL (J2930) IV SCH (20:07)
--- NOTE | 2018-06-07 20:23 | ECGEPIP ---
Stationary ECG Study [facility] - ED Test Date: 2018-06-07 Pat Name: JOEL DRAKE Department: Room: - Gender: F Manager Packaging: : 1945 Requested By: Dru Chacon Order Number: [id number] Reading MD: Nolberto Mai Measurements Intervals [place] Rate: 89 P: 72 MS: 124 QRS: 47 QRSD: 127 T: 57 QT: 412 QTc: 503 Interpretive Statements SINUS RHYTHM WITH sinus arrhythmia RIGHT BUNDLE BRANCH BLOCK Nonspecific ST-T wave abnormalities Prolonged QTC Rate decreased from 11:35 tracing on same day Electronically Signed On 06-07-2018 20:23:07 EDT by Nolberto Mai
--- NOTE | 2018-06-07 20:39 | HPE ---
DATE OF ADMISSION: 06/07/2018 PRIMARY CARE PROVIDER: Dr. Felton OPHTHALMIC DISPENSER: Dr. Regalado CHIEF COMPLAINT: Weakness, shortness of breath. HISTORY OF PRESENT ILLNESS: The patient is a 73-year-old female who tells me that for the last several days she has been feeling progressively weaker. She also tells me that she feels short of breath. She tells me she always feels short of breath, but it may be a little bit weaker in the last several days too. She tells me she is also having a dry cough. She denies fevers, chills, chest pressure. She denies nausea, vomiting, changes in her bowel or bladder habits, or otherwise feeling anything different than usual. PAST MEDICAL HISTORY: 1. Diastolic congestive heart failure. 2. Chronic obstructive pulmonary disease (COPD) with baseline oxygen of 2 liters with steroid dependence. 3. Paroxysmal atrial fibrillation. 4. Low back pain. 5. Coronary artery disease. 6. Gastroesophageal reflux disease. 7. Osteoporosis. 8. Anxiety. 9. Chronic constipation. 10. Seasonal allergies. SOCIAL HISTORY: She is a former smoker. Denies alcohol or illicit drug use. She lives with her sister, and her sister runs a detention, which she is not a patient. HOME MEDICATIONS: - Ventolin HFA two puffs every 4 hours as needed shortness of breath - Flonase 50 mcg sprayed twice a day as needed nasal congestion - Combigan eyedrops both eyes twice a day - Durezol one drop right eye three times a day - Trelegy Ellipta 100/62.5/25 one puff inhaled daily - ibuprofen 400 mg as needed pain - acetaminophen 1 gram every 6 hours as needed for pain - alprazolam 0.25 mg every 6 hours as needed for anxiety - aspirin 81 mg daily - Azopt one drop right eye three times a day - Colace 100 mg by mouth daily - famotidine 20 mg by mouth daily - furosemide 40 mg by mouth twice a day - Mucinex 600 mg extended release twice a day - DuoNeb every 4 hours as needed for shortness of breath - loratadine 10 mg at bedtime - magnesium oxide 400 mg daily - artificial tears four times a day both eyes as needed for dry eyes - prednisone 5 mg daily - spironolactone 25 mg daily as needed edema - tolterodine tartrate extended release 2 mg by mouth daily - tramadol 50 mg every 6 hours as needed for pain - verapamil 120 mg by mouth daily ALLERGIES: AZITHROMYCIN, ERYTHROMYCIN SURGICAL HISTORY: 1. Hysterectomy 2. Appendectomy. 3. Tubal ligation. 4. Cataract surgery. FAMILY HISTORY: Noncontributory. REVIEW OF SYSTEMS: Negative other than in history of present illness (HPI). VITAL SIGNS: Temperature 100.6, pulse 98, respiratory rate 20, blood pressure (BP) 103/54, oxygen saturation 92% on 2 liters nasal cannula. GENERAL: She is a weak, frail, elderly female lying in a stretcher at a 30-degree angle. She is awake, alert, and oriented times three. She is conversant. She does not appear to be in any acute distress. HEENT: Moist mucous membranes. No elevation in central venous pressure (CVP). CARDIOVASCULAR: S1, S2, regular. She is not tachycardic. RESPIRATORY: She is diminished at the bases, scattered bibasilar rales. ABDOMEN: Bowel sounds present. The abdomen is soft. EXTREMITIES: No clubbing, cyanosis, or edema. LABORATORY STUDIES: WBC 18.5, hemoglobin 13.7, platelet count 314. Chemistry panel: Sodium 136, potassium 2.8, chloride 89, bicarbonate 39, BUN. Troponin 0.2, then 0.3, then 0.18. BNP 1541. IMAGING: The patient did have a chest x-ray that revealed effacement of the costophrenic angles bilaterally. Nodule density peripherally in the left lung. Did have an EKG, which revealed sinus tachycardia, right bundle branch block. ASSESSMENT AND PLAN: This is a 73-year-old female with weakness and some shortness of breath. 1. Weakness and shortness of breath. The etiology is not immediately clear. Given her hypokalemia, she could certainly be weak secondary to this. She is on a diuretic as an outpatient, Lasix 40 twice a day. Does not appear to be on any potassium supplementation. She is on spironolactone but only as needed. She certainly could have become hypokalemia secondary to this. She has received 40 in the emergency room, however, did provide her with an additional 40. I will also add on a magnesium level and supplement if needed. Will see if she improves with this. In regard to her weakness, she will also be seen by physical therapy (PT) and occupational therapy (OT). Given that she has shortness of breath and does complain of some mild cough, I will check a respiratory polymerase chain reaction (PCR) panel as well as provide her with increased steroid dosing. She normally is on prednisone 5 mg a day at home. I will provide her with Solu-Medrol in the interim along with nebulizers in addition to her home inhalers in order to see if we are able to optimize her respiratory status. In the emergency room she is on 3 liters at rest and saturating well. Normally she is on 2 liters continuously at home. She does have a leukocytosis, and it is certainly possible she could have an infectious etiology. I will check a procalcitonin, blood cultures, urinalysis (UA), urine culture. I will check a CT of her chest as well as a lactic acid, but for the time being, without any clear infiltrate on her x-ray, I will hold off on antibiotics; however, my suspicion would be potentially a viral infection. I will trend her blood work tomorrow as well. 2. Abnormal troponin. It is down-trending and very mild. I suspect that this secondary to her presenting symptoms. I suspect that she may likely have some dehydration from over-diuresis given her hypokalemia, hypochloridemia, contraction alkalosis, and elevated BUN to creatinine ratio. She did receive some Lasix in the emergency room. I will hold off on any further diuresis. I will check a CT of her chest, and if she does not have any pulmonary edema or pleural effusions, I would actually consider providing her with some gentle normal saline. She certainly appears at least euvolemic on her physical exam. 3. Anxiety. Continue with alprazolam as needed. 4. Cataracts. Continue with her home eyedrops. 5. Seasonal allergies. Continue with loratadine. 6. Paroxysmal atrial fibrillation. Continue with verapamil. Patient is not on any anticoagulation. She is only on a baby aspirin, which we will continue. Can discuss further with the patient as her hospitalization progresses regarding her potential need for anticoagulation. 7. Gastroesophageal reflux disease. Continue with famotidine. 8. Chronic constipation. Continue with her home bowel regimen. 9. Congestive heart failure, diastolic. She appears euvolemic in nature. As I stated, I will withhold her spironolactone and her Lasix at least for the time being. DISPOSITION: The patient admitted to the medical/surgical floor with remote telemetry. Will continue to monitor closely. KERRIE
--- NOTE | 2018-06-07 20:41 | REPVR ---
EXAM: CT Chest Without Contrast EXAM DATE/TIME: 06/07/2018 8:00 PM CLINICAL HISTORY: 73 years old, female; Signs and symptoms; Shortness of breath; Additional info: SOB TECHNIQUE: Imaging protocol: Axial computed tomography images of the chest without intravenous contrast. Coronal and sagittal reformatted images were created and reviewed. 3D rendering: MIP reconstructed images were created and reviewed. Radiation optimization: All CT scans at this facility use at least one of these dose optimization techniques: automated exposure control; mA and/or kV adjustment per patient size (includes targeted exams where dose is matched to clinical indication); or iterative reconstruction. COMPARISON: CT Chest without contrast 09/04/2017 8:30 AM FINDINGS: Lungs: There is bulla formation in the apical portions of the lung. Pleural space: There is a 2 cm mass left mid lung field with irregular margins and some spiculation to the pleural surface. This nodule has doubled in size since 09/04/2017 suspicious for a malignant nodule. The nodule now measures approximately 2 CM and previously measuring 1 CM. I would recommend CT guided biopsy of this for further evaluation. A PET scan would be helpful as well. There is no evidence of pneumothorax. There is no evidence of pleural effusion. Heart: No cardiomegaly. No pericardial effusion. Aorta: Prominent calcification of the aortic arch consistent with atherosclerotic changes. Lymph nodes: No enlarged lymph nodes. Bones/joints: Scoliosis and degenerative change. Soft tissues: Unremarkable. IMPRESSION: 2 CM solid nodule with lobular borders left midlung field. Spiculations identified contacting the pleural surface. This is suspicious for a malignant mass that has doubled in size since 09/04/2017. Suggest CT guided fine needle aspiration biopsy. Also consider a PET/CT. This Electronically signed by: De Liu On 06/07/2018 20:41:14 PM
[2018-06-07 20:49] LABS: MAGNESIUM LEVEL 2.1 MG/DL (1.8-2.4)
[2018-06-07] MEDS ORDERED: SODIUM CHLORIDE 5% OPHTH OINT 3.5 GM OD SCH (21:00)
[2018-06-07] MEDS ORDERED: LORATADINE 10 MG TAB PO SCH (21:00)
[2018-06-07] MEDS ORDERED: HEPARIN SOD (PORCINE) 5000 UNITS/ML VIAL SQ SCH (21:00)
[2018-06-07 21:30] VITALS: BP 130/61
[2018-06-07] MEDS ORDERED: NS 1,000 ML IV ONE (21:45)
[2018-06-07] MEDS: BRINZOLAMIDE 1 % OPHTH SUSP (AZOPT) 10ML OD SCH (22:05)
[2018-06-07] MEDS: guaiFENesin ER 600 MG TAB PO SCH (22:06)
[2018-06-08 01:02] LABS: CALCIUM LEVEL 8.3 MG/DL (8.8-10.2); CREATININE FOR GFR 1.14 MG/DL (0.55-1.30); GLOMERULAR FILTRATION RATE 49.7 (>39); MB/CK RELATIVE INDEX 2.35 (< OR =4); POTASSIUM SERUM 3.8 MEQ/L (3.5-5.1); TROPONIN I 0.13 NG/ML (< 0.10)
[2018-06-08] MEDS: IPRATROPIUM 0.5MG/ALBUTEROL 2.5MG INH SOL UD 3ML (DUONEB)(J7620) NEB SCH ×3 (01:22→13:45)
[2018-06-08] MEDS: methylPREDNISolone INJ 125 MG/2 ML VIAL (J2930) IV SCH ×2 (04:20→12:51)
[2018-06-08 06:00] VITALS: BP_SYST 133; BP_SYST 99; BP_DIAS 46; BP_DIAS 86
[2018-06-08 06:06] LABS: HEMOGLOBIN 11.9 g/dl (12.0-15.5); MEAN CORPUSCULAR HEMOGLOBIN 29.2 pg (27.0-33.0); MEAN CORPUSCULAR HGB CONC 30.5 g/dl (32.0-36.5); MEAN CORPUSCULAR VOLUME 95.8 fl (80.0-96.0); PLATELET COUNT, AUTOMATED 274 10^3/uL (150-450); RED BLOOD COUNT 4.07 10^6/uL (4.00-5.40); WHITE BLOOD COUNT 12.8 10^3/uL (4.0-10.0)
[2018-06-08 06:33] LABS: BLOOD UREA NITROGEN 25 MG/DL (7-18); CALCIUM LEVEL 8.4 MG/DL (8.8-10.2); CARBON DIOXIDE LEVEL 38 MEQ/L (21-32); CHLORIDE LEVEL 100 MEQ/L (98-107); CREATININE FOR GFR 0.78 MG/DL (0.55-1.30); GLOMERULAR FILTRATION RATE > 60.0 (>39); GLUCOSE, FASTING 211 MG/DL (70-100); MAGNESIUM LEVEL 2.3 MG/DL (1.8-2.4); POTASSIUM SERUM 4.4 MEQ/L (3.5-5.1); SODIUM LEVEL 140 MEQ/L (136-145)
[2018-06-08] MEDS ORDERED: VERAPAMIL 120 MG SR TAB PO SCH (09:00)
[2018-06-08] MEDS ORDERED: FAMOTIDINE 20 MG TAB PO SCH (09:00)
[2018-06-08] MEDS ORDERED: TOLTERODINE TARTRATE 2 MG LA CAP (DETROL LA) PO SCH (09:00)
[2018-06-08] MEDS ORDERED: ASPIRIN 81 MG ENTERIC TAB PO SCH (09:00)
[2018-06-08] MEDS ORDERED: predniSONE 5 MG TAB PO SCH (09:00)
[2018-06-08] MEDS ORDERED: MAGNESIUM OXIDE 400 MG TAB (MAG-OX) PO SCH (09:00)
[2018-06-08] MEDS ORDERED: DOCUSATE SODIUM 100 MG CAP PO SCH (09:00)
[2018-06-08] MEDS ORDERED: FUROSEMIDE 40 MG TAB PO SCH (09:00)
[2018-06-08 09:41] VITALS: BP 121/65
[2018-06-08] MEDS: guaiFENesin ER 600 MG TAB PO SCH (09:41)
[2018-06-08] MEDS: BRINZOLAMIDE 1 % OPHTH SUSP (AZOPT) 10ML OD SCH (09:49)
[2018-06-08 14:00] VITALS: BP 116/52
[2018-06-08] MEDS ORDERED: LORA0.5T11 PO (14:53)
[2018-06-08] MEDS ORDERED: HYOS125TA PO (14:53)
[2018-06-08] MEDS ORDERED: MORP20SO3 PO (14:53)
--- NOTE | 2018-06-08 16:51 | ECGEPIP ---
Stationary ECG Study [facility] Test Date: 2018-06-08 Pat Name: JOEL DRAKE Department: Room: [place] [address] Gender: F Recycling Collections Driver: : 1945 Requested By: JUDY ROBERTS Order Number: [id number] Reading MD: Jace Burnett Measurements Intervals [place] Rate: 92 P: 73 HI: 125 QRS: -2 QRSD: 126 T: 55 QT: 398 QTc: 495 Interpretive Statements SINUS RHYTHM POSSIBLE LEFT ATRIAL ENLARGEMENT INDETERMINATE AXIS RIGHT BUNDLE BRANCH BLOCK Primary lateral ST/T-wave abnormalities No significant change from 06/07/18 Electronically Signed On 06-08-2018 16:51:29 EDT by Jace Burnett
--- NOTE | 2018-06-08 18:54 | DSES ---
DATE OF ADMISSION: 06/07/2018 DATE OF DISCHARGE: 06/08/2018 DISCHARGE DIAGNOSIS: 1. Hypokalemia SECONDARY DIAGNOSIS: 1. Weakness. 2. Shortness of breath. 3. Chronic hypoxic respiratory failure 4. Lung mass 5. Diastolic congestive heart failure. 6. Paroxysmal atrial fibrillation. 7. Chronic low back pain. 8. Coronary artery disease. 9. Gastroesophageal reflux disease. 10. Anxiety. 11. Chronic constipation. 12. Seasonal allergies. HOSPITAL COURSE: The patient is a 73-year-old female who presented by myself yesterday evening. She presented to the hospital getting progressively weaker, as well as occasionally short of breath. She was found to be significantly hypokalemic, as well as hypochloridemia with elevated serum bicarbonate. She did have an abnormal troponin, as well as an elevated lactic acid which did improve with some IV fluids and potassium supplementation. Her symptoms did resolve. A CT scan of her chest was completed during this hospitalization, which revealed a growing speculated 2 cm nodular mass in the left midlung field. Recommendation for biopsy was suggested. I did have a lengthy conversation with the patient and her various family members including her sister Joleen to discuss potential treatment options. She previously had a MOLST form, which was DO NOT RESUSCITATE, DO NOT INTUBATE with limited medical intervention. At this time, the patient and her family have elected for DO NOT RESUSCITATE, DO NOT INTUBATE, comfort measures only with a home hospice evaluation on Monday. They have declined biopsy or further blood draws, returning to the emergency room (ER) for further antibiotic use or vital sign checks. Lengthy conversation greater than 40 minutes was spent at bedside explaining different options including full code, biopsy and active chemotherapy. SUBJECTIVE: The patient tells me that she is eager to go home and she is happy she has lived a long life and does not wish to pursue any biopsy, chemotherapy, surgeries. OBJECTIVE: VITAL SIGNS: Temperature 97.7, pulse 89, respiratory rate 20, blood pressure (BP) 115/62, oxygen saturation 95% on 2 liters, which is her baseline. GENERAL: She is a very pleasant elderly female, awake, alert, and oriented times three, lying in bed in a 30 degree angle, accompanied by her family. She does not appear to be in any acute distress. HEENT: Cranial nerves II/XII grossly intact. She has moist mucous membranes. Elevated jugular venous pulse. CARDIOVASCULAR: S1, S2 regular. RESPIRATORY EXAM: Quite clear. ABDOMEN EXAM: Obese. EXTREMITIES: No clubbing, cyanosis or edema. LABORATORY STUDIES: White blood count (WBC) 12.8, down from 18.5, hemoglobin 11.9, platelet count is 274. Chemistry panel: Sodium 140, potassium 4.4, up from 2.8, chloride 100 up from 89, bicarbonate 38, BUN 25, creatinine 0.7, lactic acid 1.6 down from 3.8. She did have a troponin, which was 0.2, trended down to 0.3 and down to 0.13. Urinalysis was abnormal for possible urinary tract infection. Urine culture was currently pending at the time of discharge. She was improving despite no antibiotic therapies. Imaging as outlined above. ASSESSMENT AND PLAN: This is a 73-year-old female presented with weakness. PROBLEMS: 1. Weakness, possibly secondary to over diuresis and hypokalemia. She did improve with some IV fluid and potassium. She incidentally was found to have a 2 cm growing nodule mass that was speculated in her lung. She has a significant tobacco history and was currently suspicious for malignancy. Lengthy conversations were had with the family She had previously spoke of hospice with Dr. Ron back in November, but did not follow through with it. At this time, the patient's family elected for DO NOT INTUBATE comfort measures only and hospice home to be initiated on Monday. DISPOSITION: The patient will be discharged home in the care of her family, appears to be at her functional baseline. She is on home hospice Monday. Her activity and diet are as tolerated. MEDICATIONS AT THE TIME OF DISCHARGE: - hyoscyamine 0.125 mg every 4 hours as needed for terminal secretions. - lorazepam 0.5 mg every 4 hours as needed for anxiety/agitation. - morphine sulfate 0.25 to 1 milliliter every 2 hours as needed for pain or dyspnea, 100 mg per 5 mL. - acetaminophen 1 gram every 6 hours as needed for pain. - Ventolin HFA 2 puffs every 4 hours as needed for shortness of breath. - alprazolam 0.25 mg every 6 hours as needed for anxiety. - Combigan one drop twice a day - Azopt one drop three times a day - Durezol 0.05% one drop right eye three times a day - Colace 100 mg daily - lamotrigine 20 mg daily - Flonase 50 mcg nasally twice daily as needed for secretions. - Trelegy Ellipta 100-52.5-25 one puff inhaled daily - Mucinex 600 mg twice a day - ibuprofen 400 mg daily as needed for pain. - DuoNeb 3 milliliters every 4 hours as needed for shortness of breath or wheezing. - Claritin 10 mg at bedtime (q.h.s.). - Artificial Tears one drop in each eye four times daily as needed for dry eyes - prednisone 5 mg daily - sodium chloride applied to the right eye daily at bedtime - aldactone 25 mg as needed for lower extremity edema - tolterodine tartrate 2 mg daily - tramadol 50 mg every 6 hours as needed for pain - verapamil 120 mg daily 45 minutes spent organizing safe disposition, answering all the questions to the patient's family satisfaction.
== END 2018-06-08 15:53 | disposition hospice, home (50) | DRG 641 ==
LOC: EDBD 11:16 → M ED 11:16 → M ED INP 19:54 → M MSPAV 21:00
PROVIDERS: ADMIT Internal Medicine; ATTEND Internal Medicine
DX: E87.6 Hypokalemia (principal); I50.32 Chronic diastolic (congestive) heart failure; J96.11 Chronic respiratory failure with hypoxia; R91.8 Other nonspecific abnormal finding of lung field; E87.3 Alkalosis; J44.9 Chronic obstructive pulmonary disease, unspecified; I48.0 Paroxysmal atrial fibrillation; M54.5 Low back pain; Z66 Do not resuscitate; I25.10 Atherosclerotic heart disease of native coronary artery without angina pectoris; K21.9 Gastro-esophageal reflux disease without esophagitis; M81.0 Age-related osteoporosis without current pathological fracture; R53.1 Weakness; E86.0 Dehydration; F41.9 Anxiety disorder, unspecified; K59.09 Other constipation; J30.2 Other seasonal allergic rhinitis; Z87.891 Personal history of nicotine dependence; Z79.82 Long term (current) use of aspirin; Z79.52 Long term (current) use of systemic steroids; Z79.899 Other long term (current) drug therapy; Z98.49 Cataract extraction status, unspecified eye; Z90.49 Acquired absence of other specified parts of digestive tract; Z90.710 Acquired absence of both cervix and uterus